=== PATIENT | male | born 1950 | race Hispanic/Latino ===

== ENCOUNTER 2021-04-08 14:05 | Inpatient (IN) | payer OTHER ==
--- OUTSIDE RECORDS SUMMARY | 2021-04-08 14:08 | XMS REPORT | Continuity of Care Document ---
:1950 Author Organization [facility] t Address [address] [place] [address] Care Team Providers Name Role Phone Tonya, Tiago Main Attending Clinician Unavailable Demetrio DACOSTA Attending Clinician Payers Payer Name Policy Type Policy Number Effective Date Expiration Date S ource Problems This patient has no known problems. Allergies, Adverse Reactions, Alerts Allergy Allergy Status Severity Reaction(s) Onset Inactive Treating Comm ents Source Name Type Date Date Clinician No Known DA Active [facility] Allergie 07-19 [facility] 00:00: [address] Medications This patient has no known medications. Procedures This patient has no known procedures. Encounters Start End Encounter Admission Attending Care Care Encounter Source Date/Time Date/Time Type Type Clinicians Facility Department ID 2021-04-06 2021-04-06 [facility] [id number] 15:49:04 16:04:04 Visit Lab [facility] [id number] Jennifer [id number] Lori [phone] [place] [address] Building 2021-04-06 2021-04-06 Office SERGIO Atkinson [id number] 14:38:26 15:24:02 Visit Christine Gallo [id number] Jennifer [id number] Professmelissa [phone] [facility] 044 Building Results This patient has no known results.
[2021-04-08 15:38] LABS: Urine Blood 1+ (Negative); Urine Glucose Negative (Negative); Urine Protein 3+ (Negative); Urine Specific Gravity 1.025 (1.005-1.030)
[2021-04-08 15:42] LABS: Basophils % 0.3 % (0-1.3); Hematocrit 44.7 % (39.6-49.0); Lymphocytes % 5.5 % (15.3-44.8); MPV 8.5 fL (7.6-11.3); RBC Red Blood Cell Count 5.47 M/uL (4.33-5.43)
[2021-04-08 16:00] LABS: Albumin 3.4 g/dL (3.4-5.0); Bilirubin Direct 0.3 mg/dL (0-0.2); Potassium 3.9 mmol/L (3.5-5.1); Protein, Total 8.8 g/dL (6.4-8.2)
[2021-04-08 16:06] LABS: Urine Bacteria >50 /HPF (NONE SEEN); Urine RBC <5 /HPF (NONE SEEN)
--- NOTE | 2021-04-08 16:27 | RAD REPORT ---
EXAM DESCRIPTION: US - Scrotum Testicles - 04/08/2021 4:11 pm CLINICAL HISTORY: Testicular pain COMPARISON: None FINDINGS: Right testicle measures 4.1 x 3.3 x 3.2 centimeters. Echotexture is homogeneous. Normal bl ood flow Left testicle measures 3.9 x 2.6 x 3 centimeters. Echotexture is homogeneous. Normal blood flow The epididymides are normal in size and echotexture. Normal blood flow is seen. Millimeter right spermatocele. Moderate complex right hydrocele. Small left hydrocele. Scrotal skin thickening IMPRESSION: Moderate complex right hydrocele may be secondary to inflammation or infection Scrotal skin thickening
--- NOTE | 2021-04-08 16:42 | RAD REPORT ---
EXAM DESCRIPTION: CT - Abdomen Pelvis W Contrast - 04/08/2021 4:21 pm CLINICAL HISTORY: Abdominal pain/right flank pain COMPARISON: none. TECHNIQUE: Computed axial tomography of the abdomen pelvis was obtained. 100 cc Isovue-300 was admin istered intravenously. Oral contrast was not requested which limits evaluation of bowel. All CT scans are performed using dose optimization technique as appropriate and may include automated exposure control or mA/KV adjustment according to patient size. FINDINGS: The liver, spleen, pancreas, adrenal and right kidney appear unremarkable. Cortical thinni ng left kidney perhaps secondary to prior inflammation There is no evidence of diverticulitis. Spondylosis involves the lumbar spine resulting spinal stenos is. Spondylolysis L5. Slight anterior subluxation of L5 on S1 IMPRESSION: No acute abnormality is displayed.
[2021-04-08] MEDS ORDERED: CEFTRIAXONE/SWI 1gm 1 GM/10 ML SYR ONE (16:54)
[2021-04-08 18:01] LABS: Anisocytosis SLIGHT; Blood Morphology Comment NOTED (NOT SEEN); Platelet Estimate ADEQ; White Blood Cell Scan OK (OK)
--- NOTE | 2021-04-08 19:03 | ER ---
Nurse's Notes [facility] Name: Chay Judge Age: 70 yrs Sex: Male : 1950 Arrival Date: 04/08/2021 Time: 14:12 Bed 13 Private MD: Diagnosis: Urinary tract infection, site not specified;Moderate complex right hydrocele Presentation: 04/08 14:15 Chief complaint: Patient states: Last Vaughn had R testicle swollen, 03/31/2021. Was ca1 supposed to be schedule for US. Last night, the R testicle started hurting real bad, also started having R lower back pain, dark colored, strong odor urine. Reports fever this morning. Coronavirus screen: Client denies travel out of the [place] in the last 14 days. fever, Client presents with at least one sign or symptom that may indicate coronavirus-19. Standard/surgical mask placed on the client. Provider contacted for isolation considerations. Ebola Screen: Patient negative for fever greater than or equal to 101.5 degrees Fahrenheit, and additional compatible Ebola Virus Disease symptoms Patient denies exposure to infectious person. Patient denies travel to an Ebola-affected area in the 21 days before illness onset. No symptoms or risks identified at this time. Initial Sepsis Screen: Does the patient meet any 2 criteria? No. Patient's initial sepsis screen is negative. Does the patient have a suspected source of infection? No. Patient's initial sepsis screen is negative. Risk Assessment: Do you want to hurt yourself or someone else? Patient reports no desire to harm self or others. Onset of symptoms was April 08, 2021. 14:15 Method Of Arrival: Ambulatory ca1 14:15 Acuity: YUSRA 3 ca1 Historical: - Allergies: 14:21 No Known Allergies; ca1 - PMHx: 14:21 Hypertension; Diabetes - NIDDM; CHF; ca1 - PSHx: 14:21 None; ca1 - Immunization history:: Client reports having NOT received the Covid vaccine. Pneumococcal vaccine is up to date, Flu vaccine is up to date. - Social history:: Smoking status: Patient reports the use of cigarette tobacco products, smokes one-half pack cigarettes per day. Screenin:43 Abuse screen: Denies threats or abuse. Denies injuries from another. Nutritional zb screening: No deficits noted. Tuberculosis screening: No symptoms or risk factors identified. Fall Risk None identified. Assessment: 15:00 General: Appears in no apparent distress. uncomfortable, Behavior is calm, cooperative. zb Pain: Complains of pain in right low back and right testicle Quality of pain is described as aching, tender, throbbing. Neuro: Level of Consciousness is awake, alert, obeys commands, Oriented to person, place, time, situation. Cardiovascular: Edema is 2+ to left midcalf, left ankle, right midcalf and right ankle. Respiratory: Airway is patent. GI: Abdomen is obese. : Urine is clear, Swelling noted on scrotum Reports pain in right lower quadrant(s) testicle. Derm: Skin is intact, Skin is normal. Musculoskeletal: Circulation, motion, and sensation intact. Range of motion: intact in all extremities. 16:00 Reassessment: Patient appears in no apparent distress at this time. Patient and/or zb family updated on plan of care and expected duration. Pain level reassessed. Patient is alert, oriented x 3, equal unlabored respirations, skin warm/dry/pink. 17:12 Reassessment: patient falling asleep. desated to [address] on 1L o2 while asleep. zb 18:34 Reassessment: Patient appears in no apparent distress at this time. Patient and/or zb family updated on plan of care and expected duration. Pain level reassessed. Patient is alert, oriented x 3, equal unlabored respirations, skin warm/dry/pink. no issues at this time. 19:00 Reassessment: ECP at bedside discussing care with patient. zb Vital Signs: 14:15 BP 156 / 83; Pulse 88; Resp 16; Temp 100.7(O); Pulse Ox 98% on R/A; Weight 117.03 kg ca1 (R); Height 5 ft. 3 in. (160.02 cm) (R); Pain 9/10; 15:45 BP 141 / 76; Pulse 90; Resp 18; Pulse Ox 95% on R/A; zb 16:30 BP 149 / 66; Pulse 93; Resp 16; Pulse Ox 95% on R/A; zb 17:00 BP 150 / 67; Pulse 92; Resp 16; Pulse Ox 98% on R/A; zb 18:34 BP 139 / 69; Pulse 99; Resp 16; Pulse Ox 95% on R/A; zb 14:15 Body Mass Index 45.70 (117.03 kg, 160.02 cm) ca1 ED Course: 14:12 Patient arrived in ED. bp1 14:20 Triage completed. ca1 14:21 Arm band placed on right wrist. ca1 14:23 Lacho Mason NP is PHCP. pm1 14:23 Vickey Jennings MD is Attending Physician. pm1 15:30 Inserted saline lock: 20 gauge in right antecubital area, using aseptic technique. zb Blood collected. 15:42 Meagan Farrar, YANELIS is Primary Nurse. zb 16:11 US Scrotum Testicles In Process Unspecified. EDMS 16:21 CT Abd/Pelvis - IV Contrast Only In Process Unspecified. EDMS 19:02 Antonio Brown DO is Hospitalizing Provider. pm1 04/09 01:41 Primary Nurse role handed off by Meagan Farrar RN tt3 07:18 Marah Rodriguez RN is Primary Nurse. ll1 07:51 No provider procedures requiring assistance completed. Patient admitted, IV remains in ll1 place. 07:52 Patient has correct armband on for positive identification. Bed in low position. Call ll1 light in reach. Side rails up X 1. Administered Medications: 04/08 16:40 Drug: Rocephin (cefTRIAXone) 1 grams Route: IV; Rate: calculated rate; Site: left zb antecubital; 18:58 Follow up: Response: No adverse reaction; IV Status: Completed infusion zb 18:58 Drug: LevaQUIN (levofloxacin) 750 mg Volume: 150 ml; Route: IVPB; Infused Over: 90 zb mins; Site: left antecubital; 20:00 Follow up: Response: No adverse reaction; IV Status: Completed infusion; IV Intake: zb 150ml Intake: 20:00 IV: 150ml; Total: 150ml. zb Outcome: 19:03 Decision to Hospitalize by Provider. pm1 04/09 07:51 Admitted to Med/surg accompanied by tech, room 216, with chart, Report called to maxime Kowalski RN on . Condition: stable 07:52 Patient left the ED. 1 Signatures: Dispatcher [employer] EDMS Lacho Mason NP INDUSTRIAL COFFEE GRINDER pm1 Trisha Arreola RN RN ca1 Marah Rodriguez, RN RN ll1 Christine Marshall bp1 Mukesh Bello tt3 Meagan Farrar, RN RN zb
--- NOTE | 2021-04-08 19:03 | EDPHYS ---
Physician Documentation [facility] Name: Chay Judge Age: 70 yrs Sex: Male : 1950 Arrival Date: 04/08/2021 Time: 14:12 Bed 13 Private MD: ED Physician Vickey Jennings HPI: 04/08 14:51 This 70 yrs old Male presents to ER via Ambulatory with complaints of Back pm1 Pain, Fever. 14:51 The patient presents with flank pain, of the right low back, swelling, of the right pm1 testicle. Onset: The symptoms/episode began/occurred right scrotal swelling onset 03/31. Modifying factors: The symptoms are alleviated by nothing, the symptoms are aggravated by nothing. Associated signs and symptoms: Pertinent positives: fever onset this AM and right flank pain. Severity of symptoms: in the emergency department the symptoms are actually worse. The patient has not experienced similar symptoms in the past. The patient has been recently seen by a physician: the patient's primary care provider, with similar presenting complaints, US ordered and has appointment scheduled for 04/13. Patient did not have the U/S performed. 15:34 Patient reports trauma to his testicles prior to onset of symptoms. Right pm1 scrotal/testicular area pinched by toilet seat when sitting down prior to onset of swelling and pain. Historical: - Allergies: 14:21 No Known Allergies; ca1 - PMHx: 14:21 Hypertension; Diabetes - NIDDM; CHF; ca1 - PSHx: 14:21 None; ca1 - Immunization history:: Client reports having NOT received the Covid vaccine. Pneumococcal vaccine is up to date, Flu vaccine is up to date. - Social history:: Smoking status: Patient reports the use of cigarette tobacco products, smokes one-half pack cigarettes per day. ROS: 14:51 Eyes: Negative for injury, pain, redness, and discharge, ENT: Negative for injury, pm1 pain, and discharge, Neck: Negative for injury, pain, and swelling, Abdomen/GI: Negative for abdominal pain, nausea, vomiting, diarrhea, and constipation, Back: Negative for injury and pain, MS/Extremity: Negative for injury and deformity, Skin: Negative for injury, rash, and discoloration, Neuro: Negative for headache, weakness, numbness, tingling, and seizure. 14:51 Constitutional: Positive for fever, Negative for poor PO intake. 14:51 Cardiovascular: Negative for chest pain, edema. 14:51 Respiratory: Negative for cough, shortness of breath. 14:51 : Positive for testicular pain swelling right testicle, right flank pain. Exam: 14:51 Constitutional: This is a well developed, well nourished patient who is awake, alert, pm1 and in no acute distress. 14:51 Head/Face: Normocephalic, atraumatic. 14:51 Skin: Warm, dry with normal turgor. Normal color with no rashes, no lesions, and no evidence of cellulitis. 14:51 MS/ Extremity: Pulses equal, no cyanosis. Neurovascular intact. Full, normal range of motion. 14:51 Eyes: Exam is negative for acute changes, Extraocular movements: no acute changes, Conjunctiva: normal, Sclera: no acute changes, icterus, is not appreciated. 14:51 ENT: Mouth: Lips: normal, Oral mucosa: normal, pink and intact, moist. 14:51 Cardiovascular: Rate: normal, Rhythm: regular, Pulses: no pulse deficits are appreciated, Edema: is not appreciated. 14:51 Respiratory: Exam negative for acute changes, respiratory distress, shortness of breath, Breath sounds: are clear throughout. 14:51 Abdomen/GI: Inspection: obese Palpation: abdomen is soft and non-tender. 14:51 Back: pain, that is mild, of the right low back, normal spinal alignment noted. 14:51 : Male external genitalia: penile discharge, is absent, swelling, of the right side of scrotum is noted, No cellulitis present. No abscess. No crepitus. No fluctuance, Nutrition Therapist: Stefania HILARIO. 14:51 Neuro: Exam negative for acute changes, Orientation: is normal, Mentation: is normal, Motor: is normal, moves all fours. Vital Signs: 14:15 BP 156 / 83; Pulse 88; Resp 16; Temp 100.7(O); Pulse Ox 98% on R/A; Weight 117.03 kg ca1 (R); Height 5 ft. 3 in. (160.02 cm) (R); Pain 9/10; 15:45 BP 141 / 76; Pulse 90; Resp 18; Pulse Ox 95% on R/A; zb 16:30 BP 149 / 66; Pulse 93; Resp 16; Pulse Ox 95% on R/A; zb 17:00 BP 150 / 67; Pulse 92; Resp 16; Pulse Ox 98% on R/A; zb 18:34 BP 139 / 69; Pulse 99; Resp 16; Pulse Ox 95% on R/A; zb 14:15 Body Mass Index 45.70 (117.03 kg, 160.02 cm) ca1 MDM: 14:25 Patient medically screened. pm1 14:58 Data reviewed: vital signs. Data interpreted: Pulse oximetry: on room air is 98 %. pm1 Interpretation: normal. 18:16 Counseling: I had a detailed discussion with the patient and/or guardian regarding: the pm1 historical points, exam findings, and any diagnostic results supporting the discharge/admit diagnosis, lab results, radiology results, the need for further work-up and treatment in the hospital. 18:38 Physician consultation: Jose Alfredo Lou MD was contacted at 18:38, regarding consult, pm1 patient's condition, based on discussion and presentation he does not feel that patient requires transfer to another facility or surgical intervention. Patient just requires medical management with antibiotics. 19:01 Physician consultation: Joel STEVEN was called at 19:01, was contacted at 19:01, pm1 regarding admission, patient's condition, and will see patient in ED, shortly, Admit to [facility]. 04/08 14:51 Order name: Basic Metabolic Panel; Complete Time: 16:07 pm1 04/08 14:51 Order name: CBC with Diff; Complete Time: 18:15 pm1 04/08 14:51 Order name: Hepatic Function; Complete Time: 16:07 pm1 04/08 14:51 Order name: Lipase; Complete Time: 16:07 pm1 04/08 14:52 Order name: Urine Microscopic Only; Complete Time: 16:07 pm1 04/08 15:38 Order name: Urine Dipstick-Ancillary; Complete Time: 15:49 EDKY 04/08 16:08 Order name: Blood Culture Adult (2) pm1 04/08 16:09 Order name: Urine Culture EDKY 04/08 18:01 Order name: CBC Smear Scan; Complete Time: 18:15 EDKY 04/08 19:05 Order name: COVID-19 : Document "Date of Symptom Onset" if Symptomatic. tt3 05/29 20:28 Order name: SARS-COV-2 RT PCR; Complete Time: 20:37 EDMS 04/08 23:58 Order name: Glucose, Ancillary Testing EDMS 04/09 00:26 Order name: Procalcitonin EDMS 04/08 14:51 Order name: IV Saline Lock; Complete Time: 15:42 pm1 04/08 14:51 Order name: Labs collected and sent; Complete Time: 15:42 pm1 04/08 14:51 Order name: US Scrotum Testicles; Complete Time: 16:39 pm1 04/08 14:51 Order name: CT Abd/Pelvis - IV Contrast Only; Complete Time: 16:46 pm1 04/08 14:52 Order name: Urine Dipstick-Ancillary (obtain specimen); Complete Time: 15:42 pm1 04/09 04:37 Order name: CBC with Automated Diff EDMS 04/09 04:57 Order name: Comprehensive Metabolic Panel EDKY 04/09 04:57 Order name: Lipid Profile EDKY 04/09 04:57 Order name: C-Reactive Protein EDKY 04/09 04:57 Order name: T4 Free EDMS 04/09 04:57 Order name: Magnesium EDMS 04/09 04:57 Order name: Thyroid Stimulating Hormone EDKY 04/09 04:57 Order name: Hemoglobin A1c EDKY 04/09 07:46 Order name: Glucose, Ancillary Testing EDMS Administered Medications: 16:40 Drug: Rocephin (cefTRIAXone) 1 grams Route: IV; Rate: calculated rate; Site: left zb antecubital; 18:58 Follow up: Response: No adverse reaction; IV Status: Completed infusion zb 18:58 Drug: LevaQUIN (levofloxacin) 750 mg Volume: 150 ml; Route: IVPB; Infused Over: 90 zb mins; Site: left antecubital; 20:00 Follow up: Response: No adverse reaction; IV Status: Completed infusion; IV Intake: zb 150ml Disposition: 04/10 07:18 Co-signature as Attending Physician, Vickey Jennings MD I agree with the assessment and riaz plan of care. Disposition: 04/08/21 19:03 Hospitalization ordered by Antonio Brown for Inpatient Admission. Preliminary diagnosis are Urinary tract infection, site not specified, Moderate complex right hydrocele. - Bed requested for Telemetry/MedSurg (Inpatient). - Status is Inpatient Admission. ll1 - Condition is Stable. - Problem is new. - Symptoms have improved. Signatures: Dispatcher [employer] [facility] Vickey Jennings MD MD cha Garcia, Cindy, RN RN VyLacho dye, READING RECOVERY TEACHER READING RECOVERY TEACHER pm1 Pat Castro eb Trisha Arreola, RN RN ca1 Marah Rodriguez RN RN ll1 Meagan Farrar RN RN zb Corrections: (The following items were deleted from the chart) 04/08 19:41 19:06 CORONAVIRUS ordered. [facility] 20:53 19:03 Hospitalization Ordered by Antonio Brown DO for Inpatient Admission. Preliminary diagnosis is Urinary tract infection, site not specified; Moderate complex right hydrocele. Bed requested for Telemetry/MedSurg (Inpatient). Status is Inpatient Admission. Condition is Stable. Problem is new. Symptoms have improved. pm1 04/09 07:28 04/08 20:53 04/08/2021 19:03 Hospitalization Ordered by Antonio Brown DO for Inpatient eb Admission. Preliminary diagnosis is Urinary tract infection, site not specified; Moderate complex right hydrocele. Bed requested for [facility] ER HOLD. Status is Inpatient Admission. Condition is Stable. Problem is new. Symptoms have improved. 04/09 07:52 07:28 04/08/2021 19:03 Hospitalization Ordered by Antonio Brown DO for Inpatient ll1 Admission. Preliminary diagnosis is Urinary tract infection, site not specified; Moderate complex right hydrocele. Bed requested for Telemetry/MedSurg (Inpatient). Status is Inpatient Admission. Condition is Stable. Problem is new. Symptoms have improved. eb
[2021-04-08] MEDS ORDERED: Levofloxacin 750mg IV 750 MG/150 ML BAG IV ONE (19:15)
--- NOTE | 2021-04-08 20:09 | P.HP ---
Certification for Inpatient Patient admitted to: Inpatient With expected LOS: >2 Midnights Patient will require the following post-hospital care: None Practitioner: I am a practitioner with admitting privileges, knowledge of patient current condition, hospital course, and medical plan of care. Services: Services provided to patient in accordance with Admission requirements found in Title 42 Section 412.3 of the Code of Federal Regulations Patient History Date of Service: 04/08/21 Primary Care Provider: Dr. Washington, Dr. Morrow cardiology Reason for admission: Scrotal cellulitis History of Present Illness: 70-year-old male with history of diabetes mellitus type 2, hypertension, CHF, atrial fibrillation on chronic anticoagulation therapy, obstructive sleep apnea presents emergency department for right flank pain, scrotal swelling. Patient reports that approximately 2 weeks ago he thinks he might have caught his scrotum in the toilet seat. Patient reports he has noticed swelling to the right testicle over the course of the last week, fever started today. Patient evaluated in the emergency department, labs significant for white blood cell count 19 with left shift GFR 57 glucose 123 urinalysis positive nitrate, trace leukocyte greater than 50 bacteria on microscopic analysis no squamous cells present. Ultrasound of the scrotum demonstrates moderate complex right hydrocele maybe secondary to inflammation or infection with scrotal skin thickening, CT abdomen pelvis demonstrates no acute findings. Patient without any abdominal tenderness, CVA tenderness, on exam right testicle is significantly enlarged, mild tenderness to palpation, scrotum does appear edematous/mildly cellulitic, no fluctuance, crepitus, surrounding cellulitis or significant evidence gas producing infection. Case was discussed with neurology while patient was in the emergency department who recommends antibiotic therapy with Levaquin. ED provider wishes to admit for further evaluation and management. - Past Medical/Surgical History -: Diabetes mellitus type 2 -: CHF-unknown EF -: Atrial fibrillation on chronic anticoagulation therapy -: Obstructive sleep apnea -: none Psychosocial/ Personal History: Patient lives with his girlfriend and is retired - Family History Father -: Heart disease Mother -: Other (see notes) (Aneurysm) Sister -: Diabetes - Social History Smoking Status: Current every day smoker Counseled patient to stop smoking for: less than 10 minutes Smoking therapy provided: No (Patient declined) Alcohol use: No CD- Drugs: No Caffeine use: Yes Place of Residence: Home Review of Systems General: Fever, Chills, Malaise Gastrointestinal: Other (Right flank pain) Genitourinary: Other (Scrotal swelling, right testicle), As per HPI Physical Examination - Physical Exam General: Alert, In no apparent distress, Oriented x3 HEENT: Atraumatic, PERRLA, Mucous membr. moist/pink, EOMI, Sclerae nonicteric Neck: Supple, 2+ carotid pulse no bruit, No LAD, Without JVD or thyroid abnormality Respiratory: Clear to auscultation bilaterally, Normal air movement Cardiovascular: Regular rate/rhythm, Normal S1 S2 Gastrointestinal: Normal bowel sounds, No tenderness, No masses, No rebound, No guarding, Other (No CVA tenderness) Musculoskeletal: No tenderness Integumentary: No rashes Neurological: Normal gait, Normal speech, Normal strength at 5/5 x4 extr, Normal tone, Normal affect Lymphatics: No axilla or inguinal lymphadenopathy External genitalia: Edema, Tenderness, Other (Right testicle enlarged, mild tenderness to palpation, some scrotal edema/cellulitis noted) - Studies Laboratory Data (last 24 hrs) 04/08/21 15:29: WBC 19.00 H, Hgb 14.7, Hct 44.7, Plt Count 260 04/08/21 15:29: Sodium 136, Potassium 3.9, BUN 15, Creatinine 1.26, Glucose 123 H, Total Bilirubin 1.0, AST 29, ALT 24, Alkaline Phosphatase 92, Lipase 100 Assessment and Plan - Plan Assessment Leukocytosis, fever, UTI, scrotal edema with moderately complex right hydrocele Atrial fibrillation on chronic anticoagulation therapy Diabetes mellitus type 2 Chronic CHF-unknown EF Hypertension, hyperlipidemia Obstructive sleep apnea Plan Leukocytosis, fever, UTI, scrotal edema with moderately complex right hydrocele: Case was discussed with urology by ED provider, recommendation was for Levaquin. No evidence of gas forming infection at this time. No indication for surgical intervention at this time. Continue with IV Levaquin, trend daily labs, urine and blood cultures obtained. No abdominal or CVA tenderness. Will continue to monitor patient closely, continue Eliquis for DVT prophylaxis. Atrial fibrillation on chronic anticoagulation therapy: Continue Eliquis and other home medications, monitor on telemetry. Stable this time. Diabetes mellitus type 2: A.c. HS Accu-Cheks, sliding scale insulin therapy. A1c with morning labs. Chronic CHF-unknown EF: Continue Lasix 80 mg p.o. b.i.d., no previous echo available for review. Hypertension, hyperlipidemia: Continue home medications, adjust as necessary Obstructive sleep apnea: Provide CPAP at night as needed. Discharge Plan: Home Plan to discharge in: 48 Hours - Advance Directives Does patient have a Living Will: No Does patient have a Durable POA for Healthcare: No - Code Status/Comfort Care Code Status Assessed: Yes (Full code) Critical Care: No Time Spent Managing Pts Care (In Minutes): 55
[2021-04-08] MEDS ORDERED: HYDROCODONE/APAP 7.5/325 MG TAB PO PRN (23:25)
[2021-04-08] MEDS ORDERED: ONDANSETRON 4 MG/2 ML VIAL IV PRN (23:25)
[2021-04-08] MEDS ORDERED: ACETAMINOPHEN 500 MG TAB PO PRN (23:25)
[2021-04-09] MEDS ORDERED: FUROSEMIDE 40 MG TABLET ONE (00:09)
[2021-04-09] MEDS ORDERED: APIXABAN 5 MG TABLET ONE (00:09)
[2021-04-09] MEDS: INSULIN -REGULAR HUMAN 50 UNIT/0.5 ML ML SQ SCH ×2 (00:18→07:30)
[2021-04-09] MEDS: APIXABAN 5 MG TABLET PO SCH ×2 (00:18→08:38)
[2021-04-09] MEDS: FUROSEMIDE 40 MG TABLET PO SCH ×2 (00:18→08:38)
[2021-04-09 01:11] VITALS: O2SAT 94; BMI 45.7
[2021-04-09 04:15] VITALS: BP 128/56
[2021-04-09 04:32] LABS: Absolute Lymphocytes (CBC) 1.5 K/uL (0.7-4.9); Basophils % 0.3 % (0-1.3); Hematocrit 38.5 % (39.6-49.0); Lymphocytes % 10.3 % (15.3-44.8); MPV 8.1 fL (7.6-11.3); RBC Red Blood Cell Count 4.67 M/uL (4.33-5.43)
[2021-04-09 04:54] LABS: Albumin 2.6 g/dL (3.4-5.0); Potassium 3.6 mmol/L (3.5-5.1); Protein, Total 7.2 g/dL (6.4-8.2); Thyroid Stimulating Hormone 3.11 uIU/mL (0.360-3.740)
[2021-04-09] MEDS ORDERED: carvediloL 6.25 MG TAB PO SCH (08:00)
--- NOTE | 2021-04-09 08:34 | P.DS ---
Admission Date: 04/08/21 Discharge Date: 04/09/21 Primary Care Provider: Dr. Washington, Cardiology-Dr. Morrow Disposition: ROUTINE DISCHARGE Discharge Condition: GOOD Reason for Admission: Scrotal cellulitis Consultations: none Procedures: COVID: [Negative] CT Scan: COMPARISON: none. TECHNIQUE: Computed axial tomography of the abdomen pelvis was obtained. 100 cc Isovue-300 was administered intravenously. Oral contrast was not requested which limits evaluation of bowel. All CT scans are performed using dose optimization technique as appropriate and may include automated exposure control or mA/KV adjustment according to patient size. FINDINGS: The liver, spleen, pancreas, adrenal and right kidney appear unremarkable. Cortical thinning left kidney perhaps secondary to prior inflammation There is no evidence of diverticulitis. Spondylosis involves the lumbar spine resulting spinal stenosis. Spondylolysis L5. Slight anterior subluxation of L5 on S1 IMPRESSION: No acute abnormality is displayed. Scrotal US: COMPARISON: None FINDINGS: Right testicle measures 4.1 x 3.3 x 3.2 centimeters. Echotexture is homogeneous. Normal blood flow Left testicle measures 3.9 x 2.6 x 3 centimeters. Echotexture is homogeneous. Normal blood flow The epididymides are normal in size and echotexture. Normal blood flow is seen. Millimeter right spermatocele. Moderate complex right hydrocele. Small left hydrocele. Scrotal skin thickening IMPRESSION: Moderate complex right hydrocele may be secondary to inflammation or infection Scrotal skin thickening Medical Problem List: Leukocytosis, fever, scrotal edema secondary to scrotal cellulitis complicated with moderately complex right hydrocele Atrial fibrillation on chronic anticoagulation therapy Diabetes mellitus type 2 Chronic CHF-unknown EF Hypertension Hyperlipidemia Obstructive sleep apnea Brief History of Present Illness: 70-year-old male with history of diabetes mellitus type 2, hypertension, CHF, atrial fibrillation on chronic anticoagulation therapy, obstructive sleep apnea presents emergency department for right flank pain, scrotal swelling. Patient reports that approximately 2 weeks ago he thinks he might have caught his scrotum in the toilet seat. Patient reports he has noticed swelling to the right testicle over the course of the last week, fever started today. Patient evaluated in the emergency department, labs significant for white blood cell count 19 with left shift GFR 57 glucose 123 urinalysis positive nitrate, trace leukocyte greater than 50 bacteria on microscopic analysis no squamous cells present. Ultrasound of the scrotum demonstrates moderate complex right hydrocele maybe secondary to inflammation or infection with scrotal skin thickening, CT abdomen pelvis demonstrates no acute findings. Patient without any abdominal tenderness, CVA tenderness, on exam right testicle is significantly enlarged, mild tenderness to palpation, scrotum does appear edematous/mildly cellulitic, no fluctuance, crepitus, surrounding cellulitis or significant evidence gas producing infection. Case was discussed with urology. Urology suggested possible outpatient treatment. ER wanted the patient to be admitted for further observation. Hospital Course: Patient presented with pain to the right scrotal region. Patient found to have scrotal cellulitis complicated with moderately complex right hydrocele. Patient was evaluated in the emergency room. Patient was admitted for observation. Case discussed with urology. Patient has improved. No significant erythema, swelling noted. Some induration noted but no evidence of intra-abdominal abnormality. No further intervention required. At discharge patient will continue with Levaquin 500 mg daily for 14 days. The patient will be provided lactobacillus twice daily and a limited supply of tramadol 50 mg 1 pill twice daily as needed for pain. Recommend to elevate testicles when lying or sitting. Patient may apply cold compress to area at times to help with inflammation. Recommend for the patient to follow-up with urology within 1 week to follow-up his hospitalization and co ntinue his care. Education on scrotal cellulitis and hydrocele provided. Patient with atrial fibrillation on chronic anticoagulation therapy. This appears stable. At discharge she will continue with Eliquis 5 mg 1 pill twice daily, Crestor 20 mg daily, and carvedilol 6.25 mg 1 pill twice daily. Recommend follow-up with cardiology as directed. Patient with hypertension. At discharge patient will continue with the current medications of Norvasc 10 mg daily and carvedilol 6.25 mg 1 pill twice daily. Recommend to maintain blood pressure less than 130/80. Further adjustment can be done by his PCP. Patient with chronic CHF. Patient takes Lasix 40 mg 1 pill twice daily. Patient will continue with his home medication. Continue with 1500 cc/day fluid restriction. Continue with recommendations as per his park guard. Patient with diabetes mellitus type 2. At discharge patient will continue with his current medications. Recommend to maintain blood sugar less than 140 fasting and less than 200 after meals. Further adjustment in his medication can be done by his PCP. Recommend to recheck hemoglobin A1c in 3 months to monitor his progress. Patient with obstructive sleep apnea. At discharge patient may continue with CPAP at night. Patient with hyperlipidemia. At discharge patient will continue with Crestor 20 mg daily. Vital Signs/Physical Exam: Temp Pulse Resp BP Pulse Ox 97.2 F 77 22 H 128/56 L 97 04/09/21 07:30 04/09/21 07:30 04/09/21 07:30 04/09/21 07:30 04/09/21 07:30 General: Alert, In no apparent distress, Oriented x3, Cooperative HEENT: Atraumatic Neck: Supple Respiratory: Clear to auscultation bilaterally, Normal air movement Cardiovascular: Irregular heart rate/rhythm ( A. fib rate controlled) Gastrointestinal: Normal bowel sounds, No ascites, No tenderness, No masses, No rebound, No guarding Musculoskeletal: No contractures Integumentary: No rashes, No cyanosis Neurological: Normal speech, Normal strength at 5/5 x4 extr, Normal tone, Normal affect External genitalia: Other (No significant swelling to the scrotal region. No significant erythema noted to the scrotal region. Some induration noted to the scrotal region on the right side. Hydrocele noted. No crepitus noted. No breakdown in skin. Pain improved.) Laboratory Data at Discharge: WBC 14.50 K/uL (4.3-10.9) H D 04/09/21 04:10 Hgb 12.7 g/dL (13.6-17.9) L 04/09/21 04:10 Hct 38.5 % (39.6-49.0) L 04/09/21 04:10 Plt Count 210 K/uL (152-406) 04/09/21 04:10 Sodium 137 mmol/L (136-145) 04/09/21 04:10 Potassium 3.6 mmol/L (3.5-5.1) 04/09/21 04:10 BUN 14 mg/dL (7-18) 04/09/21 04:10 Creatinine 1.20 mg/dL (0.55-1.3) 04/09/21 04:10 Glucose 102 mg/dL (74-106) 04/09/21 04:10 Magnesium 2.0 mg/dL (1.8-2.4) 04/09/21 04:10 Total Bilirubin 1.0 mg/dL (0.2-1.0) 04/09/21 04:10 AST 21 U/L (15-37) 04/09/21 04:10 ALT 16 U/L (12-78) 04/09/21 04:10 Alkaline Phosphatase 67 U/L (45-117) 04/09/21 04:10 Triglycerides 98 mg/dL (<150) 04/09/21 04:10 Cholesterol 59 mg/dL (<200) 04/09/21 04:10 HDL Cholesterol 24 mg/dL (40-60) L 04/09/21 04:10 Cholesterol/HDL Ratio 2.46 04/09/21 04:10 Lipase 100 U/L (73-393) 04/08/21 15:29 Home Medications: Amlodipine [Norvasc*] 10 mg PO DAILY 04/09/21 Apixaban [Eliquis] 5 mg PO BID 04/09/21 Furosemide 40 mg PO BID 04/09/21 Lactobacillus Acidophilus [Acidophilus Lactobacilli] 1 each PO BID #28 capsule 04/09/21 Levofloxacin [Levaquin] 500 mg PO DAILY #14 tablet 04/09/21 Nateglinide [Starlix] 60 mg PO TID 04/09/21 Rosuvastatin Calcium 20 mg PO BEDTIME 04/09/21 carvediloL [Carvedilol] 6.25 mg PO BID 04/09/21 traMADol HCL [Ultram*] 50 mg PO BID PRN #10 tab 04/09/21 New Medications: Lactobacillus Acidophilus [Acidophilus Lactobacilli] 1 each PO BID #28 capsule Levofloxacin [Levaquin] 500 mg PO DAILY #14 tablet traMADol HCL [Ultram*] 50 mg PO BID PRN #10 tab PRN Reason: Pain Physician Discharge Instructions: Patient presented with pain to the right scrotal region. Patient found to have scrotal cellulitis complicated with moderately complex right hydrocele. Patient was evaluated in the emergency room. Patient was admitted for observation. Case discussed with urology. Patient has improved. No significant erythema, swelling noted. Some induration noted but no evidence of intra-abdominal abnormality. No further intervention required. At discharge patient will continue with Levaquin 500 mg daily for 14 days. The patient will be provided lactobacillus twice daily and a limited supply of tramadol 50 mg 1 pill twice daily as needed for pain. Recommend to elevate testicles when lying or sitting. Patient may apply cold compress to area at times to help with inflammation. Recommend for the patient to follow-up with urology within 1 week to follow-up his hospitalization and continue his care. Education on scrotal cellulitis and hydrocele provided. Patient with atrial fibrillation on chronic anticoagulation therapy. This appears stable. At discharge she will continue with Eliquis 5 mg 1 pill twice daily, Crestor 20 mg daily, and carvedilol 6.25 mg 1 pill twice daily. Recommend follow-up with cardiology as directed. Patient with hypertension. At discharge patient will continue with the current medications of Norvasc 10 mg daily and carvedilol 6.25 mg 1 pill twice daily. Recommend to maintain blood pressure less than 130/80. Further adjustment can be done by his PCP. Patient with chronic CHF. Patient takes Lasix 40 mg 1 pill twice daily. Patient will continue with his home medication. Continue with 1500 cc/day fluid restriction. Continue with recommendations as per his park guard. Patient with diabetes mellitus type 2. At discharge patient will continue with his current medications. Recommend to maintain blood sugar less than 140 fasting and less than 200 after meals. Further adjustment in his medication can be done by his PCP. Recommend to recheck hemoglobin A1c in 3 months to monitor his progress. Patient with obstructive sleep apnea. At discharge patient may continue with CPAP at night. Patient with hyperlipidemia. At discharge patient will continue with Crestor 20 mg daily. Diet: AHA Activity: Ad joan Followup: Unknown,U [Primary Care Provider] - Time spent managing pt's care (in minutes): 55
[2021-04-09] MEDS ORDERED: FUROSEMIDE 40 MG TABLET PO SCH (09:00)
[2021-04-09] MEDS ORDERED: AMLODIPINE 10 MG TAB PO SCH (09:00)
[2021-04-09] MEDS ORDERED: POTASSIUM CL SA 10 MEQ TAB PO ONE (09:00)
[2021-04-09] MEDS ORDERED: PNEUMOCOCCAL VACCINE 0.5 ML IMVAC ONE (09:00)
[2021-04-09 09:29] VITALS: TEMP 97.7
[2021-04-09] MEDS ORDERED: Levofloxacin500mg IV 500 MG/100 ML BAG IV SCH (18:00)
[2021-04-09] MEDS ORDERED: ROSUVASTATIN 10 MG TAB PO SCH (21:00)
== END 2021-04-09 11:32 | disposition home or self-care (01) | DRG 728 ==
LOC: ER 14:05 → ERHOLD 19:52 → 2ND 04-09 07:54
PROVIDERS: ADMIT Family Medicine; ATTEND Family Medicine
DX: N49.2 Inflammatory disorders of scrotum (principal); N39.0 Urinary tract infection, site not specified; N43.3 Hydrocele, unspecified; I48.91 Unspecified atrial fibrillation; I11.0 Hypertensive heart disease with heart failure; I50.9 Heart failure, unspecified; G47.33 Obstructive sleep apnea (adult) (pediatric); E11.9 Type 2 diabetes mellitus without complications; E78.5 Hyperlipidemia, unspecified; Z79.01 Long term (current) use of anticoagulants; Z20.822 Contact with and (suspected) exposure to COVID-19
CPT/HCPCS: 36415; 74177; 76870; 80048; 80053; 80061; 80076; 81003; 81015; 82947; 83036; 83690; 83735; 84145; 84439; 84443; 85025; 86140; 87040; 87077; 87086; 87088; 87186; 87205; 94660; 96365; 96366; 96367; 99285; J0696; Q9967; U0003

== ENCOUNTER 2021-05-24 09:49 | Inpatient (IN) | payer OTHER ==
--- OUTSIDE RECORDS SUMMARY | 2021-05-24 09:52 | XMS REPORT | Continuity of Care Document ---
:1950 Author Organization [facility] t Address [address] [place] [address] Care Team Providers Name Role Phone Evelyne Washington MD Attending Clinician Payers Payer Name Policy Type Policy Number Effective Date Expiration Date S ource Problems This patient has no known problems. Allergies, Adverse Reactions, Alerts Allergy Allergy Status Severity Reaction(s) Onset Inactive Treating Comm ents Source Name Type Date Date Clinician No Known DA Active [facility] Allergie 07-19 [facility] 00:00: [address] Medications This patient has no known medications. Procedures This patient has no known procedures. Encounters Start End Encounter Admission Attending Care Care Encounter Source Date/Time Date/Time Type Type Clinicians Facility Department ID 2021-05-19 2021-05-19 Outpatient [facility] [id number] [facility]:00:00 00:00:00 [facility] 2021-05-12 2021-05-12 Telephone SERGIO Washington [id number] 00:00:00 00:00:00 Pat Gallo [id number] Jennifer [id number] Lori [id number] [address] 2021-04-19 2021-04-19 Outpatient [facility] [id number] [facility] 00:00:00 00:00:00 [facility] dominique [facility] Results This patient has no known results.
[2021-05-24] MEDS ORDERED: IBUPROFEN 200 MG TAB PO ONE (10:35)
[2021-05-24] MEDS ORDERED: IBUPROFEN 400 MG TAB ONE (10:35)
--- NOTE | 2021-05-24 11:55 | RAD REPORT ---
EXAM DESCRIPTION: RAD - Chest Pa And Lat (2 Views) - 05/24/2021 11:39 am CLINICAL HISTORY: Cough;Fever COMPARISON: None TECHNIQUE: Frontal and lateral views of the chest were obtained. FINDINGS: The lungs are clear of mass or consolidation. No failure or volume overload. Interstitial markings are increased in the lower lung momin suspected to be baseline. Heart size is normal and central vasculature is within normal limits. No pleural effusion or pneu mothorax seen. Thoracic spine degenerative changes are present. There is bridging ossification spanning numerous lev els of the thoracic spine. This is probably diffuse idiopathic skeletal hyperostosis (DISH), not of a cute significance. Patient has prominent degenerative change at the right AC joint. No aortic abnormality. IMPRESSION: No acute cardiopulmonary process.
[2021-05-24 12:41] LABS: Urine Blood 3+ (Negative); Urine Glucose Negative (Negative); Urine Protein 3+ (Negative); Urine Specific Gravity >=1.030 (1.005-1.030); Urine pH 5.5 (5.0-7.0)
[2021-05-24 12:46] LABS: Absolute Lymphocytes (CBC) 0.7 K/uL (0.7-4.9); Basophils % 0.3 % (0-1.3); Hematocrit 40.9 % (39.6-49.0); Lymphocytes % 6.1 % (15.3-44.8); MPV 8.8 fL (7.6-11.3); RBC Red Blood Cell Count 5.03 M/uL (4.33-5.43)
[2021-05-24 13:11] LABS: Blood Morphology Comment NOT SEEN (NOT SEEN); Platelet Estimate ADEQ
[2021-05-24 13:14] LABS: Albumin 2.4 g/dL (3.4-5.0); Bilirubin Direct 0.3 mg/dL (0-0.2); Bilirubin Total 0.7 mg/dL (0.2-1.0); CKMB Creatine Kinase MB 1.2 ng/mL (1.0-3.6); Potassium 3.4 mmol/L (3.5-5.1); Protein, Total 7.7 g/dL (6.4-8.2); Troponin (Emerg Dept Use Only) 0.02 ng/mL (0.0-0.045)
[2021-05-24] MEDS ORDERED: NA CHLORIDE 0.9% 1,000 ML ONE ×3 (13:15→20:34)
[2021-05-24 13:16] LABS: Urine Bacteria LOADED /HPF (NONE SEEN); Urine RBC >50 /HPF (NONE SEEN)
--- NOTE | 2021-05-24 14:28 | ER ---
Nurse's Notes [facility] Name: Chay Judge Age: 70 yrs Sex: Male : 1950 Arrival Date: 05/24/2021 Time: 09:52 Bed 26 Private MD: Diagnosis: UTI/ Urinary tract infection, site not specified;Acute kidney failure, unspecified;Tubulo-interstitial nephritis, not specified as acute or chronic Presentation: 05/24 10:10 Chief complaint: Patient states: Fever, loss of appetite and CARTER x4 days. Coronavirus jl7 screen: Client denies travel out of the [place] in the last 14 days. fever, headache, Client presents with at least one sign or symptom that may indicate coronavirus-19. Standard/surgical mask placed on the client. Provider contacted for isolation considerations. Ebola Screen: No symptoms or risks identified at this time. Initial Sepsis Screen: Does the patient meet any 2 criteria? No. Patient's initial sepsis screen is negative. Does the patient have a suspected source of infection? No. Patient's initial sepsis screen is negative. Risk Assessment: Do you want to hurt yourself or someone else? Patient reports no desire to harm self or others. Onset of symptoms was May 20, 2021. 10:10 Method Of Arrival: Ambulatory [facility] 10:10 Acuity: YUSRA 3 jl7 Triage Assessment: 10:17 Headache History: The patient has had previous headaches and this one is similar to jl7 previous episodes. General: Appears in no apparent distress. uncomfortable, Behavior is calm, cooperative, appropriate for age. Pain: Complains of pain in carter Pain currently is 6 out of 10 on a pain scale. Pain began 2-3 days ago. Also complains of no other associated symptoms. Neuro: Level of Consciousness is awake, alert, obeys commands, Oriented to person, place, time, situation. Historical: - Allergies: 10:17 No Known Allergies; jl7 - PMHx: 10:17 CHF; Diabetes - NIDDM; Hypertension; Dementia; jl7 - Immunization history:: Adult Immunizations up to date, Client reports receiving the 1st dose of the Covid vaccine. - Social history:: Smoking status: Patient reports the use of cigarette tobacco products. Screenin:57 Abuse screen: Denies threats or abuse. Denies injuries from another. Nutritional ld1 screening: No deficits noted. Tuberculosis screening: No symptoms or risk factors identified. Fall Risk None identified. Assessment: 12:43 General: Appears in no apparent distress. comfortable. Pain: Denies pain. Neuro: Level ld1 of Consciousness is awake, alert, obeys commands, Oriented to person, place, time, situation. Cardiovascular: Capillary refill < 3 seconds Patient's skin is warm and dry. Respiratory: Airway is patent Respiratory effort is even, unlabored, Respiratory pattern is regular, symmetrical. GI: Abdomen is round non-distended. : No signs and/or symptoms were reported regarding the genitourinary system. EENT: No signs and/or symptoms were reported regarding the EENT system. Derm: No signs and/or symptoms reported regarding the dermatologic system. Musculoskeletal: No signs and/or symptoms reported regarding the musculoskeletal system. 12:56 Reassessment: Notified ERP of VS. See [facility] for orders. ld1 15:15 Reassessment: Patient appears in no apparent distress at this time. Patient and/or ld1 family updated on plan of care and expected duration. Pain level reassessed. Patient is alert, oriented x 3, equal unlabored respirations, skin warm/dry/pink. 16:06 Reassessment: Patient appears in no apparent distress at this time. Patient and/or ld1 family updated on plan of care and expected duration. Pain level reassessed. Vital Signs: 10:10 BP 125 / 110; Pulse 84; Resp 23; Temp 102.5(O); Pulse Ox 95% ; Weight 118.39 kg; Height jl7 5 ft. 3 in. (160.02 cm); Pain 6/10; 12:50 Pulse 83; Resp 19; Pulse Ox 95% on R/A; ld1 12:56 BP 89 / 76; Temp 98.2(TE); ld1 14:06 BP 95 / 61; Pulse 74; Resp 21; Pulse Ox 96% on R/A; ld1 15:15 BP 103 / 56; Pulse 71; Resp 19; Temp 97.9(O); Pulse Ox 96% on R/A; Pain 0/10; ld1 10:10 Body Mass Index 46.23 (118.39 kg, 160.02 cm) jl7 ED Course: 09:52 Patient arrived in ED. as 09:54 Pili Nixon FNP-C is [facility]. kb 09:54 Tom Stratton MD is Attending Physician. kb 10:17 Triage completed. jl7 10:17 Arm band placed on right wrist. Patient placed in waiting room, Patient notified of jl7 wait time. 11:29 Caity Boone, RN is Primary Nurse. iw 11:35 Chest Pa And Lat (2 Views) XRAY In Process Unspecified. EDMS 12:57 Patient has correct armband on for positive identification. Call light in reach. Side ld1 rails up X2. panel monitor on. Pulse ox on. NIBP on. Door closed. Noise minimized. Warm blanket given. 13:03 Inserted saline lock: 20 gauge in left antecubital area, using aseptic technique. Blood ld1 collected. 14:26 Deepika Nuñez MD is Hospitalizing Provider. kb 14:34 Abdomen In Process Unspecified. EDMS 19:00 No provider procedures requiring assistance completed. Patient admitted, IV remains in iw place. Administered Medications: 10:15 Drug: Ibuprofen 600 mg Route: PO; iw 12:57 Drug: NS 0.9% 1000 ml Route: IV; Rate: 1 bolus; Site: left antecubital; ld1 14:07 Follow up: Response: No adverse reaction; IV Status: Completed infusion ld1 17:31 Follow up: Response: No adverse reaction; IV Status: Completed infusion ld1 14:18 Drug: Rocephin (cefTRIAXone) 1 grams Route: IV; Rate: 1 calculated rate; Site: left ld1 antecubital; 14:18 Follow up: Response: No adverse reaction; IV Status: Completed infusion ld1 17:31 Follow up: Response: No adverse reaction; IV Status: Completed infusion ld1 Outcome: 14:27 Decision to Hospitalize by Provider. kb 21:28 Patient left the ED. bb Signatures: Dispatcher [employer] EDMS Pili Nixon FNP-C [employer]-Donna Jeffery Brenda RN RN bb Caity Boone, RN RN iw Carter Sim RN RN jl7 Yue Ordaz RN RN ld1 Corrections: (The following items were deleted from the chart) 14:27 12:56 BP 89 / 76; ld1 ld1
--- NOTE | 2021-05-24 14:28 | EDPHYS ---
Physician Documentation [facility] Name: Chay Judge Age: 70 yrs Sex: Male : 1950 Arrival Date: 05/24/2021 Time: 09:52 Bed 26 Private MD: ED Physician Tom Stratton HPI: 05/24 16:10 This 70 yrs old Male presents to ER via Ambulatory with complaints of Fever, kb Headache. 16:10 The patient reports fever, that was measured at 102 degrees Fahrenheit, with an kb emergency department temperature of 102.5 degrees Fahrenheit. Onset: The symptoms/episode began/occurred 4 day(s) ago. Modifying factors: there are no obvious modifying factors. Associated signs and symptoms: Pertinent positives: chills, decreased appetite, headache. Severity of symptoms: At their worst the symptoms were moderate in the emergency department the symptoms are unchanged. The patient has not experienced similar symptoms in the past. The patient has not recently seen a physician. Pt reports fever, chills, fatigue, headache when he has fever, decreased appetite and cough for 4 days. . Historical: - Allergies: 10:17 No Known Allergies; jl7 - PMHx: 10:17 CHF; Diabetes - NIDDM; Hypertension; Dementia; jl7 - Immunization history:: Adult Immunizations up to date, Client reports receiving the 1st dose of the Covid vaccine. - Social history:: Smoking status: Patient reports the use of cigarette tobacco products. ROS: 16:08 Abdomen/GI: Negative for abdominal pain, nausea, vomiting, diarrhea, and constipation. kb 16:08 Constitutional: Positive for chills, fatigue, fever, malaise, poor PO intake, Negative for body aches, weight loss. 16:08 Respiratory: Positive for cough, Negative for dyspnea on exertion, hemoptysis, orthopnea, pleurisy, shortness of breath, sputum production, wheezing. 16:08 Neuro: Positive for headache, Negative for altered mental status, dizziness, gait disturbance, hearing loss, loss of consciousness, numbness, seizure activity, speech changes, syncope, near syncope, tingling, tinnitus, tremor, visual changes, weakness. 16:08 All other systems are negative. Exam: 16:09 Constitutional: This is a well developed, well nourished patient who is awake, alert, kb and in no acute distress. Head/Face: Normocephalic, atraumatic. Cardiovascular: Regular rate and rhythm with a normal S1 and S2. No gallops, murmurs, or rubs. No pulse deficits. Respiratory: Respirations even and unlabored. No increased work of breathing, no retractions or nasal flaring. Abdomen/GI: Soft, non-tender. No distention Skin: Warm, dry with normal turgor. Normal color. MS/ Extremity: Pulses equal, no cyanosis. Neurovascular intact. Full, normal range of motion. Neuro: Awake and alert, GCS 15, oriented to person, place, time, and situation. Moves all extremities. Normal gait. Psych: Awake, alert, with orientation to person, place and time. Behavior, mood, and affect are within normal limits. Vital Signs: 10:10 BP 125 / 110; Pulse 84; Resp 23; Temp 102.5(O); Pulse Ox 95% ; Weight 118.39 kg; Height jl7 5 ft. 3 in. (160.02 cm); Pain 6/10; 12:50 Pulse 83; Resp 19; Pulse Ox 95% on R/A; ld1 12:56 BP 89 / 76; Temp 98.2(TE); ld1 14:06 BP 95 / 61; Pulse 74; Resp 21; Pulse Ox 96% on R/A; ld1 15:15 BP 103 / 56; Pulse 71; Resp 19; Temp 97.9(O); Pulse Ox 96% on R/A; Pain 0/10; ld1 10:10 Body Mass Index 46.23 (118.39 kg, 160.02 cm) jl7 MDM: 10:15 Patient medically screened. 16:07 Data reviewed: vital signs, nurses notes. Data interpreted: Pulse oximetry: on room air kb is 96 %. Interpretation: normal. Counseling: I had a detailed discussion with the patient and/or guardian regarding: the historical points, exam findings, and any diagnostic results supporting the discharge/admit diagnosis, lab results, radiology results, the need for further work-up and treatment in the hospital. Physician consultation: Deepika Nuñez MD was contacted at 16:08, regarding admission, to the telemetry unit. patient's condition, and will see patient in ED. 05/24 10:15 Order name: Flu 05/24 10:15 Order name: Influenza Screen (A ; Complete Time: 11:31 EDMS 05/24 11:45 Order name: SARS-COV-2 RT PCR; Complete Time: 11:50 EDMS 05/24 11:50 Order name: Amylase, Serum kb 05/24 11:50 Order name: Basic Metabolic Panel 05/24 11:50 Order name: Blood Culture Adult (2) kb 05/24 11:50 Order name: CBC with Diff; Complete Time: 13:17 kb 05/24 11:50 Order name: CPK; Complete Time: 13:17 kb 05/24 11:50 Order name: Ckmb; Complete Time: 13:17 kb 05/24 11:50 Order name: LFT's; Complete Time: 13:17 kb 05/24 11:50 Order name: Lactate; Complete Time: 14:42 kb 05/24 11:50 Order name: Lipase; Complete Time: 13:17 kb 05/24 11:50 Order name: Procalcitonin; Complete Time: 15:34 kb 05/24 10:15 Order name: Chest Pa And Lat (2 Views) XRAY; Complete Time: 11:56 kb 05/24 11:50 Order name: Protime (+inr); Complete Time: 15:03 kb 05/24 11:50 Order name: Ptt, Activated; Complete Time: 15:03 kb 05/24 11:50 Order name: Troponin (emerg Dept Use Only); Complete Time: 13:17 kb 05/24 11:51 Order name: Amylase; Complete Time: 13:17 EDMS 05/24 11:51 Order name: Basic Metabolic Panel; Complete Time: 13:17 EDMS 05/24 12:41 Order name: Urine Microscopic Only; Complete Time: 13:17 mt 05/24 12:41 Order name: Urine Culture mt 05/24 12:41 Order name: Urine Dipstick-Ancillary; Complete Time: 12:44 EDMS 05/24 13:11 Order name: Manual Differential; Complete Time: 13:17 EDMS 05/24 14:31 Order name: Abdomen ; Complete Time: 15:03 EDMS 05/24 15:35 Order name: Urinalysis EDAK 05/24 16:21 Order name: CBC with Manual Differential EDMS 05/24 16:21 Order name: Basic Metabolic Panel EDMS 05/24 16:21 Order name: Basic Metabolic Panel [facility] 05/24 11:50 Order name: Cardiac monitoring; Complete Time: 12:43 kb 05/24 11:50 Order name: EKG - Nurse/Tech; Complete Time: 12:43 kb 05/24 11:50 Order name: IV Saline Lock - Large Bore; Complete Time: 12:43 kb 05/24 11:50 Order name: Labs collected and sent; Complete Time: 12:43 kb 05/24 11:50 Order name: O2 Per Protocol; Complete Time: 12:05 kb 05/24 11:50 Order name: O2 Sat Monitoring; Complete Time: 12:05 kb 05/24 11:50 Order name: Urine Dipstick-Ancillary (obtain specimen); Complete Time: 12:43 kb 05/24 14:04 Order name: Vital Signs; Complete Time: 14:07 kb 05/24 15:49 Order name: Heart Healthy EDAK Administered Medications: 10:15 Drug: Ibuprofen 600 mg Route: PO; iw 12:57 Drug: NS 0.9% 1000 ml Route: IV; Rate: 1 bolus; Site: left antecubital; ld1 14:07 Follow up: Response: No adverse reaction; IV Status: Completed infusion ld1 17:31 Follow up: Response: No adverse reaction; IV Status: Completed infusion ld1 14:18 Drug: Rocephin (cefTRIAXone) 1 grams Route: IV; Rate: 1 calculated rate; Site: left ld1 antecubital; 14:18 Follow up: Response: No adverse reaction; IV Status: Completed infusion ld1 17:31 Follow up: Response: No adverse reaction; IV Status: Completed infusion ld1 Disposition: 05/25 06:42 Co-signature as Attending Physician, Tom Stratton MD I agree with the assessment and kdr plan of care. Disposition Summary: 05/24/21 14:27 Hospitalization Ordered Hospitalization Status: Inpatient Admission kb Provider: Deepkia Nuñez Location: Telemetry/[facility] (Inpatient) kb Condition: Stable kb Problem: new kb Symptoms: are unchanged kb Bed/Room Type: Standard kb Room Assignment: 223(05/24/21 20:11) mw Diagnosis - UTI/ Urinary tract infection, site not specified kb - Acute kidney failure, unspecified kb - Tubulo-interstitial nephritis, not specified as acute or chronic kb Forms: - Medication Reconciliation Form kb - SBAR form kb Signatures: Dispatcher [employer] EDMS Pili Nixon, OLESYA-Silvia RILEYP-Judith Cobb RN RN mw Tom Stratton MD MD kdr Williams, Irene RN RN Carter Sim RN RN jl7 Yue Ordaz RN RN ld1 Corrections: (The following items were deleted from the chart) 05/24 10:45 10:15 CORONAVIRUS+MR.LAB.BRZ ordered. EDMS EDMS 14:30 14:27 Unspecified atrial fibrillation - new onset kb kb 14:31 14:19 Abdomen Pelvis W Con+CT.RAD.BRZ ordered. EDMS EDMS 15:49 15:35 Heart Healthy ordered. EDMS EDMS 20:11 14:27 kb
[2021-05-24] MEDS ORDERED: CEFTRIAXONE/SWI 1gm 1 GM/10 ML SYR ONE (14:30)
[2021-05-24 14:55] LABS: Protime INR 1.39
--- NOTE | 2021-05-24 14:57 | RAD REPORT ---
EXAM DESCRIPTION: CT - Abdomen Pelvis Wo Contrast - 05/24/2021 2:35 pm CLINICAL HISTORY: Abdominal pain COMPARISON: March 2021 TECHNIQUE: Computed axial tomography of the abdomen and pelvis was obtained. IV and oral contrast we re not requested. All CT scans are performed using dose optimization technique as appropriate and may include automated exposure control or mA/KV adjustment according to patient size. FINDINGS: The evaluation of solid organs, vessels and bowel is limited secondary to the lack of con trast administration. Stranding surrounds the left kidney and proximal to mid left ureter. A calculus is not seen. No hydro nephrosis. Cortical thinning The liver, spleen, pancreas, adrenals and right kidney appear grossly normal. Small bilateral inguinal hernias contain fat. Spondylolysis L5. There is no evidence of diverticulitis. IMPRESSION: Stranding surrounds left kidney and proximal to mid left ureter probably indicating infl ammation.
[2021-05-24] MEDS ORDERED: ACETAMINOPHEN 500 MG TAB PO PRN (15:32)
[2021-05-24] MEDS ORDERED: ONDANSETRON 4 MG/2 ML VIAL IV PRN (15:46)
[2021-05-24] MEDS ORDERED: HYDROCODONE/APAP 5/325 MG TAB PO PRN (15:46)
--- NOTE | 2021-05-24 15:51 | P.HP ---
Certification for Inpatient With expected LOS: >2 Midnights Patient will require the following post-hospital care: None Practitioner: I am a practitioner with admitting privileges, knowledge of patient current condition, hospital course, and medical plan of care. Services: Services provided to patient in accordance with Admission requirements found in Title 42 Section 412.3 of the Code of Federal Regulations Patient History Date of Service: 05/25/21 Reason for admission: UTI History of Present Illness: Patient is a 70-year-old male with a past medical history significant for CHF, DM 2, hypertension and dementia who presents with complaint of fever, chills and nausea that has been ongoing for the past 3 days. Patient reported that he took Tylenol but fever has been recurrent. Patient reports associated signs and symptoms of diaphoresis, headache, poor appetite and dizziness. Patient denies any other signs or symptoms. Symptoms are aggravated or relieved by nothing. Patient decided to present to the hospital due to worsening symptoms. Allergies No Known Allergies Allergy (Verified 05/24/21 21:38) Home Medications: Amlodipine Besylate 10 mg PO DAILY 05/25/21 Apixaban [Eliquis] 5 mg PO BID 05/25/21 Duloxetine HCl 40 mg PO DAILY 05/25/21 Furosemide 80 mg PO BID 05/25/21 Losartan Potassium 100 mg PO DAILY 05/25/21 Nateglinide 60 mg PO TID 05/25/21 Rosuvastatin Calcium 20 mg PO BEDTIME 05/25/21 Tamsulosin HCl [Flomax] 0.4 mg PO DAILY 05/25/21 carvediloL [Carvedilol] 6.25 mg PO DAILY 05/25/21 - Past Medical/Surgical History Diabetic: Yes -: Diabetes mellitus type 2 -: CHF-unknown EF -: Atrial fibrillation on chronic anticoagulation therapy -: Obstructive sleep apnea -: none Psychosocial/ Personal History: Patient lives with his girlfriend and is retired - Family History Family History: Reviewed- Non-Contributory - Family History Father -: Heart disease, Hypertension, Diabetes Mother -: Diabetes, Other (see notes) Sister -: Diabetes - Social History Smoking Status: Current every day smoker Counseled patient to stop smoking for: less than 10 minutes Smoking therapy provided: Yes Patient receptive to therapy: Yes Alcohol use: No CD- Drugs: No Caffeine use: Yes Place of Residence: Home Review of Systems General: Fever, Chills, Malaise, Other (Diaphoresis ) Eyes: Unremarkable ENT: Unremarkable Respiratory: Unremarkable Cardiovascular: Unremarkable Gastrointestinal: Nausea Genitourinary: Unremarkable Musculoskeletal: Unremarkable Integumentary: Unremarkable Neurological: Other (Headache, dizziness ) Physical Examination - Physical Exam General: Alert, In no apparent distress, Oriented x3 HEENT: Atraumatic, PERRLA, Mucous membr. moist/pink, EOMI, Sclerae nonicteric Neck: Supple, 2+ carotid pulse no bruit, No LAD, Without JVD or thyroid abnormality Respiratory: Clear to auscultation bilaterally, Normal air movement Cardiovascular: Regular rate/rhythm, Normal S1 S2 Capillary refill: Brisk Gastrointestinal: Normal bowel sounds, Soft and benign, No tenderness Musculoskeletal: No tenderness Integumentary: No rashes Neurological: Normal gait, Normal speech, Normal strength at 5/5 x4 extr, Normal tone, Normal affect Lymphatics: No axilla or inguinal lymphadenopathy External genitalia: Deferred Rectal: Deferred - Studies Laboratory Data (last 24 hrs) 05/24/21 14:15: PT 16.0 H, INR 1.39, APTT 30.2 05/24/21 12:35: WBC 11.70 H, Hgb 13.2 L, Hct 40.9, Plt Count 182 05/24/21 12:35: Sodium 132 L, Potassium 3.4 L, BUN 40 H, Creatinine 2.32 H, Glucose 101, Total Bilirubin 0.7, AST 24, ALT 17, Alkaline Phosphatase 81, Amylase 37, Lipase 102 Microbiology Data (last 24 hrs): 05/24/21 10:15 Nasopharnyx Influenza Type A Antigen Screen - Final 05/24/21 10:15 Nasopharnyx Influenza Type B Antigen Screen - Final Assessment and Plan - Plan --UTI POA\Pyelonephritis. Pyelonephritis noted on CT imaging. Continue antibiotics. --Sepsis POA. Blood cultures pending. Continue antibiotics and IV hydration --Chronic systolic CHF. Stable. Continue supportive care. --HLD. Continue statin. --BPH. Continue Flomax. --History of CAD with stents. Continue Eliquis --AFIB. Continue Eliquis --Hypertension. Stable. Continue home medications. --CORY. Likley prerenal secondary to poor PO intake. Continue IV hydration. Will re-assess renal functions in am. --DM2. BS monitoring with sliding scale insulin. --Nicotine dependence. Patient counseled on tobacco cessation. Refuses nicotine patch. --Headache. Tylenol as needed. --DVT prophylaxis with heparin subQ Discharge Plan: Home Plan to discharge in: Greater than 2 days - Advance Directives Does patient have a Living Will: No Does patient have a Durable POA for Healthcare: No - Code Status/Comfort Care Code Status Assessed: Yes Code Status: Full Code Physician Review: Patient Assessed, Agree with Above Assessment and Plan
[2021-05-24] MEDS: NA CHLORIDE 0.9% 1,000 ML IV SCH ×2 (16:00→21:54)
[2021-05-24] MEDS ORDERED: NA CHLORIDE 0.9% 1,000 ML IV ONE (18:35)
[2021-05-24] MEDS ORDERED: VANCOMYCIN/NS 1 gm 1 GM/250 ML BAG IVPB SCH (20:00)
[2021-05-24] MEDS ORDERED: NA CHLORIDE 0.9% 250 ML ONE (20:34)
[2021-05-24] MEDS ORDERED: VANCOMYCIN 1 GM/VIAL ONE (20:34)
[2021-05-24] MEDS ORDERED: HYDROCODONE/APAP 5/325 MG TAB ONE (20:47)
[2021-05-24] MEDS ORDERED: CEFEPIME 1 GM/VIAL IV SCH (21:00)
[2021-05-24 21:39] VITALS: BMI 44.7
[2021-05-24] MEDS: HEPARIN 5000 UNIT/ML 1 ML VIAL SQ SCH (21:54)
[2021-05-24] MEDS: CEFEPIME/SWI 1gm 10 ML IVP SCH (21:55)
[2021-05-25] MEDS ORDERED: GLUCAGON 1 MG/VIAL IM PRN (02:13)
[2021-05-25] MEDS ORDERED: D50W 25 GM/50 ML SYRINGE IV PRN (02:13)
[2021-05-25 04:13] LABS: Absolute Lymphocytes (CBC) 1.2 K/uL (0.7-4.9); Basophils % 0.2 % (0-1.3); Hematocrit 37.3 % (39.6-49.0); Lymphocytes % 11.8 % (15.3-44.8); MPV 8.8 fL (7.6-11.3); RBC Red Blood Cell Count 4.65 M/uL (4.33-5.43)
[2021-05-25 04:52] LABS: Potassium 3.7 mmol/L (3.5-5.1)
[2021-05-25 05:11] LABS: Blood Morphology Comment NOT SEEN (NOT SEEN); Platelet Estimate ADEQ
[2021-05-25] MEDS: NA CHLORIDE 0.9% 1,000 ML IV SCH ×3 (07:21→17:40)
[2021-05-25] MEDS: INSULIN -REGULAR HUMAN 50 UNIT/0.5 ML ML SQ SCH ×4 (07:30→21:00)
[2021-05-25] MEDS ORDERED: POTASSIUM CL SA 10 MEQ TAB PO ONE (09:00)
[2021-05-25] MEDS: HEPARIN 5000 UNIT/ML 1 ML VIAL SQ SCH ×2 (10:04→21:00)
[2021-05-25] MEDS: CEFEPIME/SWI 1gm 10 ML IVP SCH ×2 (10:05→21:44)
--- NOTE | 2021-05-25 16:01 | P.PN ---
Subjective Date of Service: 05/25/21 Chief Complaint: UTI Patient complaining of headache, fever, chills and rigors. Blood cultures growing Gram negative rods. Physical Examination - Vital Signs Temperature: 98.5 F Blood Pressure: 123/57 Pulse: 104 Respirations: 18 Pulse Ox (%): 96 - Physical Exam General: Alert, In no apparent distress HEENT: Mucous membr. moist/pink Neck: JVD not distended Respiratory: Clear to auscultation bilaterally, Normal air movement Cardiovascular: No edema, Regular rate/rhythm, Normal S1 S2 Gastrointestinal: Soft and benign, Non-distended, No tenderness Musculoskeletal: No swelling, No erythema Integumentary: No rashes, No erythema Neurological: Normal strength at 5/5 x4 extr, Cranial nerves 3-12 intact - Studies Microbiology Data (last 24 hrs): 05/24/21 12:30 Blood - Blood Blood Culture Gram Stain - Final 05/24/21 12:30 Blood - Blood Gram Stain - Final 05/24/21 12:35 Blood - Blood Blood Culture Gram Stain - Final 05/24/21 10:15 Nasopharnyx Influenza Type A Antigen Screen - Final 05/24/21 10:15 Nasopharnyx Influenza Type B Antigen Screen - Final Assessment And Plan - Current Problems (Diagnosis) (1) Gram-negative bacteremia Current Visit: Yes Status: Acute (2) UTI (urinary tract infection) Current Visit: Yes Status: Acute (3) Diabetes mellitus type 2 in obese Current Visit: Yes Status: Acute - Plan Continue IV cefepime and vanco Discontinue vancomycin once blood cultures are negative for GPC for 48 hrs. Follow blood cultures for organism identification and antibiotic sensitivity. Repeat blood culture to document bacteremia clearance. Insulin sliding scale for glucose management. Hold home antihypertensives given that patient is normotensive in the context of sepsis.
[2021-05-25] MEDS ORDERED: NA CHLORIDE IVPB SCH (21:00)
[2021-05-25] MEDS ORDERED: VANCOMYCIN/NS 1 gm 2 GM/500 ML BAG IVPB SCH (21:00)
[2021-05-25] MEDS ORDERED: HOME MED 1 EA UNK (Rosuvastatin Calcium [Rosuvastatin Calcium] 20 MG Tablet) PO SCH (21:00)
[2021-05-25] MEDS ORDERED: VANCOMYCIN IVPB SCH (21:00)
[2021-05-25] MEDS: APIXABAN 5 MG TABLET PO SCH (21:45)
[2021-05-25] MEDS: ROSUVASTATIN 10 MG TAB PO SCH (21:45)
[2021-05-26 06:08] LABS: Absolute Lymphocytes (CBC) 0.9 K/uL (0.7-4.9); Basophils % 0.2 % (0-1.3); Hematocrit 35.7 % (39.6-49.0); Lymphocytes % 14.8 % (15.3-44.8); MPV 8.5 fL (7.6-11.3)
[2021-05-26 06:17] LABS: Potassium 3.5 mmol/L (3.5-5.1)
[2021-05-26] MEDS: NA CHLORIDE 0.9% 1,000 ML IV SCH (06:43)
[2021-05-26] MEDS: INSULIN -REGULAR HUMAN 50 UNIT/0.5 ML ML SQ SCH ×4 (07:30→21:00)
[2021-05-26] MEDS ORDERED: POTASSIUM 25 MEQ EFFERV TAB PO ONE (08:05)
[2021-05-26] MEDS: TAMSULOSIN 0.4 MG SR CAP PO SCH (09:03)
[2021-05-26] MEDS: DULOXETINE 20 MG CAP PO SCH (09:03)
[2021-05-26] MEDS: APIXABAN 5 MG TABLET PO SCH ×2 (09:04→22:01)
[2021-05-26] MEDS: CEFEPIME/SWI 1gm 10 ML IVP SCH (09:05)
[2021-05-26] MEDS: Meropenem 1 GM/100 ML BAG IV SCH ×2 (14:21→22:01)
--- NOTE | 2021-05-26 14:37 | P.PN ---
Subjective Date of Service: 05/26/21 Chief Complaint: UTI Patient states he feels much better today. Blood cultures growing Gram negative rods. Urine culture: ESBL E. coli Physical Examination - Vital Signs Temperature: 97.8 F Blood Pressure: 148/67 Pulse: 69 Respirations: 18 Pulse Ox (%): 95 - Physical Exam General: Alert, In no apparent distress, Oriented x3, Obese Neck: JVD not distended Respiratory: Clear to auscultation bilaterally, Normal air movement Cardiovascular: No edema, Regular rate/rhythm, Normal S1 S2 Capillary refill: <2 Seconds Gastrointestinal: Normal bowel sounds, Soft and benign, Non-distended, No tenderness Musculoskeletal: No swelling Integumentary: Other (Bilateral lower extremity venostasis dermatitis) Neurological: Normal strength at 5/5 x4 extr - Studies Microbiology Data (last 24 hrs): 05/24/21 12:35 Clean Catch Urine [place] Count - Final BETWEEN 10,000 & 100,000 CFU/ML 05/24/21 12:35 Clean Catch Urine - Final Escherichia Coli Esbl Gram Neg Arley Escherichia Coli 05/24/21 12:30 Blood - Blood Blood Culture Gram Stain - Final 05/24/21 12:30 Blood - Blood Gram Stain - Final 05/24/21 12:35 Blood - Blood Blood Culture Gram Stain - Final Assessment And Plan - Current Problems (Diagnosis) (1) Gram-negative bacteremia Current Visit: Yes Status: Acute (2) UTI (urinary tract infection) Current Visit: Yes Status: Acute (3) Diabetes mellitus type 2 in obese Current Visit: Yes Status: Acute (4) Morbid obesity Current Visit: Yes Status: Acute - Plan Antibiotics changed to IV meropenem given ESBL E. coli UTI. Infectious disease consulted Discontinue vancomycin. Follow blood cultures for organism identification and antibiotic sensitivity. Repeat blood culture to document bacteremia clearance is pending. Insulin sliding scale for glucose management. Resume home antihypertensives. PICC line for outpatient IV antibiotics. Physician Review: Patient Assessed, Agree with Above Assessment and Plan
[2021-05-26] MEDS: carvediloL 6.25 MG TAB PO SCH (17:29)
[2021-05-26] MEDS: ROSUVASTATIN 10 MG TAB PO SCH (22:01)
[2021-05-27] MEDS: INSULIN -REGULAR HUMAN 50 UNIT/0.5 ML ML SQ SCH ×4 (07:30→20:42)
[2021-05-27] MEDS: DULOXETINE 20 MG CAP PO SCH (08:45)
[2021-05-27] MEDS: carvediloL 6.25 MG TAB PO SCH (08:45)
[2021-05-27] MEDS: LOSARTAN POTASSIUM 50 MG TABLET PO SCH (08:46)
[2021-05-27] MEDS: AMLODIPINE 10 MG TAB PO SCH (08:46)
[2021-05-27] MEDS: Meropenem 1 GM/100 ML BAG IV SCH ×2 (08:46→20:36)
[2021-05-27] MEDS: APIXABAN 5 MG TABLET PO SCH ×2 (08:46→20:37)
[2021-05-27] MEDS: TAMSULOSIN 0.4 MG SR CAP PO SCH (08:46)
[2021-05-27 10:27] LABS: Potassium 4.1 mmol/L (3.5-5.1)
--- NOTE | 2021-05-27 14:50 | P.PN ---
Subjective Date of Service: 05/27/21 Chief Complaint: UTI Patient denies any complain today Blood cultures growing ESBL E. coli. Urine culture: ESBL E. coli Physical Examination - Vital Signs Temperature: 97.9 F Blood Pressure: 133/62 Pulse: 78 Respirations: 18 Pulse Ox (%): 95 - Physical Exam General: In no apparent distress, Oriented x3 HEENT: Mucous membr. moist/pink Neck: JVD not distended Respiratory: Clear to auscultation bilaterally, Normal air movement Cardiovascular: No edema, Regular rate/rhythm, Normal S1 S2 Gastrointestinal: Soft and benign, Non-distended, No tenderness Musculoskeletal: No swelling Integumentary: No rashes Neurological: Normal strength at 5/5 x4 extr - Studies Microbiology Data (last 24 hrs): 05/24/21 12:30 Blood - Blood Aerobic Blood Culture - Final Gram Neg Arley Escherichia Coli Esbl 05/24/21 12:30 Blood - Blood Blood Culture Gram Stain - Final 05/24/21 12:30 Blood - Blood Anaerobic Blood Culture - Final Escherichia Coli Esbl 05/24/21 12:30 Blood - Blood Gram Stain - Final 05/24/21 12:35 Blood - Blood Aerobic Blood Culture - Final Gram Neg Arley Escherichia Coli Esbl 05/24/21 12:35 Blood - Blood Blood Culture Gram Stain - Final Assessment And Plan - Current Problems (Diagnosis) (1) UTI due to extended-spectrum beta lactamase (ESBL) producing Escherichia coli Current Visit: Yes Status: Acute (2) E coli bacteremia Current Visit: Yes Status: Acute (3) Diabetes mellitus type 2 in obese Current Visit: Yes Status: Acute (4) Morbid obesity Current Visit: Yes Status: Acute - Plan Continue IV meropenem. Infectious disease consulted Repeat blood culture: No growth to date Follow blood cultures Insulin sliding scale for glucose management. Continue home antihypertensives. PICC line for outpatient IV antibiotics requested.
[2021-05-27] MEDS: ROSUVASTATIN 10 MG TAB PO SCH (20:37)
[2021-05-28] MEDS: INSULIN -REGULAR HUMAN 50 UNIT/0.5 ML ML SQ SCH ×4 (07:30→20:27)
[2021-05-28] MEDS: Meropenem 1 GM/100 ML BAG IV SCH ×2 (08:22→20:26)
[2021-05-28] MEDS: carvediloL 6.25 MG TAB PO SCH (08:22)
[2021-05-28] MEDS: AMLODIPINE 10 MG TAB PO SCH (08:22)
[2021-05-28] MEDS: TAMSULOSIN 0.4 MG SR CAP PO SCH (08:22)
[2021-05-28] MEDS: LOSARTAN POTASSIUM 50 MG TABLET PO SCH (08:22)
[2021-05-28] MEDS: DULOXETINE 20 MG CAP PO SCH (08:23)
[2021-05-28] MEDS: APIXABAN 5 MG TABLET PO SCH ×2 (08:23→20:27)
--- NOTE | 2021-05-28 15:30 | P.PN ---
Subjective Date of Service: 05/28/21 Chief Complaint: UTI Patient has no complain today. Awaiting PICC line placement. Physical Examination - Vital Signs Temperature: 97.4 F Blood Pressure: 124/66 Pulse: 83 Respirations: 17 Pulse Ox (%): 93 - Physical Exam General: Alert, In no apparent distress, Oriented x3, Obese HEENT: Mucous membr. moist/pink Neck: JVD not distended Respiratory: Clear to auscultation bilaterally, Normal air movement Cardiovascular: No edema, Regular rate/rhythm, Normal S1 S2 Gastrointestinal: Soft and benign, Non-distended Musculoskeletal: No swelling Neurological: Normal strength at 5/5 x4 extr Assessment And Plan - Current Problems (Diagnosis) (1) UTI due to extended-spectrum beta lactamase (ESBL) producing Escherichia coli Current Visit: Yes Status: Acute (2) E coli bacteremia Current Visit: Yes Status: Acute (3) Diabetes mellitus type 2 in obese Current Visit: Yes Status: Acute (4) Morbid obesity Current Visit: Yes Status: Acute - Plan Continue IV meropenem. Infectious disease consulted. Patient to receive at least 2 weeks of IV antibiotics. Repeat blood culture: No growth to date Insulin sliding scale for glucose management. Continue home antihypertensives. PICC line for outpatient IV antibiotics requested.
[2021-05-28] MEDS: ROSUVASTATIN 10 MG TAB PO SCH (20:27)
[2021-05-29 04:13] LABS: Absolute Lymphocytes (CBC) 1.5 K/uL (0.7-4.9); Basophils % 0.4 % (0-1.3); Hematocrit 35.2 % (39.6-49.0); Lymphocytes % 17.9 % (15.3-44.8); MPV 8.1 fL (7.6-11.3)
[2021-05-29 04:23] LABS: Potassium 4.2 mmol/L (3.5-5.1)
[2021-05-29] MEDS: INSULIN -REGULAR HUMAN 50 UNIT/0.5 ML ML SQ SCH ×4 (07:30→20:32)
[2021-05-29] MEDS: APIXABAN 5 MG TABLET PO SCH ×2 (07:59→20:31)
[2021-05-29] MEDS: LOSARTAN POTASSIUM 50 MG TABLET PO SCH (07:59)
[2021-05-29] MEDS: Meropenem 1 GM/100 ML BAG IV SCH ×2 (07:59→20:26)
[2021-05-29] MEDS: TAMSULOSIN 0.4 MG SR CAP PO SCH (07:59)
[2021-05-29] MEDS: DULOXETINE 20 MG CAP PO SCH (07:59)
[2021-05-29] MEDS: AMLODIPINE 10 MG TAB PO SCH (07:59)
[2021-05-29] MEDS: carvediloL 6.25 MG TAB PO SCH (08:00)
[2021-05-29] MEDS ORDERED: SODIUM CHLORIDE 0.9% 10ML INJ IV PRN ×2 (08:00)
[2021-05-29] MEDS: SODIUM CHLORIDE 0.9% 10ML INJ IV SCH ×2 (08:02→21:00)
--- NOTE | 2021-05-29 10:10 | RAD REPORT ---
EXAM DESCRIPTION: RAD - Chest Single View - 05/29/2021 1:26 am CLINICAL HISTORY: The patient is 70 years old and is Male; PICC placement right arm TECHNIQUE: Frontal view of the chest. COMPARISON: No relevant prior studies available. FINDINGS: Lungs: Diffuse interstitial thickening which may represent interstitial edema or pneumon ia. Pleural space: Unremarkable. No pneumothorax. Heart: Unremarkable. Mediastinum: Unremarkable. Bones/joints: Unremarkable. Tubes, lines and devices: Right PICC with tip in the SVC. IMPRESSION: Diffuse interstitial thickening which may represent interstitial edema or pneumonia. Rig ht PICC with tip in the SVC. Electronically signed by: Margarito Nuñez MD 05/29/2021 2:26 AM CDT Due to temporary technical issues with the PACS/Fluency reporting system, reports are being signed by the in house radiologist without review as a courtesy to ensure prompt reporting. The interpreting r adiologist is fully responsible for the content of the report.
--- NOTE | 2021-05-29 10:33 | P.CNS ---
Date of Consult: 05/29/21 Chief Complaint: UTI History of Present Illness: Patient is a 62-year-old male with a past medical history of congestive heart failure, diabetes, hypertension, who has been complaining of fever, chills, nausea, and weakness that has been going on for the past 3 days prior to admission to the hospital. Patient states that he took Tylenol however his symptoms did not subside. Patient reports previous ER visit of the month ago 222 testicular pain, he states he was given an oral antibiotic and sent home. Urine culture performed on 05/24 grew E coli ESBL. Blood culture performed on 05/24 also grew E coli ESBL. Repeat cultures taken on 05/25 show no growth to date. Patient empirically started on meropenem, PICC line placed. Patient currently denies nausea, vomiting, shortness breath. Allergies No Known Allergies Allergy (Verified 05/24/21 21:38) Home Medications: Amlodipine Besylate 10 mg PO DAILY 05/25/21 Apixaban [Eliquis] 5 mg PO BID 05/25/21 Duloxetine HCl 40 mg PO DAILY 05/25/21 Furosemide 80 mg PO BID 05/25/21 Losartan Potassium 100 mg PO DAILY 05/25/21 Nateglinide 60 mg PO TID 05/25/21 Rosuvastatin Calcium 20 mg PO BEDTIME 05/25/21 Tamsulosin HCl [Flomax] 0.4 mg PO DAILY 05/25/21 carvediloL [Carvedilol] 6.25 mg PO DAILY 05/25/21 - Past Medical/Surgical History Diabetic: Yes -: Diabetes mellitus type 2 -: CHF-unknown EF -: Atrial fibrillation on chronic anticoagulation therapy -: Obstructive sleep apnea -: none Psychosocial/ Personal History: Patient lives with his girlfriend and is retired - Family History Father Medical History: Heart disease, Hypertension, Diabetes Mother Medical History: Diabetes, Other (see notes) Sister Medical History: Diabetes - Social History Smoking Status: Current every day smoker Alcohol use: No CD- Drugs: No Caffeine use: Yes Place of Residence: Home Review of Systems 10-point ROS is otherwise unremarkable Physical Examination Temp Pulse Resp BP Pulse Ox 97.4 F 73 18 129/57 L 96 05/29/21 08:00 05/29/21 08:00 05/29/21 08:00 05/29/21 08:00 05/29/21 08:00 General: Alert, In no apparent distress, Obese HEENT: Atraumatic, Normocephalic Neck: Supple Respiratory: Clear to auscultation bilaterally, Normal air movement Cardiovascular: Normal pulses, Regular rate/rhythm Gastrointestinal: Normal bowel sounds, Hypoactive Musculoskeletal: No clubbing, No swelling Laboratory Last Values WBC 11.70 K/uL (4.3-10.9) H 05/24/21 12:35 RBC 5.03 M/uL (4.33-5.43) 05/24/21 12:35 Hgb 13.2 g/dL (13.6-17.9) L 05/24/21 12:35 Hct 40.9 % (39.6-49.0) 05/24/21 12:35 MCV 81.3 fL (80-100) 05/24/21 12:35 MCH 26.3 pg (27.0-35.0) L 05/24/21 12:35 MCHC 32.3 g/dL (32.0-36.0) 05/24/21 12:35 RDW 16.8 % (12.1-15.2) H 05/24/21 12:35 Plt Count 182 K/uL (152-406) 05/24/21 12:35 MPV 8.8 fL (7.6-11.3) 05/24/21 12:35 Neutrophils % 86.1 % (41.7-73.7) H 05/24/21 12:35 Lymphocytes % 6.1 % (15.3-44.8) L 05/24/21 12:35 Monocytes % 7.5 % (3.3-12.3) 05/24/21 12:35 Eosinophils % 0.0 % (0-4.4) 05/24/21 12:35 Basophils % 0.3 % (0-1.3) 05/24/21 12:35 Absolute Neutrophils 10.1 K/uL (1.8-8.0) H 05/24/21 12:35 Segmented Neutrophils 85 % (40-80) H 05/24/21 12:35 Absolute Lymphocytes 0.7 K/uL (0.7-4.9) 05/24/21 12:35 Lymphocytes 4 % (15-42) L 05/24/21 12:35 Monocytes 11 % (0-10) H 05/24/21 12:35 Absolute Monocytes 0.9 K/uL (0.1-1.3) 05/24/21 12:35 Absolute Eosinophils 0.0 K/uL (0-0.5) 05/24/21 12:35 Absolute Basophils 0.0 K/uL (0-0.5) 05/24/21 12:35 Platelet Estimate Adeq 05/24/21 12:35 Morphology Comment Not seen (NOT SEEN) 05/24/21 12:35 PT 16.0 SECONDS (9.5-12.5) H 05/24/21 14:15 INR 1.39 05/24/21 14:15 APTT 30.2 SECONDS (24.3-36.9) 05/24/21 14:15 Sodium 132 mmol/L (136-145) L 05/24/21 12:35 Potassium 3.4 mmol/L (3.5-5.1) L 05/24/21 12:35 Chloride 96 mmol/L (98-107) L 05/24/21 12:35 Carbon Dioxide 25 mmol/L (21-32) 05/24/21 12:35 BUN 40 mg/dL (7-18) H 05/24/21 12:35 Creatinine 2.32 mg/dL (0.55-1.3) H 05/24/21 12:35 Estimated GFR 28 mL/min (=/>90) L 05/24/21 12:35 Glucose 101 mg/dL (74-106) 05/24/21 12:35 Lactic Acid 1.1 mmol/L (0.4-2.0) 05/24/21 14:15 Calcium 8.1 mg/dL (8.5-10.1) L 05/24/21 12:35 Total Bilirubin 0.7 mg/dL (0.2-1.0) 05/24/21 12:35 Direct Bilirubin 0.3 mg/dL (0-0.2) H 05/24/21 12:35 AST 24 U/L (15-37) 05/24/21 12:35 ALT 17 U/L (12-78) 05/24/21 12:35 Alkaline Phosphatase 81 U/L (45-117) 05/24/21 12:35 Creatine Kinase 198 U/L (39-308) 05/24/21 12:35 CK-MB (CK-2) 1.2 ng/mL (1.0-3.6) 05/24/21 12:35 Rapid Troponin I 0.02 ng/mL (0.0-0.045) 05/24/21 12:35 Serum Total Protein 7.7 g/dL (6.4-8.2) 05/24/21 12:35 Albumin 2.4 g/dL (3.4-5.0) L 05/24/21 12:35 Globulin 5.3 g/dL (2.3-3.5) H 05/24/21 12:35 Albumin/Globulin Ratio 0.5 (1.1-1.8) L 05/24/21 12:35 Amylase 37 U/L (25-115) 05/24/21 12:35 Lipase 102 U/L (73-393) 05/24/21 12:35 Procalcitonin 14.50 ng/mL (<0.050) H 05/24/21 14:15 Urine Color Cancelled 05/24/21 15:32 Urine Appearance Cancelled 05/24/21 15:32 Urine pH Cancelled 05/24/21 15:32 Ur Specific [place] Cancelled 05/24/21 15:32 Glucose (UA)(Auto) Cancelled 05/24/21 15:32 Urine Ketones Cancelled 05/24/21 15:32 Urine Blood Cancelled 05/24/21 15:32 Urine Nitrite Cancelled 05/24/21 15:32 Urine Bilirubin Cancelled 05/24/21 15:32 Urine Urobilinogen Cancelled 05/24/21 15:32 Ur Leukocyte Esterase Cancelled 05/24/21 15:32 Urine RBC >50 /HPF (NONE SEEN) H 05/24/21 12:35 Urine WBC Loaded /HPF (<5) H 05/24/21 12:35 Ur Squamous Epith Cells <5 /HPF (NONE SEEN) 05/24/21 12:35 Urine Bacteria Loaded /HPF (NONE SEEN) H 05/24/21 12:35 RBC Casts 0-5 /LPF (NONE SEEN) 05/24/21 12:35 Urine Culture Reflexed Not needed 05/24/21 12:35 Urine Total Protein Cancelled 05/24/21 15:32 SARS-CoV-2 RNA (RT-PCR) Negative (NEGATIVE) 05/24/21 10:19 Conclusions/Impression: Assessment -urosepsis due to ESBL E coli -diabetes mellitus type 2. -anemia -protein caloric malnutrition -congestive heart failure Plan -blood in urine cultures performed on 05/24 grew ESBL E coli. Repeat cultures performed on 05/25 showed no growth. Patient placed on meropenem, continue IV antibiotic therapy for total of 7 days. Due to gram-negative bacteremia patient only need 1 week course of IV antibiotics. Patient started on probiotic, recommend continuing probiotic for duration of antibiotic therapy. -medical management per primary team -plan of care discussed with Dr. Sarmiento Thank you for consultation
--- NOTE | 2021-05-29 16:02 | P.PN ---
Subjective Date of Service: 05/29/21 Chief Complaint: UTI Patient has no complain today. PICC line placement last night. Physical Examination - Vital Signs Temperature: 98.0 F Blood Pressure: 125/56 Pulse: 59 Respirations: 16 Pulse Ox (%): 93 - Physical Exam General: Alert, In no apparent distress, Oriented x3 HEENT: Mucous membr. moist/pink Neck: JVD not distended Respiratory: Clear to auscultation bilaterally, Normal air movement Cardiovascular: No edema, Regular rate/rhythm, Normal S1 S2 Gastrointestinal: Normal bowel sounds, Soft and benign, Non-distended Musculoskeletal: No swelling Integumentary: Other (Bilateral lower extremity hemosiderin stain.) Neurological: Normal strength at 5/5 x4 extr - Studies Microbiology Data (last 24 hrs): 05/24/21 12:35 Blood - Blood Aerobic Blood Culture - Final Gram Neg Arley Escherichia Coli Esbl 05/24/21 12:35 Blood - Blood Blood Culture Gram Stain - Final 05/24/21 12:35 Blood - Blood Anaerobic Blood Culture - Final No growth in 5 days. Assessment And Plan - Current Problems (Diagnosis) (1) UTI due to extended-spectrum beta lactamase (ESBL) producing Escherichia coli Current Visit: Yes Status: Acute (2) E coli bacteremia Current Visit: Yes Status: Acute (3) Diabetes mellitus type 2 in obese Current Visit: Yes Status: Acute (4) Morbid obesity Current Visit: Yes Status: Acute - Plan Continue IV meropenem. Infectious disease input appreciated. Duration of IV antibiotics per infectious disease. Repeat blood culture: No growth to date Insulin sliding scale for glucose management. Continue home antihypertensives. PICC line in for outpatient IV antibiotic.
[2021-05-29] MEDS: ROSUVASTATIN 10 MG TAB PO SCH (20:27)
[2021-05-29] MEDS: LACTOBACILLUS/ACIDOPHILUS TAB PO SCH (20:27)
[2021-05-30] MEDS: INSULIN -REGULAR HUMAN 50 UNIT/0.5 ML ML SQ SCH ×2 (07:30→11:30)
[2021-05-30] MEDS: SODIUM CHLORIDE 0.9% 10ML INJ IV SCH (09:00)
[2021-05-30] MEDS: Meropenem 1 GM/100 ML BAG IV SCH (09:09)
[2021-05-30] MEDS: LACTOBACILLUS/ACIDOPHILUS TAB PO SCH (09:09)
[2021-05-30] MEDS: TAMSULOSIN 0.4 MG SR CAP PO SCH (09:09)
[2021-05-30] MEDS: AMLODIPINE 10 MG TAB PO SCH (09:10)
[2021-05-30] MEDS: APIXABAN 5 MG TABLET PO SCH (09:10)
[2021-05-30] MEDS: carvediloL 6.25 MG TAB PO SCH (09:10)
[2021-05-30] MEDS: LOSARTAN POTASSIUM 50 MG TABLET PO SCH (09:10)
[2021-05-30] MEDS: DULOXETINE 20 MG CAP PO SCH (09:10)
[2021-05-30 09:34] VITALS: O2SAT 98
--- NOTE | 2021-05-30 11:00 | P.PN ---
Subjective Date of Service: 05/30/21 Chief Complaint: UTI Patient seen examined at bedside, doing well no acute complaints. Review of Systems 10-point ROS is otherwise unremarkable Physical Examination - Vital Signs Temperature: 98 F Blood Pressure: 117/58 Pulse: 62 Respirations: 18 Pulse Ox (%): 94 - Studies Microbiology Data (last 24 hrs): 05/24/21 12:35 Blood - Blood Aerobic Blood Culture - Final Gram Neg Arley Escherichia Coli Esbl 05/24/21 12:35 Blood - Blood Blood Culture Gram Stain - Final 05/24/21 12:35 Blood - Blood Anaerobic Blood Culture - Final No growth in 5 days. Assessment And Plan - Plan Physical Exam: General: Alert, In no apparent distress, Obese HEENT: Atraumatic, Normocephalic Neck: Supple Respiratory: Clear to auscultation bilaterally, Normal air movement Cardiovascular: Normal pulses, Regular rate/rhythm Gastrointestinal: Normal bowel sounds, Hypoactive Musculoskeletal: No clubbing, No swelling Conclusions/Impression: Assessment -urosepsis due to ESBL E coli -diabetes mellitus type 2. -anemia -protein caloric malnutrition -congestive heart failure Plan -blood in urine cultures performed on 05/24 grew ESBL E coli. Repeat cultures performed on 05/25 showed no growth. Patient placed on meropenem, continue IV antibiotic therapy for total of 7 days. Due to gram-negative bacteremia patient only need 1 week course of IV antibiotics. Patient started on probiotic, recommend continuing probiotic for duration of antibiotic therapy. -medical management per primary team -plan of care discussed with Dr. Sarmiento Thank you for consultation Physician Review: Patient Assessed, Agree with Above Assessment and Plan
[2021-05-30 12:11] VITALS: BP 140/71; TEMP 97.8
--- NOTE | 2021-05-30 14:39 | P.DS ---
Admission Date: 05/24/21 Discharge Date: 05/30/21 Disposition: [place] [facility] Discharge Condition: GOOD Reason for Admission: UTI Procedures: CXR (05/24): FINDINGS: The lungs are clear of mass or consolidation. No failure or volume overload. Interstitial markings are increased in the lower lung momin suspected to be baseline. Heart size is normal and central vasculature is within normal limits. No pleural effusion or pneumothorax seen. Thoracic spine degenerative changes are present. There is bridging ossification spanning numerous levels of the thoracic spine. This is probably diffuse idiopathic skeletal hyperostosis (DISH), not of acute significance. Patient has prominent degenerative change at the right AC joint. No aortic abnormality. IMPRESSION: No acute cardiopulmonary process. CT abdomen/pelvis (05/24): FINDINGS: The evaluation of solid organs, vessels and bowel is limited secondary to the lack of contrast administration. Stranding surrounds the left kidney and proximal to mid left ureter. A calculus is not seen. No hydronephrosis. Cortical thinning The liver, spleen, pancreas, adrenals and right kidney appear grossly normal. Small bilateral inguinal hernias contain fat. Spondylolysis L5. There is no evidence of diverticulitis. IMPRESSION: Stranding surrounds left kidney and proximal to mid left ureter probably indicating inflammation. CXR (05/29): Diffuse interstitial thickening which may represent interstitial edema or pneumonia. Right PICC with tip in the SVC. Problem list Acute pyelonephritis secondary to ESBL E. coli with bacteremia Diabetes mellitus type 2 Morbid obesity Chronic CHF, unknown EF Chronic atrial fibrillation on chronic anticoagulation therapy Hypertension Hyperlipidemia Brief History of Present Illness: 70-year-old male with a past medical history significant for CHF, DM 2, hypertension and dementia who presents with complaint of fever, chills and nausea that has been ongoing for the past 3 days. Patient reported that he took Tylenol but fever has been recurrent. Patient reports associated signs and symptoms of diaphoresis, headache, poor appetite and dizziness. Patient denies any other signs or symptoms. Symptoms are aggravated or relieved by nothing. Patient decided to present to the hospital due to worsening symptoms Hospital Course: Patient was empirically treated with IV antibiotics. Urine and blood culture grew ESBL E. coli. Infectious disease was consulted and patient was treated with IV meropenem. A PICC line was placed and he is discharged to complete 7 days of antibiotics with IV Invanz. His lasix was initially held on admission, but restarted on day of discharge. Follow-up with PCP in 3-5 days. Vital Signs/Physical Exam: Temp Pulse Resp BP Pulse Ox 97.8 F 80 18 140/71 97 05/30/21 12:00 05/30/21 12:00 05/30/21 12:00 05/30/21 12:00 05/30/21 12:00 General: Alert, In no apparent distress, Oriented x3 HEENT: Sclerae nonicteric Neck: Supple Respiratory: Clear to auscultation bilaterally, Diminished Cardiovascular: Regular rate/rhythm, Edema (trace b/l lower extremities) Gastrointestinal: Soft and benign, Non-distended, No tenderness Musculoskeletal: No erythema, No tenderness Integumentary: No rashes, No significant lesion Neurological: Normal speech, Normal affect Laboratory Data at Discharge: WBC 8.50 K/uL (4.3-10.9) D 05/29/21 03:55 Hgb 11.6 g/dL (13.6-17.9) L 05/29/21 03:55 Hct 35.2 % (39.6-49.0) L 05/29/21 03:55 Plt Count 257 K/uL (152-406) D 05/29/21 03:55 PT 16.0 SECONDS (9.5-12.5) H 05/24/21 14:15 INR 1.39 05/24/21 14:15 APTT 30.2 SECONDS (24.3-36.9) 05/24/21 14:15 Sodium 140 mmol/L (136-145) 05/29/21 03:55 Potassium 4.2 mmol/L (3.5-5.1) 05/29/21 03:55 BUN 17 mg/dL (7-18) 05/29/21 03:55 Creatinine 0.92 mg/dL (0.55-1.3) 05/29/21 03:55 Glucose 92 mg/dL (74-106) 05/29/21 03:55 Magnesium 2.3 mg/dL (1.8-2.4) 05/25/21 03:46 Total Bilirubin 0.7 mg/dL (0.2-1.0) 05/24/21 12:35 AST 24 U/L (15-37) 05/24/21 12:35 ALT 17 U/L (12-78) 05/24/21 12:35 Alkaline Phosphatase 81 U/L (45-117) 05/24/21 12:35 Amylase 37 U/L (25-115) 05/24/21 12:35 Lipase 102 U/L (73-393) 05/24/21 12:35 Home Medications: Amlodipine Besylate 10 mg PO DAILY 05/25/21 Apixaban [Eliquis] 5 mg PO BID 05/25/21 Duloxetine HCl 40 mg PO DAILY 05/25/21 Furosemide 80 mg PO BID 05/25/21 Losartan Potassium 100 mg PO DAILY 05/25/21 Nateglinide 60 mg PO TID 05/25/21 Rosuvastatin Calcium 20 mg PO BEDTIME 05/25/21 Tamsulosin HCl [Flomax] 0.4 mg PO DAILY 05/25/21 carvediloL [Carvedilol] 6.25 mg PO DAILY 05/25/21 Acidophilus/Bulgaricus [Lactinex Tablet Chewable] 1 each PO BID 7 Days #14 tab.chew 05/30/21 New Medications: Acidophilus/Bulgaricus [Lactinex Tablet Chewable] 1 each PO BID 7 Days #14 tab.chew Physician Discharge Instructions: You were found to have a urinary tract infection due to a resistant bacteria. This requires treatment with IV antibiotics. You are discharged to complete a total of 7 days of IV antibiotics. Please follow up with your PCP in 3-5 days. Recommend taking a probiotic while taking antibiotics. Diet: ADA Activity: Ad joan Followup: Pat Washington MD [Primary Care Provider] - (call to schedule appointment) Time spent managing pt's care (in minutes): 40
== END 2021-05-30 12:47 | disposition home health service (06) | DRG 872 ==
LOC: ER 09:49 → ERHOLD 16:06 → 2ND 20:57
PROVIDERS: ADMIT Internal Medicine; ATTEND Hospitalist
PROC: 5A09557 Assistance with Respiratory Ventilation, Greater than 96 Consecutive Hours, Continuous Positive Airway Pressure (ICD-10-PCS; principal; 2021-05-25)
PROC: 02HV33Z Insertion of Infusion Device into Superior Vena Cava, Percutaneous Approach (ICD-10-PCS; 2021-05-29)
DX: A41.51 Sepsis due to Escherichia coli [E. coli] (principal); N10 Acute pyelonephritis; N17.9 Acute kidney failure, unspecified; I50.22 Chronic systolic (congestive) heart failure; Z68.42 Body mass index [BMI] 45.0-49.9, adult; I48.20 Chronic atrial fibrillation, unspecified; E46 Unspecified protein-calorie malnutrition; E66.01 Morbid (severe) obesity due to excess calories; I11.0 Hypertensive heart disease with heart failure; E11.9 Type 2 diabetes mellitus without complications; E78.5 Hyperlipidemia, unspecified; N40.0 Benign prostatic hyperplasia without lower urinary tract symptoms; I25.10 Atherosclerotic heart disease of native coronary artery without angina pectoris; D64.9 Anemia, unspecified; F17.210 Nicotine dependence, cigarettes, uncomplicated; R51.9 Headache, unspecified; Z79.01 Long term (current) use of anticoagulants; Z79.899 Other long term (current) drug therapy; Z95.5 Presence of coronary angioplasty implant and graft; Z71.6 Tobacco abuse counseling; Z20.822 Contact with and (suspected) exposure to COVID-19
CPT/HCPCS: 36415; 36569; 71045; 71046; 74176; 80048; 80076; 81003; 81015; 82150; 82550; 82553; 82947; 83605; 83690; 83735; 84145; 84484; 85025; 85610; 85730; 87040; 87077; 87086; 87088; 87186; 87205; 87804; 93005; 94660; 96361; 96374; 99284; G0103; J0692; J0696; J1644; J2185; J3370; J7030; J7040; J7050; U0003

== ENCOUNTER 2022-05-29 07:09 | Day surgery (SDC) | payer MEDICARE ==
--- NOTE | 2022-05-25 13:40 | RAD REPORT ---
EXAM DESCRIPTION: Dinh Hanna (2 Views)05/25/2022 1:33 pm CLINICAL HISTORY: Preop for genitourinary surgery. Hypertension COMPARISON: 2020 FINDINGS: The lungs appear clear of acute infiltrate. The heart is normal size IMPRESSION: No acute abnormalities displayed
[2022-05-25 14:26] LABS: Absolute Lymphocytes (CBC) 2.4 K/uL (0.7-4.9); Lymphocytes % 24.8 % (15.3-44.8); MCV 81.9 fL (80-100); MPV 8.2 fL (7.6-11.3); RBC Red Blood Cell Count 5.37 M/uL (4.33-5.43)
[2022-05-25 14:27] LABS: Protime INR 1.2
[2022-05-25 14:35] LABS: SARS-CoV-2 Antigen Rapid Res Negative (Negative)
[2022-05-25 15:15] LABS: Potassium 3.7 mmol/L (3.5-5.1)
[2022-05-29] MEDS ORDERED: CEFAZOLIN 2 GM IN 0.9% NACL 0 GM/0 ML BAG ONE (07:35)
[2022-05-29] MEDS ORDERED: NA CHLORIDE 0.9% 1,000 ML ONE (07:35)
[2022-05-29] MEDS ORDERED: FENTANYL CITR 100 MCG/2 ML ONE (08:02)
[2022-05-29] MEDS ORDERED: MIDAZOLAM HCL 2 MG/2 ML INJ ONE (08:02)
[2022-05-29] MEDS ORDERED: propofoL 200 MG/20 ML VIAL IV ONE (08:02)
[2022-05-29] MEDS ORDERED: LIDOCAINE 1% MPF 5 ML VIAL ONE (08:03)
[2022-05-29] MEDS ORDERED: ONDANSETRON 4 MG/2 ML VIAL ONE (08:03)
[2022-05-29 09:25] VITALS: BP 154/78; TEMP 96.5; O2SAT 96
[2022-05-29] MEDS ORDERED: Phenylephrine HCl 10 MG/ML 1 ML VIAL ONE (09:30)
--- NOTE | 2022-05-30 07:24 | EKG ---
Test Date: 2022-05-29 Test Time: 08:33:52 [employer] Teacher: REJI MEASUREMENT RESULTS: Intervals: Rate: 64 MA: QRSD: 108 QT: 366 QTc: 377 [place]: P: MA: QRS: 0 T: 252 INTERPRETIVE STATEMENTS: Atrial fibrillation with a competing junctional pacemaker Inferior infarct, age undetermined Cannot rule out Anterior infarct, age undetermined Abnormal ECG Compared to ECG 05/24/2021 12:15:22 Myocardial infarct finding now present ST (T wave) deviation no longer present Electronically Signed On 05-30-22 07:20:44 CDT by Ky Haro
== END 2022-05-29 09:00 | disposition home or self-care (01) ==
LOC: OR 07:09
PROVIDERS: ATTEND Urology
DX: N40.1 Benign prostatic hyperplasia with lower urinary tract symptoms (principal); I25.10 Atherosclerotic heart disease of native coronary artery without angina pectoris; I10 Essential (primary) hypertension; J44.9 Chronic obstructive pulmonary disease, unspecified; E11.9 Type 2 diabetes mellitus without complications; Z53.09 Procedure and treatment not carried out because of other contraindication; Z20.822 Contact with and (suspected) exposure to COVID-19
CPT/HCPCS: 93005; 87088; 85025; 87086; 80048; 36415; 85610; 82947; 71046; 87811; J7030; J0690; J2250; J2370; J2405; J2704; J3010

== ENCOUNTER 2023-06-18 11:11 | Emergency (ER) | payer MEDICARE ==
--- OUTSIDE RECORDS SUMMARY | 2023-06-18 11:20 | XMS REPORT | Continuity of Care Document ---
:1950 Author Organization [facility] t Address [address] [place] [address] Care Team Providers Name Role Phone Pat Washington MD Primary Care Physician [phone] Gerry Christian Attending Clinician Unavailable Pat Washington MD Attending Clinician [phone] Hunt_A Attending Clinician Unavailable Tin SUMMERS, Mayte Attending Clinician Doctor Unassigned, Dewey Attending Clinician Unavailable Gabriela_L Attending Clinician Unavailable Ajay_R Attending Clinician Unavailable CHACE JOHNSON Attending Clinician Unavailable CHACE JOHNSON Attending Clinician Unavailable Antony Morales MD Attending Clinician PAT WASHINGTON Attending Clinician Unavailable Therapy, [facility] Attending Clinician Unavailable Mike Martin MD Attending Clinician Pob, [facility] Main Attending Clinician Unavailable Chace Johnson MD Attending Clinician Nurse, [facility] Attending Clinician Unavailable CHRISTINE BOATENG Attending Clinician Unavailable Christine Tomlin Attending Clinician Steven Stern Attending Clinician Unavailable 2, [facility] Attending Clinician Unavailable Hunt_A Admitting Clinician Unavailable Ogbechie_L Admitting Clinician Unavailable Conroy_R Admitting Clinician Unavailable Payers Payer Name Policy Type Policy Number Effective Date Expiration Date S marizol [facility] Travel Desiya [id number] 2022 (MEDICARE 00:00:00 REPLACEMENT HMO) [facility] [id number] 2021 MEDICARE GOLD PPO 00:00:00 [place] [id number] [facility] Problems Condition Condition Condition Status Onset Resolution Last Treating Co mments Source Name Details Category Date Date Treatment Clinician Date Type 2 Type 2 Disease Active 2016-11 Univers diabetes diabetes 1-04 ity of mellitus mellitus 00:00: [place] without without 00 Medical complicati complicati Br anch on, on, without without long-term long-term current current use of use of insulin insulin Obesity, Obesity, Disease Active Unive rs Class III, Class III, 7-14 it y of BMI BMI 00:00: [place] 40-49.9 40-49.9 00 Medical (morbid (morbid Branch obesity) obesity) Arthritis Arthritis Disease Active Uni vers of right of right 7-14 ity of knee knee 00:00: [place] 00 Medical Branch Arthritis Arthritis Disease Active Uni vers of left of left 7-14 ity of shoulder shoulder 00:00: [place] region region 00 Medical Branch Renal Renal Disease Active Univers insufficie insufficie -14 it y of ncy ncy 00:00: [place] [facility] Essential Essential Disease Active Uni vers hypertensi hypertensi 5-20 it y of on, benign [place], benign 00:[place] [facility] [place] Anemia Anemia Disease Active Univers 5-20 ity of 00:00: [place] [facility] Vitamin D Vitamin D Disease Active Overview: Univers deficiency deficiency 5-20 Formattin ity of 00:00: g of this note Medical might be Branch different from the original. 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 5-20 ity of 00:00: [place] [address] Medical Branch CAD CAD Disease Active Univers (coronary (coronary 5-20 ity of artery artery 00:00: [place] disease) disease) Medica l Branch Mixed Mixed Disease Active Univers hyperlipid hyperlipid 5-20 it y of emia emia 00:00: [place] [address] Medical Branch CHF CHF Disease Active Univers (congestiv (congestiv 5-20 it y of e heart e heart 00:00: [place] failure) failure) Medica l Branch [id number] Cystitis, Problem Active Comm on chronic [facility] [id number] Acute Problem Active Common lower UTI [facility] [id number] BPH loc w Problem Active Com mon urin [facility] obs/[facility] Allergies, Adverse Reactions, Alerts Allergy Allergy Status Severity Reaction(s) Onset Inactive Treating Comm ents Source Name Type Date Date Clinician No Known DA Active U [facility] Allergie 07-19 [facility] 00:00: [address] NO KNOWN Drug Active Univers ALLERGIE Class ity of S [facility] Social History Social Habit Start Date Stop Date Quantity Comments Source Sex Assigned At Common Sp tanvir - [facility] History of Tobacco Common Spirit - Use [facility] Gender identity Universit y of [facility] Sexual orientation Univer sity of [facility] History of Social 2022-03-06 2022-03-06 Univers ity of function 00:00:00 00:00:00 [facility] Alcohol intake 2021-12-25 2021-12-25 Current University of 00:00:00 00:00:00 non-drinker of [facility] alcohol (finding) Branch Tobacco use and 2021-05-08 2021-05-08 Smokeless tobacco Un iversity of exposure 00:00:00 00:00:00 non-user [facility] Tobacco Comment 2021-05-08 2021-05-08 3-5 cigarettes a Uni versity of 00:00:00 00:00:00 day 05/08/2021. Mohit avalos smoked on and off Branch for 50 years. Smoking Status Start Date Stop Date Source Ex-smoker 2021-05-08 00:00:00 2021-05-08 00:00:00 [facility] Medical Branch Medications Ordered Filled Start Stop Current Ordering Indication Dosage Frequency Signature Comments Components Source Medication Medication Date Date Medication? Clinician (SIG) Name Name TAMSULOSIN Yes [id number] TAKE 1 Univers 0.4 mg 24 5-01 CAPSULE BY ity of hr capsule 00:00: MOUTH [place] EVERY DAY Medical Branch TAMSULOSIN 2022-0 Yes [id number] TAKE 1 Univers 0.4 mg 24 5-01 CAPSULE BY ity of hr capsule 00:00: MOUTH [place] EVERY DAY Medical Branch TAMSULOSIN 2022-0 Yes [id number] TAKE 1 Univers 0.4 mg 24 5-01 CAPSULE BY ity of hr capsule 00:00: MOUTH [place] EVERY DAY Medical Branch TAMSULOSIN 2022-0 Yes [id number] TAKE 1 Univers 0.4 mg 24 5-01 CAPSULE BY ity of hr capsule 00:00: MOUTH [place] EVERY DAY Medical Branch AMLODIPINE 2021-0 Yes [id number] TAKE 1 Un mary 10 mg 9-29 TABLET BY ity of tablet 00:00: MOUTH [place] EVERY DAY Medical Branch LOSARTAN 2021-0 Yes [id number] TAKE 1 Un mary 100 mg 9-29 TABLET BY ity of tablet 00:00: MOUTH [place] EVERY DAY Medical Branch AMLODIPINE 2021-0 Yes [id number] TAKE 1 Un mary 10 mg 9-29 TABLET BY ity of tablet 00:00: MOUTH [place] EVERY DAY Medical Branch LOSARTAN 2-0 Yes [id number] TAKE 1 Un mary 100 mg 9-29 TABLET BY ity of tablet 00:00: MOUTH [place] EVERY DAY Medical Branch AMLODIPINE 2-0 Yes [id number] TAKE 1 Un mary 10 mg 9-29 TABLET BY ity of tablet 00:00: MOUTH [place] EVERY DAY Medical Branch LOSARTAN 2-0 Yes [id number] TAKE 1 Un mary 100 mg 9-29 TABLET BY ity of tablet 00:00: MOUTH [place] EVERY DAY Medical Branch AMLODIPINE 2-0 Yes [id number] TAKE 1 Un mary 10 mg 9-29 TABLET BY ity of tablet 00:00: MOUTH [place] 00 EVERY DAY Medical Branch LOSARTAN 2022-0 Yes [id number] TAKE 1 Un mary 100 mg 9-29 TABLET BY ity of tablet 00:00: MOUTH 00 EVERY DAY Medical Branch AMLODIPINE 2022-0 Yes [id number] TAKE 1 Un mary 10 mg 9-29 TABLET BY ity of tablet 00:00: MOUTH 00 EVERY DAY Medical Branch LOSARTAN 2022-0 Yes [id number] TAKE 1 Un mary 100 mg 9-29 TABLET BY ity of tablet 00:00: MOUTH 00 EVERY DAY Medical Branch AMLODIPINE 2022-0 Yes [id number] TAKE 1 Un mary 10 mg 9-29 TABLET BY ity of tablet 00:00: MOUTH 00 EVERY DAY Medical Branch LOSARTAN 2022-0 Yes [id number] TAKE 1 Un mary 100 mg 9-29 TABLET BY ity of tablet 00:00: MOUTH 00 EVERY DAY Medical Branch AMLODIPINE 2022-0 Yes [id number] TAKE 1 Un mary 10 mg 9-29 TABLET BY ity of tablet 00:00: MOUTH 00 EVERY DAY Medical Branch LOSARTAN 2022-0 Yes [id number] TAKE 1 Un mary 100 mg 9-29 TABLET BY ity of tablet 00:00: MOUTH 00 EVERY DAY Medical Branch AMLODIPINE 2022-0 Yes [id number] TAKE 1 Un mayr 10 mg 9-29 TABLET BY ity of tablet 00:00: MOUTH 00 EVERY DAY Medical Branch LOSARTAN 2022-0 Yes [id number] TAKE 1 Un mary 100 mg 9-29 TABLET BY ity of tablet 00:00: MOUTH 00 EVERY DAY Medical Branch AMLODIPINE 2022-0 Yes [id number] TAKE 1 Un mary 10 mg 9-29 TABLET BY ity of tablet 00:00: MOUTH 00 EVERY DAY Medical Branch LOSARTAN 2022-0 Yes [id number] TAKE 1 Un mary 100 mg 9-29 TABLET BY ity of tablet 00:00: MOUTH 00 EVERY DAY Medical Branch AMLODIPINE 2022-0 Yes [id number] TAKE 1 Un mary 10 mg 9-29 TABLET BY ity of tablet 00:00: MOUTH 00 EVERY DAY Medical Branch LOSARTAN 2022-0 Yes [id number] TAKE 1 Un mary 100 mg 9-29 TABLET BY ity of tablet 00:00: MOUTH 00 EVERY DAY Medical Branch FUROSEMIDE 2022-0 Yes [id number] TAKE 2 Univers 40 mg 9-12 TABLETS BY ity of tablet 00:00: MOUTH 00 TWICE A Medical DAY Branch FUROSEMIDE 2022-0 Yes [id number] TAKE 2 Univers 40 mg 9-12 TABLETS BY ity of tablet 00:00: MOUTH 00 TWICE A Medical DAY Branch FUROSEMIDE 2022-0 Yes [id number] TAKE 2 Univers 40 mg 9-12 TABLETS BY ity of tablet 00:00: MOUTH TWICE A Medical DAY Branch FUROSEMIDE 2022-0 Yes [id number] TAKE 2 Univers 40 mg 9-12 TABLETS BY ity of tablet 00:00: MOUTH TWICE A Medical DAY Branch FUROSEMIDE 2022-0 Yes [id number] TAKE 2 Univers 40 mg 9-12 TABLETS BY ity of tablet 00:00: MOUTH TWICE A Medical DAY Branch FUROSEMIDE 2022-0 Yes [id number] TAKE 2 Univers 40 mg 9-12 TABLETS BY ity of tablet 00:00: MOUTH TWICE A Medical DAY Branch FUROSEMIDE 2022-0 Yes [id number] TAKE 2 Univers 40 mg 9-12 TABLETS BY ity of tablet 00:00: MOUTH TWICE A Medical DAY Branch FUROSEMIDE 2022-0 Yes [id number] TAKE 2 Univers 40 mg 9-12 TABLETS BY ity of tablet 00:00: MOUTH TWICE A Medical DAY Branch FUROSEMIDE 2022-0 Yes [id number] TAKE 2 Univers 40 mg 9-12 TABLETS BY ity of tablet 00:00: MOUTH TWICE A Medical DAY Branch FUROSEMIDE 2022-0 Yes [id number] TAKE 2 Univers 40 mg 9-12 TABLETS BY ity of tablet 00:00: MOUTH TWICE A Medical DAY Branch FUROSEMIDE 2022-0 Yes [id number] TAKE 2 Univers 40 mg 9-12 TABLETS BY ity of tablet 00:00: MOUTH TWICE A Medical DAY Branch LOSARTAN 2022-0 Yes [id number] TAKE 1 Un mary 100 mg 9-02 TABLET BY ity of tablet 00:00: MOUTH EVERY DAY Medical Branch AMLODIPINE 2022-0 Yes [id number] TAKE 1 Un mary 10 mg 9-02 TABLET BY ity of tablet 00:00: MOUTH EVERY DAY Medical Branch LOSARTAN 2022-0 Yes [id number] TAKE 1 Un mary 100 mg 9-02 TABLET BY ity of tablet 00:00: MOUTH EVERY DAY Medical Branch AMLODIPINE 2022-0 Yes [id number] TAKE 1 Un mary 10 mg 9-02 TABLET BY ity of tablet 00:00: MOUTH [place] 00 EVERY DAY Medical Branch LOSARTAN 2021-0 2021- No [id number] TAKE 1 U nivers 100 mg 9-08-09 TABLET BY ity of tablet 00:00: 00:00 MOUTH [place] 00 :00 EVERY DAY Medical Branch AMLODIPINE 2021-0 2- No [id number] TAKE 1 U nivers 10 mg 9-08-09 TABLET BY ity of tablet 00:00: 00:00 MOUTH [place] 00 :00 EVERY DAY Medical Branch AMLODIPINE 2021-0 Yes [id number] TAKE 1 Un mary 10 mg 8-10 TABLET BY ity of tablet 00:00: MOUTH [place] 00 EVERY DAY Medical Branch LOSARTAN 2021-0 Yes [id number] TAKE 1 Un mary 100 mg 8-10 TABLET BY ity of tablet 00:00: MOUTH [place] 00 EVERY DAY Medical Branch AMLODIPINE 2021-0 2021- No [id number] TAKE 1 U nivers 10 mg 8-10 - TABLET BY ity of tablet 00:00: 00:00 MOUTH [place] 00 :00 EVERY DAY Medical Branch LOSARTAN 2021-0 2021- No [id number] TAKE 1 U nivers 100 mg 8-10 - TABLET BY ity of tablet 00:00: 00:00 MOUTH [place] 00 :00 EVERY DAY Medical Branch NATEGLINIDE 2021-0 Yes [id number] TOME 1 Univers 60 mg 8-01 TABLETA ity of tablet 00:00: POR LA [place] 00 BOCA 3 Medical VECES AL Branch TAMI ANTES DE LAS COMIDAS NATEGLINIDE 2021-0 Yes [id number] TOME 1 Univers 60 mg 8-01 TABLETA ity of tablet 00:00: POR LA [place] 00 BOCA 3 Medical VECES AL Branch TAMI ANTES DE LAS COMIDAS NATEGLINIDE 2021-0 Yes [id number] TOME 1 Univers 60 mg 8-01 TABLETA ity of tablet 00:00: POR LA [place] 00 BOCA 3 Medical VECES AL Branch TAMI ANTES DE LAS COMIDAS NATEGLINIDE 2021-0 Yes [id number] TOME 1 Univers 60 mg 8-01 TABLETA ity of tablet 00:00: POR LA [place] 00 BOCA 3 Medical VECES AL Branch TAMI ANTES DE LAS COMIDAS NATEGLINIDE 2022-0 Yes [id number] TOME 1 Univers 60 mg 8-01 TABLETA ity of tablet 00:00: POR LA [place] 00 BOCA 3 Medical VECES AL Branch TAMI ANTES DE LAS COMIDAS NATEGLINIDE 2021-0 Yes [id number] TOME 1 Univers 60 mg 8-01 TABLETA ity of tablet 00:00: POR LA [place] 00 BOCA 3 Medical VECES AL Branch TAMI ANTES DE LAS COMIDAS NATEGLINIDE 2021-0 Yes [id number] TOME 1 Univers 60 mg 8-01 TABLETA ity of tablet 00:00: POR LA [place] 00 BOCA 3 Medical VECES AL Branch TAMI ANTES DE LAS COMIDAS NATEGLINIDE 2021-0 Yes [id number] TOME 1 Univers 60 mg 8-01 TABLETA ity of tablet 00:00: POR LA [place] 00 BOCA 3 Medical VECES AL Branch TAMI ANTES DE LAS COMIDAS NATEGLINIDE 2021-0 Yes [id number] TOME 1 Univers 60 mg 8-01 TABLETA ity of tablet 00:00: POR LA [place] 00 BOCA 3 Medical VECES AL Branch TAMI ANTES DE LAS COMIDAS NATEGLINIDE 2021-0 Yes [id number] TOME 1 Univers 60 mg 8-01 TABLETA ity of tablet 00:00: POR LA [place] 00 BOCA 3 Medical VECES AL Branch TAMI ANTES DE LAS COMIDAS NATEGLINIDE 2021-0 Yes [id number] TOME 1 Univers 60 mg 8-01 TABLETA ity of tablet 00:00: POR LA [place] 00 BOCA 3 Medical VECES AL Branch TAMI ANTES DE LAS COMIDAS NATEGLINIDE 2021-0 Yes [id number] TOME 1 Univers 60 mg 8-01 TABLETA ity of tablet 00:00: POR LA [place] 00 BOCA 3 Medical VECES AL Branch TAMI ANTES DE LAS COMIDAS NATEGLINIDE 2021-0 Yes [id number] TOME 1 Univers 60 mg 8-01 TABLETA ity of tablet 00:00: POR LA [place] 00 BOCA 3 Medical VECES AL Branch TAMI ANTES DE LAS COMIDAS AMLODIPINE 2021-0 Yes [id number] TAKE 1 Un mary 10 mg 7-11 TABLET BY ity of tablet 00:00: MOUTH [place] 00 EVERY DAY Medical Branch LOSARTAN 2021-0 Yes [id number] TAKE 1 Un mary 100 mg 7-11 TABLET BY ity of tablet 00:00: MOUTH [place] 00 EVERY DAY Medical Branch AMLODIPINE 2022-0 2- No [id number] TAKE 1 U nivers 10 mg 7-11 08-10 TABLET BY ity of tablet 00:00: 00:00 MOUTH [place] 00 :00 EVERY DAY Medical Branch LOSARTAN 2022-0 2022- No [id number] TAKE 1 U nivers 100 mg 7-11 08-10 TABLET BY ity of tablet 00:00: 00:00 MOUTH [place] 00 :00 EVERY DAY Medical Branch AMLODIPINE 2-0 2- No [id number] TAKE 1 U nivers 10 mg 7-11 08-10 TABLET BY ity of tablet 00:00: 00:00 MOUTH [place] 00 :00 EVERY DAY Medical Branch LOSARTAN 2022-0 2022- No [id number] TAKE 1 U nivers 100 mg 7-11 08-10 TABLET BY ity of tablet 00:00: 00:00 MOUTH [place] 00 :00 EVERY DAY Medical Branch AMLODIPINE 2-0 2- No [id number] TAKE 1 U nivers 10 mg 6-14 07-11 TABLET BY ity of tablet 00:00: 00:00 MOUTH [place] 00 :00 EVERY DAY Medical Branch LOSARTAN 2-0 2- No [id number] TAKE 1 U nivers 100 mg 6-14 07-11 TABLET BY ity of tablet 00:00: 00:00 MOUTH [place] 00 :00 EVERY DAY Medical Branch CYANOCOBALA Yes Take by Uni vers MIN, 4-26 mouth ity of VITAMIN 12:53: daily. [facility] Medical (VITAMIN Branch B-12 ORAL) CYANOCOBALA Yes Take by Uni vers MIN, 4-26 mouth ity of VITAMIN 12:53: daily. [place] Medical (VITAMIN Branch B-12 ORAL) CYANOCOBALA Yes Take by Uni vers MIN, 4-26 mouth ity of VITAMIN 12:53: daily. [place] Medical (VITAMIN Branch B-12 ORAL) CYANOCOBALA Yes Take by Uni vers MIN, 4-26 mouth ity of VITAMIN 12:53: daily. [place] B-12, 28 Medical (VITAMIN Branch B-12 ORAL) CYANOCOBALA Yes Take by Uni vers MIN, 4-26 mouth ity of VITAMIN 12:53: daily. [place] B- Medical (VITAMIN Branch B-12 ORAL) CYANOCOBALA 0 Yes Take by Uni vers MIN, 4-26 mouth ity of VITAMIN 12:53: daily. [place] B-, Medical (VITAMIN Branch B-12 ORAL) CYANOCOBALA 0 Yes Take by Uni vers MIN, 4-26 mouth ity of VITAMIN 12:53: daily. [place] B, Medical (VITAMIN Branch B-12 ORAL) CYANOCOBALA Yes Take by Uni vers MIN, 4-26 mouth ity of VITAMIN 12:53: daily. [place] B-, 28 Medical (VITAMIN Branch B-12 ORAL) CYANOCOBALA Yes Take by Uni vers MIN, 4-26 mouth ity of VITAMIN 12:53: daily. [place] Medical (VITAMIN Branch B-12 ORAL) CYANOCOBALA 0 Yes Take by Uni vers MIN, 4-26 mouth ity of VITAMIN 12:53: daily. [place] B Medical (VITAMIN Branch B-12 ORAL) CYANOCOBALA 0 Yes Take by Uni vers MIN, 4-26 mouth ity of VITAMIN 12:53: daily. [place] B 28 Medical (VITAMIN Branch B-12 ORAL) CYANOCOBALA 0 Yes Take by Uni vers MIN, 4-26 mouth ity of VITAMIN 12:53: daily. [place] B, 28 Medical (VITAMIN Branch B-12 ORAL) CYANOCOBALA 0 Yes Take by Uni vers MIN, 4-26 mouth ity of VITAMIN 12:53: daily. [place] B-, 28 Medical (VITAMIN Branch B-12 ORAL) CYANOCOBALA 0 Yes Take by Uni vers MIN, 4-26 mouth ity of VITAMIN 12:53: daily. [place] B-, 28 Medical (VITAMIN Branch B-12 ORAL) CYANOCOBALA 0 Yes Take by Uni vers MIN, 4-26 mouth ity of VITAMIN 12:53: daily. [place] B, 28 Medical (VITAMIN Branch B-12 ORAL) CYANOCOBALA 2022-0 Yes Take by Uni vers MIN, 4-26 mouth ity of VITAMIN 12:53: daily. [place] B-12, 28 Medical (VITAMIN [place] B-12 ORAL) apixaban 5 2-0 Yes 5mg Take 5 mg Un mary mg tablet 4-26 by mouth 2 ity of 12:53: (two) [place] 24 times Medical daily. Branch apixaban 5 2-0 Yes 5mg Take 5 mg Un mary mg tablet 4-26 by mouth 2 ity of 12:53: (two) [place] 24 times Medical daily. Branch apixaban 5 2-0 Yes 5mg Take 5 mg Un mary mg tablet 4-26 by mouth 2 ity of 12:53: (two) [place] 24 times Medical daily. Branch apixaban 5 2-0 Yes 5mg Take 5 mg Un mary mg tablet 4-26 by mouth 2 ity of 12:53: (two) [place] 24 times Medical daily. Branch apixaban 5 2-0 Yes 5mg Take 5 mg Un mary mg tablet 4-26 by mouth 2 ity of 12:53: (two) [place] 24 times Medical daily. Branch apixaban 5 2-0 Yes 5mg Take 5 mg Un mary mg tablet 4-26 by mouth 2 ity of 12:53: (two) [place] 24 times Medical daily. Branch apixaban 5 2-0 Yes 5mg Take 5 mg Un mary mg tablet 4-26 by mouth 2 ity of 12:53: (two) [place] 24 times Medical daily. Branch apixaban 5 2-0 Yes 5mg Take 5 mg Un mary mg tablet 4-26 by mouth 2 ity of 12:53: (two) [place] 24 times Medical daily. Branch apixaban 5 2-0 Yes 5mg Take 5 mg Un mary mg tablet 4-26 by mouth 2 ity of 12:53: (two) [place] 24 times Medical daily. Branch apixaban 5 2-0 Yes 5mg Take 5 mg Un mary mg tablet 4-26 by mouth 2 ity of 12:53: (two) [place] 24 times Medical daily. Branch apixaban 5 2-0 Yes 5mg Take 5 mg Un mary mg tablet 4-26 by mouth 2 ity of 12:53: (two) [place] 24 times Medical daily. Branch apixaban 5 2021-0 Yes 5mg Take 5 mg Un mary mg tablet 4-26 by mouth 2 ity of 12:53: (two) [place] 24 times Medical daily. Branch apixaban 5 2021-0 Yes 5mg Take 5 mg Un mary mg tablet 4-26 by mouth 2 ity of 12:53: (two) [place] 24 times Medical daily. Branch apixaban 5 2021-0 Yes 5mg Take 5 mg Un mary mg tablet 4-26 by mouth 2 ity of 12:53: (two) [place] 24 times Medical daily. Branch apixaban 5 2021-0 Yes 5mg Take 5 mg Un mary mg tablet 4-26 by mouth 2 ity of 12:53: (two) [place] 24 times Medical daily. Branch apixaban 5 2021-0 Yes 5mg Take 5 mg Un mary mg tablet 4-26 by mouth 2 ity of 12:53: (two) [place] 24 times Medical daily. Branch carvediloL 2021-0 Yes 6.25mg Take 1 Uni vers 6.25 mg 4-26 tablet by ity of tablet 00:00: mouth [place] 00 daily. Medical Branch DULoxetine 2021-0 Yes [id number] 60mg Take 1 Univers 60 mg 4-26 capsule by ity of capsule 00:00: mouth [place] 00 daily. Medical Branch carvediloL 2021-0 Yes 6.25mg Take 1 Uni vers 6.25 mg 4-26 tablet by ity of tablet 00:00: mouth [place] 00 daily. Medical Branch DULoxetine 2021-0 Yes [id number] 60mg Take 1 Univers 60 mg 4-26 capsule by ity of capsule 00:00: mouth [place] 00 daily. Medical Branch carvediloL 2021-0 Yes 6.25mg Take 1 Uni vers 6.25 mg 4-26 tablet by ity of tablet 00:00: mouth [place] 00 daily. Medical Branch DULoxetine 2021-0 Yes [id number] 60mg Take 1 Univers 60 mg 4-26 capsule by ity of capsule 00:00: mouth [place] 00 daily. Medical Branch carvediloL 2021-0 Yes 6.25mg Take 1 Uni vers 6.25 mg 4-26 tablet by ity of tablet 00:00: mouth [place] 00 daily. Medical Branch DULoxetine 2021-0 Yes [id number] 60mg Take 1 Univers 60 mg 4-26 capsule by ity of capsule 00:00: mouth [place] 00 daily. Medical Branch carvediloL 0 Yes 6.25mg Take 1 Uni vers 6.25 mg 4-26 tablet by ity of tablet 00:00: mouth [place] 00 daily. Medical Branch DULoxetine 0 Yes [id number] 60mg Take 1 Univers 60 mg 4-26 capsule by ity of capsule 00:00: mouth [place] 00 daily. Medical Branch carvediloL 0 Yes 6.25mg Take 1 Uni vers 6.25 mg 4-26 tablet by ity of tablet 00:00: mouth [place] 00 daily. Medical Branch DULoxetine 0 Yes [id number] 60mg Take 1 Univers 60 mg 4-26 capsule by ity of capsule 00:00: mouth [place] 00 daily. Medical Branch carvediloL Yes 6.25mg Take 1 Uni vers 6.25 mg 4-26 tablet by ity of tablet 00:00: mouth [place] 00 daily. Medical Branch DULoxetine Yes [id number] 60mg Take 1 Univers 60 mg 4-26 capsule by ity of capsule 00:00: mouth [place] 00 daily. Medical Branch carvediloL 0 Yes 6.25mg Take 1 Uni vers 6.25 mg 4-26 tablet by ity of tablet 00:00: mouth [place] 00 daily. Medical Branch DULoxetine Yes [id number] 60mg Take 1 Univers 60 mg 4-26 capsule by ity of capsule 00:00: mouth [place] 00 daily. Medical Branch carvediloL 0 Yes 6.25mg Take 1 Uni vers 6.25 mg 4-26 tablet by ity of tablet 00:00: mouth [place] 00 daily. Medical Branch DULoxetine 0 Yes [id number] 60mg Take 1 Univers 60 mg 4-26 capsule by ity of capsule 00:00: mouth [place] 00 daily. Medical Branch carvediloL 0 Yes 6.25mg Take 1 Uni vers 6.25 mg 4-26 tablet by ity of tablet 00:00: mouth [place] 00 daily. Medical Branch DULoxetine 0 Yes [id number] 60mg Take 1 Univers 60 mg 4-26 capsule by ity of capsule 00:00: mouth [place] 00 daily. Medical Branch carvediloL 0 Yes 6.25mg Take 1 Uni vers 6.25 mg 4-26 tablet by ity of tablet 00:00: mouth [place] 00 daily. Medical Branch DULoxetine 0 Yes [id number] 60mg Take 1 Univers 60 mg 4-26 capsule by ity of capsule 00:00: mouth [place] 00 daily. Medical Branch carvediloL 0 Yes 6.25mg Take 1 Uni vers 6.25 mg 4-26 tablet by ity of tablet 00:00: mouth [place] 00 daily. Medical Branch DULoxetine Yes [id number] 60mg Take 1 Univers 60 mg 4-26 capsule by ity of capsule 00:00: mouth [place] 00 daily. Medical Branch carvediloL Yes 6.25mg Take 1 Uni vers 6.25 mg 4-26 tablet by ity of tablet 00:00: mouth [place] 00 daily. Medical Branch DULoxetine Yes [id number] 60mg Take 1 Univers 60 mg 4-26 capsule by ity of capsule 00:00: mouth [place] 00 daily. Medical Branch carvediloL 0 Yes 6.25mg Take 1 Uni vers 6.25 mg 4-26 tablet by ity of tablet 00:00: mouth [place] 00 daily. Medical Branch DULoxetine Yes [id number] 60mg Take 1 Univers 60 mg 4-26 capsule by ity of capsule 00:00: mouth [place] 00 daily. Medical Branch carvediloL Yes 6.25mg Take 1 Uni vers 6.25 mg 4-26 tablet by ity of tablet 00:00: mouth [place] 00 daily. Medical Branch DULoxetine 0 Yes [id number] 60mg Take 1 Univers 60 mg 4-26 capsule by ity of capsule 00:00: mouth [place] 00 daily. Medical Branch carvediloL 0 Yes 6.25mg Take 1 Uni vers 6.25 mg 4-26 tablet by ity of tablet 00:00: mouth [place] 00 daily. Medical Branch DULoxetine 0 Yes [id number] 60mg Take 1 Univers 60 mg 4-26 capsule by ity of capsule 00:00: mouth [place] 00 daily. Medical Branch Bactrim DS Bactrim DS 2021-0 2022- No 1{table BID Bactrim DS 800-160 MG 800-160 MG 3-20 t} 800-160 MG 00:00: 00:00 00 :00 tamsulosin 2021-0 Yes [id number] .4mg Take 1 Univers 0.4 mg 24 2-14 capsule by ity of hr capsule 00:00: mouth daily. Medical Branch blood sugar 2021-0 Yes [id number] Check Univers diagnostic 2-14 sugars 2 ity o f strip 00:00: times a day. Dx Medical Code Branch E11.9. Freestyle. Lancets Yes [id number] Check Univ ers Misc 2-14 sugars 2 ity of 00:00: times a day. Dx Medical Code Branch E11.9. Freestyle. tamsulosin 2021- Yes [id number] .4mg Take 1 Univers 0.4 mg 24 2-14 capsule by ity of hr capsule 00:00: mouth daily. Medical Branch blood sugar Yes [id number] Check Univers diagnostic 2-14 sugars 2 ity o f strip 00:00: times a day. Dx Medical Code Branch E11.9. Freestyle. Lancets Yes [id number] Check Univ ers Misc 2-14 sugars 2 ity of 00:00: times a day. Dx Medical Code Branch E11.9. Freestyle. tamsulosin 2021- Yes [id number] .4mg Take 1 Univers 0.4 mg 24 2-14 capsule by ity of hr capsule 00:00: mouth daily. Medical Branch blood sugar Yes [id number] Check Univers diagnostic 2-14 sugars 2 ity o f strip 00:00: times a day. Dx Medical Code Branch E11.9. Freestyle. Lancets 2021-0 Yes [id number] Check Univ ers Misc 2-14 sugars 2 ity of 00:00: times a day. Dx Medical Code Branch E11.9. Freestyle. tamsulosin 2021- Yes [id number] .4mg Take 1 Univers 0.4 mg 24 2-14 capsule by ity of hr capsule 00:00: mouth daily. Medical Branch blood sugar 2021-0 Yes [id number] Check [facility] diagnostic 2-14 sugars 2 ity o f strip 00:00: times a day. Dx Medical Code Branch E11.9. Freestyle. Lancets Yes [id number] Check [facility] ers Misc 2-14 sugars 2 ity of 00:00: times a day. Dx Medical Code Branch E11.9. Freestyle. tamsulosin Yes [id number] .4mg Take 1 [facility] 0.4 mg 24 2-14 capsule by ity of hr capsule 00:00: mouth 00 daily. Medical Branch blood sugar Yes [id number] Check [facility] diagnostic 2-14 sugars 2 ity o f strip 00:00: times a day. Dx Medical Code Branch E11.9. Freestyle. Lancets Yes [id number] Check [facility] ers Misc 2-14 sugars 2 ity of 00:00: times a day. Dx Medical Code Branch E11.9. Freestyle. tamsulosin Yes [id number] .4mg Take 1 [facility] 0.4 mg 24 2-14 capsule by ity of hr capsule 00:00: mouth daily. Medical Branch blood sugar Yes [id number] Check [facility] diagnostic 2-14 sugars 2 ity o f strip 00:00: times a day. Dx Medical Code Branch E11.9. Freestyle. Lancets Yes [id number] Check [facility] ers Misc 2-14 sugars 2 ity of 00:00: times a day. Dx Medical Code Branch E11.9. Freestyle. tamsulosin Yes [id number] .4mg Take 1 [facility] 0.4 mg 24 2-14 capsule by ity of hr capsule 00:00: mouth daily. Medical Branch blood sugar Yes [id number] Check [facility] diagnostic 2-14 sugars 2 ity o f strip 00:00: times a day. Dx Medical Code Branch E11.9. Freestyle. Lancets Yes [id number] Check [facility] ers Misc 2-14 sugars 2 ity of 00:00: times a day. Dx Medical Code Branch E11.9. Freestyle. tamsulosin Yes [id number] .4mg Take 1 [facility] 0.4 mg 24 2-14 capsule by ity of hr capsule 00:00: mouth daily. Medical Branch blood sugar Yes [id number] Check [facility] diagnostic 2-14 sugars 2 ity o f strip 00:00: times a day. Dx Medical Code Branch E11.9. Freestyle. Lancets Yes [id number] Check [facility] ers Misc 2-14 sugars 2 ity of 00:00: times a day. Dx Medical Code Branch E11.9. Freestyle. tamsulosin Yes [id number] .4mg Take 1 [facility] 0.4 mg 24 2-14 capsule by ity of hr capsule 00:00: mouth daily. Medical Branch blood sugar Yes [id number] Check [facility] diagnostic 2-14 sugars 2 ity o f strip 00:00: times a day. Dx Medical Code Branch E11.9. Freestyle. Lancets Yes [id number] Check [facility] ers Misc 2-14 sugars 2 ity of 00:00: times a day. Dx Medical Code Branch E11.9. Freestyle. tamsulosin Yes [id number] .4mg Take 1 [facility] 0.4 mg 24 2-14 capsule by ity of hr capsule 00:00: mouth daily. Medical Branch blood sugar Yes [id number] Check [facility] diagnostic 2-14 sugars 2 ity o f strip 00:00: times a day. Dx Medical Code Branch E11.9. Freestyle. Lancets Yes [id number] Check [facility] ers Misc 2-14 sugars 2 ity of 00:00: times a day. Dx Medical Code Branch E11.9. Freestyle. tamsulosin Yes [id number] .4mg Take 1 [facility] 0.4 mg 24 2-14 capsule by ity of hr capsule 00:00: mouth daily. Medical Branch blood sugar Yes [id number] Check [facility] diagnostic 2-14 sugars 2 ity o f strip 00:00: times a day. Dx Medical Code Branch E11.9. Freestyle. Lancets Yes [id number] Check [facility] ers Misc 2-14 sugars 2 ity of 00:00: times a day. Dx Medical Code Branch E11.9. Freestyle. tamsulosin Yes [id number] .4mg Take 1 [facility] 0.4 mg 24 2-14 capsule by ity of hr capsule 00:00: mouth [place] 00 daily. Medical Branch blood sugar 0 Yes [id number] Check [facility] diagnostic 2-14 sugars 2 ity o f strip 00:00: times a day. Dx Medical Code Branch E11.9. Freestyle. Lancets 0 Yes [id number] Check [facility] ers Misc 2-14 sugars 2 ity of 00:00: times a day. Dx Medical Code Branch E11.9. Freestyle. blood sugar Yes [id number] Check [facility] diagnostic 2-14 sugars 2 ity o f strip 00:00: times a day. Dx Medical Code Branch E11.9. Freestyle. Lancets 0 Yes [id number] Check [facility] ers Misc 2-14 sugars 2 ity of 00:00: times a day. Dx Medical Code Branch E11.9. Freestyle. blood sugar 0 Yes [id number] Check [facility] diagnostic 2-14 sugars 2 ity o f strip 00:00: times a day. Dx Medical Code Branch E11.9. Freestyle. Lancets 0 Yes [id number] Check [facility] ers Misc 2-14 sugars 2 ity of 00:00: times a day. Dx Medical Code Branch E11.9. Freestyle. blood sugar 0 Yes [id number] Check [facility] diagnostic 2-14 sugars 2 ity o f strip 00:00: times a day. Dx Medical Code Branch E11.9. Freestyle. Lancets 0 Yes [id number] Check [facility] ers Misc 2-14 sugars 2 ity of 00:00: times a day. Dx Medical Code Branch E11.9. Freestyle. blood sugar 2021-0 Yes [id number] Check [facility] diagnostic 2-14 sugars 2 ity o f strip 00:00: times a day. Dx Medical Code Branch E11.9. Freestyle. Lancets 0 Yes [id number] Check [facility] ers Misc 2-14 sugars 2 ity of 00:00: times a day. Dx Medical Code Branch E11.9. Freestyle. tamsulosin 2022- No [id number] .4mg Take 1 [facility] 0.4 mg 24 12-25 capsule by ity of hr capsule 00:00: 00:00 mouth [place] 00 :00 daily. Medical Branch rosuvastati 0 Yes [id number] TOME 1 Univers n 20 mg 1-31 TABLETA ity of tablet 00:00: POR [place] [facility] Medical ACOSTARSE Branch rosuvastati Yes [id number] TOME 1 Univers n 20 mg 1-31 TABLETA ity of tablet 00:00: P[facility] Medical ACOSTARSE Branch rosuvastati Yes [id number] TOME 1 Univers n 20 mg 1-31 TABLETA ity of tablet 00:00: P[facility] Medical ACOSTARSE Branch rosuvastati Yes [id number] TOME 1 Univers n 20 mg 1-31 TABLETA ity of tablet 00:00: P[facility] Medical ACOSTARSE Branch rosuvastati 0 Yes [id number] TOME 1 Univers n 20 mg 1-31 TABLETA ity of tablet 00:00: P[facility] Medical ACOSTARSE Branch rosuvastati 0 Yes [id number] TOME 1 Univers n 20 mg 1-31 TABLETA ity of tablet 00:00: P[facility] Medical ACOSTARSE Branch rosuvastati 0 Yes [id number] TOME 1 Univers n 20 mg 1-31 TABLETA ity of tablet 00:00: POR [facility] Medical ACOSTARSE Branch rosuvastati 0 Yes [id number] TOME 1 Univers n 20 mg 1-31 TABLETA ity of tablet 00:00: POR [facility] Medical ACOSTARSE Branch rosuvastati 0 Yes [id number] TOME 1 Univers n 20 mg 1-31 TABLETA ity of tablet 00:00: POR [facility] Medical ACOSTARSE Branch rosuvastati 2022-0 Yes [id number] TOME 1 Univers n 20 mg 1-31 TABLETA ity of tablet 00:00: POR LA [place] 00 [facility] Medical ACOSTARSE Branch rosuvastati 2021-0 Yes [id number] TOME 1 Univers n 20 mg 1-31 TABLETA ity of tablet 00:00: POR LA [place] 00 [facility] Medical ACOSTARSE Branch rosuvastati 2021-0 Yes [id number] TOME 1 Univers n 20 mg 1-31 TABLETA ity of tablet 00:00: POR LA [place] 00 [facility] Medical ACOSTARSE Branch rosuvastati 2021-0 Yes [id number] TOME 1 Univers n 20 mg 1-31 TABLETA ity of tablet 00:00: POR LA [place] 00 [facility] Medical ACOSTARSE Branch rosuvastati 2021-0 Yes [id number] TOME 1 Univers n 20 mg 1-31 TABLETA ity of tablet 00:00: POR LA [place] 00 [facility] Medical ACOSTARSE Branch rosuvastati 2021-0 Yes [id number] TOME 1 Univers n 20 mg 1-31 TABLETA ity of tablet 00:00: POR LA [place] 00 [facility] Medical ACOSTARSE Branch rosuvastati 2021-0 Yes [id number] TOME 1 Univers n 20 mg 1-31 TABLETA ity of tablet 00:00: POR LA [place] 00 [facility] Medical ACOSTARSE Branch FUROSEMIDE 2020- Yes [id number] TAKE 2 Univers 40 mg 2-20 TABLETS BY ity of tablet 00:00: MOUTH [place] 00 TWICE A Medical DAY Branch FUROSEMIDE 2020-1 Yes [id number] TAKE 2 Univers 40 mg 2-20 TABLETS BY ity of tablet 00:00: MOUTH [place] 00 TWICE A Medical DAY Branch FUROSEMIDE 2020-1 Yes [id number] TAKE 2 Univers 40 mg 2-20 TABLETS BY ity of tablet 00:00: MOUTH [place] 00 TWICE A Medical DAY Branch FUROSEMIDE 202-1 2022- No [id number] TAKE 2 Univers 40 mg 2-20 09-12 TABLETS BY ity of tablet 00:00: 00:00 MOUTH [place] 00 :00 TWICE A Medical DAY Branch FUROSEMIDE 2020-1 2- No [id number] TAKE 2 Univers 40 mg 2-20 09-12 TABLETS BY ity of tablet 00:00: 00:00 MOUTH [place] 00 :00 TWICE A Medical DAY Branch FUROSEMIDE 2020-112- No [id number] TAKE 2 Univers 40 mg 2-20 09-12 TABLETS BY ity of tablet 00:00: 00:00 MOUTH [place] 00 :00 TWICE A Medical DAY Branch Lancing Yes Check [facility] Device 7-28 blood ity of (EASY MINI 00:00: sugar [place] EJECT 00 twice a Medical LANCING day. E11.9 Branch DEVICE) Misc Lancing Yes Check [facility] Device 7-28 blood ity of (EASY MINI 00:00: sugar [place] EJECT 00 twice a Medical LANCING day. E11.9 Branch DEVICE) Misc Lancing Yes Check [facility] Device 7-28 blood ity of (EASY MINI 00:00: sugar [place] EJECT 00 twice a Medical LANCING day. E11.9 Branch DEVICE) Misc Lancing Yes Check [facility] Device 7-28 blood ity of (EASY MINI 00:00: sugar [place] EJECT 00 twice a Medical LANCING day. E11.9 Branch DEVICE) Misc Lancing Yes Check [facility] Device 7-28 blood ity of (EASY MINI 00:00: sugar [place] EJECT 00 twice a Medical LANCING day. E11.9 Branch DEVICE) Misc Lancing Yes Check [facility] Device 7-28 blood ity of (EASY MINI 00:00: sugar [place] EJECT 00 twice a Medical LANCING day. E11.9 Branch DEVICE) Misc Lancing Yes Check [facility] Device 7-28 blood ity of (EASY MINI 00:00: sugar [place] EJECT 00 twice a Medical LANCING day. E11.9 Branch DEVICE) Misc Lancing Yes Check [facility] Device 7-28 blood ity of (EASY MINI 00:00: sugar [place] EJECT 00 twice a Medical LANCING day. E11.9 Branch DEVICE) Misc Lancing Yes Check [facility] Device 7-28 blood ity of (EASY MINI 00:00: sugar [place] EJECT 00 twice a Medical LANCING day. E11.9 Branch DEVICE) Misc Lancing Yes Check [facility] Device 7-28 blood ity of (EASY MINI 00:00: sugar [place] EJECT 00 twice a Medical LANCING day. E11.9 Branch DEVICE) Misc Lancing Yes Check [facility] Device 7-28 blood ity of (EASY MINI 00:00: sugar [place] EJECT 00 twice a Medical LANCING day. E11.9 Branch DEVICE) Misc Lancing 0 Yes Check [facility] Device 7-28 blood ity of (EASY MINI 00:00: sugar [place] EJECT 00 twice a Medical LANCING day. E11.9 Branch DEVICE) Misc Lancing Yes Check [facility] Device 7-28 blood ity of (EASY MINI 00:00: sugar [place] EJECT 00 twice a Medical LANCING day. E11.9 Branch DEVICE) Misc Lancing Yes Check [facility] Device 7-28 blood ity of (EASY MINI 00:00: sugar [place] EJECT 00 twice a Medical LANCING day. E11.9 Branch DEVICE) Misc Lancing Yes Check [facility] Device 7-28 blood ity of (EASY MINI 00:00: sugar [place] EJECT 00 twice a Medical LANCING day. E11.9 Branch DEVICE) Misc Lancing Yes Check [facility] Device 7-28 blood ity of (EASY MINI 00:00: sugar [place] EJECT 00 twice a Medical LANCING day. E11.9 Branch DEVICE) [facility] Blood-Gluco 2020-0 Yes [id number] Check Univers se Meter 7-27 sugars 2 ity of Kit 00:00: times a day. Dx Medical Code Branch E11.9. Brand per insurance. Blood-Gluco 2020-0 Yes [id number] Check Univers se Meter 7-27 sugars 2 ity of Kit 00:00: times a day. Dx Medical Code Branch E11.9. Brand per insurance. Blood-Gluco 1-0 Yes [id number] Check [facility] se Meter 7-27 sugars 2 ity of Kit 00:00: times a day. Dx Medical Code Branch E11.9. Brand per insurance. Blood-Gluco 2021-0 Yes [id number] Check [facility] se Meter 7-27 sugars 2 ity of Kit 00:00: times a day. Dx Medical Code Branch E11.9. Brand per insurance. Blood-Gluco 2021-0 Yes [id number] Check [facility] se Meter 7-27 sugars 2 ity of Kit 00:00: times a day. Dx Medical Code Branch E11.9. Brand per insurance. Blood-Gluco 2021-0 Yes [id number] Check [facility] se Meter 7-27 sugars 2 ity of Kit 00:00: times a day. Dx Medical Code Branch E11.9. Brand per insurance. Blood-Gluco 2021-0 Yes [id number] Check [facility] se Meter 7-27 sugars 2 ity of Kit 00:00: times a day. Dx Medical Code Branch E11.9. Brand per insurance. Blood-Gluco 2021-0 Yes [id number] Check [facility] se Meter 7-27 sugars 2 ity of Kit 00:00: times a day. Dx Medical Code Branch E11.9. Brand per insurance. Blood-Gluco 2021-0 Yes [id number] Check [facility] se Meter 7-27 sugars 2 ity of Kit 00:00: times a day. Dx Medical Code Branch E11.9. Brand per insurance. Blood-Gluco 2021-0 Yes [id number] Check [facility] se Meter 7-27 sugars 2 ity of Kit 00:00: times a day. Dx Medical Code Branch E11.9. Brand per insurance. Blood-Gluco 2021-0 Yes [id number] Check [facility] se Meter 7-27 sugars 2 ity of Kit 00:00: times a day. Dx Medical Code Branch E11.9. Brand per insurance. Blood-Gluco 2021-0 Yes [id number] Check [facility] se Meter 7-27 sugars 2 ity of Kit 00:00: times a day. Dx Medical Code Branch E11.9. Brand per insurance. Blood-Gluco 2021-0 Yes [id number] Check [facility] se Meter 7-27 sugars 2 ity of Kit 00:00: times a day. Dx Medical Code Branch E11.9. Brand per insurance. Blood-Gluco 2021-0 Yes [id number] Check [facility] se Meter 7-27 sugars 2 ity of Kit 00:00: times a day. Dx Medical Code Branch E11.9. Brand per insurance. Blood-Gluco 2021-0 Yes [id number] Check [facility] se Meter 7-27 sugars 2 ity of Kit 00:00: times a day. Dx Medical Code Branch E11.9. Brand per insurance. Blood-Gluco 2021-0 Yes [id number] Check [facility] se Meter 7-27 sugars 2 ity of Kit 00:00: times a . Dx Medical Code Branch E11.9. Brand per insurance. Tamsulosin Tamsulosin 2022- No 1{capsu QD Tamsulosin HCl 0.4 MG HCl 0.4 MG 05-19 le} HCl 0.4 MG 00:00: 00:00 00 :00 Tamsulosin Tamsulosin 2022- No 1{capsu QD Tamsulosin HCl 0.4 MG HCl 0.4 MG 05-19 le} HCl 0.4 MG 00:00: 00:00 00 :00 Tamsulosin Tamsulosin 2022- No 1{capsu QD Tamsulosin HCl 0.4 MG HCl 0.4 MG 05-19 le} HCl 0.4 MG 00:00: 00:00 00 :00 Tamsulosin Tamsulosin 2022- No 1{capsu QD Tamsulosin HCl 0.4 MG HCl 0.4 MG 05-19 le} HCl 0.4 MG 00:00: 00:00 00 :00 Tamsulosin Tamsulosin 2022- No 1{capsu QD Tamsulosin HCl 0.4 MG HCl 0.4 MG 05-19 le} HCl 0.4 MG 00:00: 00:00 00 :00 Tamsulosin Tamsulosin 2022- No 1{capsu QD Tamsulosin HCl 0.4 MG HCl 0.4 MG 05-19 le} HCl 0.4 MG 00:00: 00:00 00 :00 Tamsulosin Tamsulosin 2021- No 1{capsu QD Tamsulosin HCl 0.4 MG HCl 0.4 MG 05-19 le} HCl 0.4 MG 00:00: 00:00 00 :00 Tamsulosin Tamsulosin 2021- No 1{capsu QD Tamsulosin HCl 0.4 MG HCl 0.4 MG 05-19 le} HCl 0.4 MG 00:00: 00:00 00 :00 NATEGLINIDE 2021- No [id number] TOME 1 Univers 60 mg 04-11 TABLETA ity of tablet 00:00: 00:00 POR LA [place] 00 :00 BOCA 3 Medical VECES AL Branch TAMI ANTES DE LAS COMIDAS NATEGLINIDE 2021- No [id number] TOME 1 Univers 60 mg 04-11 TABLETA ity of tablet 00:00: 00:00 POR LA [place] 00 :00 BOCA 3 Medical VECES AL Branch TAMI ANTES DE LAS COMIDAS NATEGLINIDE 2021- No [id number] TOME 1 Univers 60 mg 04-11 TABLETA ity of tablet 00:00: 00:00 POR LA [place] 00 :00 BOCA 3 Medical VECES AL Branch TAMI ANTES DE LAS COMIDAS traMADol traMADol No 1{table QD traMADol HCl 50 MG HCl 50 MG t_as_ne HCl 50 MG eded} Floranex - Floranex - No Floranex - Carvedilol Carvedilol No 1{table BID Carvedilol 6.25 MG 6.25 MG t_with_ 6.25 MG food} Losartan Losartan No 1{table QD Losartan Potassium Potassium t} Potassium 100 MG 100 MG 100 MG Rosuvastati Rosuvastati No 1{table QD Rosuvastat n Calcium n Calcium t} in Calcium 20 MG 20 MG 20 MG Furosemide Furosemide No 1{table QD Furosemide 40 MG 40 MG t} 40 MG Floranex - Floranex - No Floranex - traMADol traMADol No 1{table QD traMADol HCl 50 MG HCl 50 MG t_as_ne HCl 50 MG eded} Nateglinide Nateglinide No 1{table TID Nateglinid 60 MG 60 MG t_befor e 60 MG e_meals } Eliquis 5 Eliquis 5 No Eliquis 5 MG MG MG Rosuvastati Rosuvastati No 1{table QD Rosuvastat n Calcium n Calcium t} in Calcium 20 MG 20 MG 20 MG Carvedilol Carvedilol No 1{table BID Carvedilol 6.25 MG 6.25 MG t_with_ 6.25 MG food} Losartan Losartan No 1{table QD Losartan Potassium Potassium t} Potassium 100 MG 100 MG 100 MG levoFLOXaci levoFLOXaci No 1{table QD levoFLOXac n 500 MG n 500 MG t} in 500 MG amLODIPine amLODIPine No 1{table QD amLODIPine Besylate 10 Besylate 10 t} Besylate MG MG 10 MG Eliquis 5 Eliquis 5 No Eliquis 5 MG MG MG amLODIPine amLODIPine No 1{table QD amLODIPine Besylate 10 Besylate 10 t} Besylate MG MG 10 MG Losartan Losartan No 1{table QD Losartan Potassium Potassium t} Potassium 100 MG 100 MG 100 MG Rosuvastati Rosuvastati No 1{table QD Rosuvastat n Calcium n Calcium t} in Calcium 20 MG 20 MG 20 MG Nateglinide Nateglinide No 1{table TID Nateglinid 60 MG 60 MG t_befor e 60 MG e_meals } Furosemide Furosemide No 1{table QD Furosemide 40 MG 40 MG t} 40 MG DULoxetine DULoxetine No 1{capsu QD DULoxetine HCl 60 MG HCl 60 MG le} HCl 60 MG Carvedilol Carvedilol No 1{table BID Carvedilol 6.25 MG 6.25 MG t_with_ 6.25 MG food} Floranex - Floranex - No Floranex - traMADol traMADol No 1{table QD traMADol HCl 50 MG HCl 50 MG t_as_ne HCl 50 MG eded} Eliquis 5 Eliquis 5 No Eliquis 5 MG MG MG amLODIPine amLODIPine No 1{table QD amLODIPine Besylate 10 Besylate 10 t} Besylate MG MG 10 MG Losartan Losartan No 1{table QD Losartan Potassium Potassium t} Potassium 100 MG 100 MG 100 MG Rosuvastati Rosuvastati No 1{table QD Rosuvastat n Calcium n Calcium t} in Calcium 20 MG 20 MG 20 MG Nateglinide Nateglinide No 1{table TID Nateglinid 60 MG 60 MG t_befor e 60 MG e_meals } Furosemide Furosemide No 1{table QD Furosemide 40 MG 40 MG t} 40 MG DULoxetine DULoxetine No 1{capsu QD DULoxetine HCl 60 MG HCl 60 MG le} HCl 60 MG Carvedilol Carvedilol No 1{table BID Carvedilol 6.25 MG 6.25 MG t_with_ 6.25 MG food} Floranex - Floranex - No Floranex - traMADol traMADol No 1{table QD traMADol HCl 50 MG HCl 50 MG t_as_ne HCl 50 MG eded} Eliquis 5 Eliquis 5 No Eliquis 5 MG MG MG amLODIPine amLODIPine No 1{table QD amLODIPine Besylate 10 Besylate 10 t} Besylate MG MG 10 MG Losartan Losartan No 1{table QD Losartan Potassium Potassium t} Potassium 100 MG 100 MG 100 MG Rosuvastati Rosuvastati No 1{table QD Rosuvastat n Calcium n Calcium t} in Calcium 20 MG 20 MG 20 MG Nateglinide Nateglinide No 1{table TID Nateglinid 60 MG 60 MG t_befor e 60 MG e_meals } Furosemide Furosemide No 1{table QD Furosemide 40 MG 40 MG t} 40 MG DULoxetine DULoxetine No 1{capsu QD DULoxetine HCl 60 MG HCl 60 MG le} HCl 60 MG Carvedilol Carvedilol No 1{table BID Carvedilol 6.25 MG 6.25 MG t_with_ 6.25 MG food} Floranex - Floranex - No Floranex - traMADol traMADol No 1{table QD traMADol HCl 50 MG HCl 50 MG t_as_ne HCl 50 MG eded} amLODIPine amLODIPine No 1{table QD amLODIPine Besylate 10 Besylate 10 t} Besylate MG MG 10 MG Furosemide Furosemide No 1{table QD Furosemide 40 MG 40 MG t} 40 MG Losartan Losartan No 1{table QD Losartan Potassium Potassium t} Potassium 100 MG 100 MG 100 MG Eliquis 5 Eliquis 5 No Eliquis 5 MG MG MG levoFLOXaci levoFLOXaci No 1{table QD levoFLOXac n 500 MG n 500 MG t} in 500 MG traMADol traMADol No 1{table QD traMADol HCl 50 MG HCl 50 MG t_as_ne HCl 50 MG eded} Nateglinide Nateglinide No 1{table TID Nateglinid 60 MG 60 MG t_befor e 60 MG e_meals } Carvedilol Carvedilol No 1{table BID Carvedilol 6.25 MG 6.25 MG t_with_ 6.25 MG food} Floranex - Floranex - No Floranex - Rosuvastati Rosuvastati No 1{table QD Rosuvastat n Calcium n Calcium t} in Calcium 20 MG 20 MG 20 MG levoFLOXaci levoFLOXaci No 1{table QD levoFLOXac n 500 MG n 500 MG t} in 500 MG Losartan Losartan No 1{table QD Losartan Potassium Potassium t} Potassium 100 MG 100 MG 100 MG Furosemide Furosemide No 1{table QD Furosemide 40 MG 40 MG t} 40 MG traMADol traMADol No 1{table QD traMADol HCl 50 MG HCl 50 MG t_as_ne HCl 50 MG eded} amLODIPine amLODIPine No 1{table QD amLODIPine Besylate 10 Besylate 10 t} Besylate MG MG 10 MG Carvedilol Carvedilol No 1{table BID Carvedilol 6.25 MG 6.25 MG t_with_ 6.25 MG food} Floranex - Floranex - No Floranex - Rosuvastati Rosuvastati No 1{table QD Rosuvastat n Calcium n Calcium t} in Calcium 20 MG 20 MG 20 MG Eliquis 5 Eliquis 5 No Eliquis 5 MG MG MG Nateglinide Nateglinide No 1{table TID Nateglinid 60 MG 60 MG t_befor e 60 MG e_meals } Floranex - Floranex - No Floranex - amLODIPine amLODIPine No 1{table QD amLODIPine Besylate 10 Besylate 10 t} Besylate MG MG 10 MG levoFLOXaci levoFLOXaci No 1{table QD levoFLOXac n 500 MG n 500 MG t} in 500 MG Furosemide Furosemide No 1{table QD Furosemide 40 MG 40 MG t} 40 MG Eliquis 5 Eliquis 5 No Eliquis 5 MG MG MG traMADol traMADol No 1{table QD traMADol HCl 50 MG HCl 50 MG t_as_ne HCl 50 MG eded} Carvedilol Carvedilol No 1{table BID Carvedilol 6.25 MG 6.25 MG t_with_ 6.25 MG food} Nateglinide Nateglinide No 1{table TID Nateglinid 60 MG 60 MG t_befor e 60 MG e_meals } Losartan Losartan No 1{table QD Losartan Potassium Potassium t} Potassium 100 MG 100 MG 100 MG Rosuvastati Rosuvastati No 1{table QD Rosuvastat n Calcium n Calcium t} in Calcium 20 MG 20 MG 20 MG Floranex - Floranex - No Floranex - amLODIPine amLODIPine No 1{table QD amLODIPine Besylate 10 Besylate 10 t} Besylate MG MG 10 MG Carvedilol Carvedilol No 1{table BID Carvedilol 6.25 MG 6.25 MG t_with_ 6.25 MG food} Eliquis 5 Eliquis 5 No Eliquis 5 MG MG MG Rosuvastati Rosuvastati No 1{table QD Rosuvastat n Calcium n Calcium t} in Calcium 20 MG 20 MG 20 MG Furosemide Furosemide No 1{table QD Furosemide 40 MG 40 MG t} 40 MG levoFLOXaci levoFLOXaci No 1{table QD levoFLOXac n 500 MG n 500 MG t} in 500 MG Losartan Losartan No 1{table QD Losartan Potassium Potassium t} Potassium 100 MG 100 MG 100 MG Nateglinide Nateglinide No 1{table TID Nateglinid 60 MG 60 MG t_befor e 60 MG e_meals } traMADol traMADol No 1{table QD traMADol HCl 50 MG HCl 50 MG t_as_ne HCl 50 MG eded} Nateglinide Nateglinide No 1{table TID Nateglinid 60 MG 60 MG t_befor e 60 MG e_meals } levoFLOXaci levoFLOXaci No 1{table QD levoFLOXac n 500 MG n 500 MG t} in 500 MG Eliquis 5 Eliquis 5 No Eliquis 5 MG MG MG amLODIPine amLODIPine No 1{table QD amLODIPine Besylate 10 Besylate 10 t} Besylate MG MG 10 MG Furosemide Furosemide No 1{table QD Furosemide 40 MG 40 MG t} 40 MG Immunizations Ordered Filled Immunization Date Status Comments [facility] e Immunization Name Name Influenza Virus 2021-08-22 Completed [facility] Vaccine,quad 00:00:[facility] [place] [facility] 65+ Influenza Virus 2021-08-22 Completed [facility]it y of Vaccine,quad 00:00:00 [place] [facility] 65+ Influenza Virus 2021-08-22 Completed [facility]it y of Vaccine,quad 00:00:00 [place] [facility] 65+ Influenza Virus 2021-08-22 Completed [facility]it y of Vaccine,quad 00:00:00 [place] [facility] 65+ Influenza Virus 2021-08-22 Completed [facility]it y of Vaccine,quad 00:00:00 [place] [facility] 65+ Influenza Virus 2021-08-22 Completed [facility]it y of Vaccine,quad 00:00:00 [place] [facility] 65+ Influenza Virus 2021-08-22 Completed [facility]it y of Vaccine,quad 00:00:00 [place] [facility] 65+ Influenza Virus 2021-08-22 Completed [facility]it y of Vaccine,quad 00:00:00 [place] [facility] 65+ Influenza Virus 2021-08-22 Completed [facility]it y of Vaccine,quad 00:00:00 [place] [facility] 65+ Influenza Virus 2021-08-22 Completed [facility]it y of Vaccine,quad 00:00:00 [place] [facility] 65+ Influenza Virus 2021-08-22 Completed [facility]it y of Vaccine,quad 00:00:00 [place] [facility] 65+ Influenza Virus 2021-08-22 Completed [facility]it y of Vaccine,quad 00:00:00 [place] [facility] 65+ Influenza Virus 2021-08-22 Completed Universit y of Vaccine,quad 00:00:00 [place] [facility] 65+ Influenza Virus 2021-08-22 Completed Universit y of Vaccine,quad 00:00:00 [place] [facility] 65+ Influenza Virus 2021-08-22 Completed Universit y of Vaccine,quad 00:00:00 [place] [facility] 65+ Influenza Virus 2021-08-22 Completed Universit y of Vaccine,quad 00:00:00 [place] [facility] 65+ SARS-COV-2 COVID-19 2021-05-06 Completed Unive rsity of PFIZER VACCINE 00:00:00 [facility] SARS-COV-2 COVID-19 2021-05-06 Completed Unive rsity of PFIZER VACCINE 00:00:00 [facility] [place] SARS-COV-2 COVID-19 2021-05-06 Completed Unive rsity of PFIZER VACCINE 00:00:00 [facility] [place] SARS-COV-2 COVID-19 2021-05-06 Completed Unive rsity of PFIZER VACCINE 00:00:00 [facility] [place] SARS-COV-2 COVID-19 2021-05-06 Completed Unive rsity of PFIZER VACCINE 00:00:00 [facility] [place] SARS-COV-2 COVID-19 2021-05-06 Completed Unive rsity of PFIZER VACCINE 00:00:00 [facility] SARS-COV-2 COVID-19 2021-05-06 Completed Unive rsity of PFIZER VACCINE 00:00:00 [facility] [facility] SARS-COV-2 COVID-19 2021-05-06 Completed Unive rsity of PFIZER VACCINE 00:00:00 [facility] SARS-COV-2 COVID-19 2021-05-06 Completed Unive rsity of PFIZER VACCINE 00:00:00 [facility] SARS-COV-2 COVID-19 2021-05-06 Completed Unive rsity of PFIZER VACCINE 00:00:00 [facility] SARS-COV-2 COVID-19 2021-05-06 Completed Unive rsity of PFIZER VACCINE 00:00:00 [facility] SARS-COV-2 COVID-19 2021-05-06 Completed Unive rsity of PFIZER VACCINE 00:00:00 [facility] SARS-COV-2 COVID-19 2021-05-06 Completed Unive rsity of PFIZER VACCINE 00:00:00 [facility] SARS-COV-2 COVID-19 2021-05-06 Completed Unive rsity of PFIZER VACCINE 00:00:00 [facility] SARS-COV-2 COVID-19 2021-05-06 Completed Unive rsity of PFIZER VACCINE 00:00:00 [facility] SARS-COV-2 COVID-19 2021-05-06 Completed Unive rsity of PFIZER VACCINE 00:00:00 [facility] Influenza High Dose 2020-09-13 Completed Unive rsity of Quad 00:00:00 [facility] Influenza High Dose 2020-09-13 Completed Unive rsity of Quad 00:00:00 [facility] Influenza High Dose 2020-09-13 Completed Unive rsity of Quad 00:00:00 [facility] Influenza High Dose 2020-09-13 Completed Unive rsity of Quad 00:00:00 [facility] Influenza High Dose 2020-09-13 Completed Unive rsity of Quad 00:00:00 [facility] Influenza High Dose 2020-09-13 Completed Unive rsity of Quad 00:00:00 [facility] Influenza High Dose 2020-09-13 Completed Unive rsity of Quad 00:00:00 [facility] Influenza High Dose 2020-09-13 Completed Unive rsity of Quad 00:00:00 [facility] Influenza High Dose 2020-09-13 Completed Unive rsity of Quad 00:00:00 [facility] Influenza High Dose 2020-09-13 Completed Unive rsity of Quad 00:00:00 [facility] Influenza High Dose 2020-09-13 Completed Unive rsity of Quad 00:00:00 [facility] Influenza High Dose 2020-09-13 Completed Unive rsity of Quad 00:00:00 [facility] Influenza High Dose 2020-09-13 Completed Unive rsity of Quad 00:00:00 [facility] Influenza High Dose 2020-09-13 Completed Unive rsity of Quad 00:00:00 [facility] Influenza High Dose 2020-09-13 Completed Unive rsity of Quad 00:00:00 [facility] Influenza High Dose 2020-09-13 Completed Unive rsity of Quad 00:00:00 [facility] Influenza High Dose 2019 Completed Unive rsity of 00:00:00 [facility] Influenza High Dose 2019 Completed Unive rsity of 00:00:00 [facility] Influenza High Dose 2019 Completed Unive rsity of 00:00:00 [facility] Influenza High Dose 2019 Completed Unive rsity of 00:00:00 [facility] Influenza High Dose 2019 Completed Unive rsity of 00:00:00 [facility] Influenza High Dose 2019 Completed Unive rsity of 00:00:00 [facility] Influenza High Dose 2019 Completed Unive rsity of 00:00:00 [facility] Influenza High Dose 2019 Completed Unive rsity of 00:00:00 [facility] Influenza High Dose 2019 Completed Unive rsity of 00:00:00 [facility] Influenza High Dose 2019 Completed Unive rsity of 00:00:00 [facility] Influenza High Dose 2019 Completed Unive rsity of 00:00:00 [facility] Influenza High Dose 2019 Completed Unive rsity of 00:00:00 [facility] Influenza High Dose 2019 Completed Unive rsity of 00:00:00 [facility] Influenza High Dose 2019 Completed Unive rsity of 00:00:00 [facility] Influenza High Dose 2019 Completed Unive rsity of 00:00:00 [facility] Influenza High Dose 2019 Completed Unive rsity of 00:00:00 [facility] Pneumococcal 2019-07-23 Completed University o f Polysaccharide, 00:00:00 [place] [facility] PPSV23 (PNEUMOVAX) Branch Pneumococcal 2019-07-23 Completed University o f Polysaccharide, 00:00:00 [place] [facility] PPSV23 (PNEUMOVAX) Branch Pneumococcal 2019-07-23 Completed University o f Polysaccharide, 00:00:00 [place] [facility] PPSV23 (PNEUMOVAX) Branch Pneumococcal 2019-07-23 Completed University o f Polysaccharide, 00:00:00 [place] [facility] PPSV23 (PNEUMOVAX) Branch Pneumococcal 2019-07-23 Completed University o f Polysaccharide, 00:00:00 [place] [facility] PPSV23 (PNEUMOVAX) Branch Pneumococcal 2019-07-23 Completed University o f Polysaccharide, 00:00:00 [place] [facility] PPSV23 (PNEUMOVAX) Branch Pneumococcal 2019-07-23 Completed University o f Polysaccharide, 00:00:00 [place] [facility] PPSV23 (PNEUMOVAX) Branch Pneumococcal 2019-07-23 Completed University o f Polysaccharide, 00:00:00 [place] [facility] PPSV23 (PNEUMOVAX) Branch Pneumococcal 2019-07-23 Completed University o f Polysaccharide, 00:00:00 [place] [facility] PPSV23 (PNEUMOVAX) Branch Pneumococcal 2019-07-23 Completed University o f Polysaccharide, 00:00:00 [place] [facility] PPSV23 (PNEUMOVAX) Branch Pneumococcal 2019-07-23 Completed University o f Polysaccharide, 00:00:00 [place] [facility] PPSV23 (PNEUMOVAX) Branch Pneumococcal 2019-07-23 Completed University o f Polysaccharide, 00:00:00 [place] [facility] PPSV23 (PNEUMOVAX) Branch Pneumococcal 2019-07-23 Completed University o f Polysaccharide, 00:00:00 [place] [facility] PPSV23 (PNEUMOVAX) Branch Pneumococcal 2019-07-23 Completed University o f Polysaccharide, 00:00:00 [place] [facility] PPSV23 (PNEUMOVAX) Branch Pneumococcal 2019-07-23 Completed University o f Polysaccharide, 00:00:00 [place] [facility] PPSV23 (PNEUMOVAX) Branch Pneumococcal 2019-07-23 Completed University o f Polysaccharide, 00:00:00 [facility] ica PPSV23 (PNEUMOVAX) Branch Influenza High Dose 2019-02-19 Completed Unive rsity of 00:00:00 [facility] Influenza High Dose 2019-02-19 Completed Unive rsity of 00:00:00 [facility] Influenza High Dose 2019-02-19 Completed Unive rsity of 00:00:00 [facility] Influenza High Dose 2019-02-19 Completed Unive rsity of 00:00:00 [facility] Influenza High Dose 2019-02-19 Completed Unive rsity of 00:00:00 [facility] Influenza High Dose 2019-02-19 Completed Unive rsity of 00:00:00 [facility] Influenza High Dose 2019-02-19 Completed Unive rsity of 00:00:00 [facility] Influenza High Dose 2019-02-19 Completed Unive rsity of 00:00:00 [facility] Influenza High Dose 2019-02-19 Completed Unive rsity of 00:00:00 [facility] Influenza High Dose 2019-02-19 Completed Unive rsity of 00:00:00 [facility] Influenza High Dose 2019-02-19 Completed Unive rsity of 00:00:00 [facility] Influenza High Dose 2019-02-19 Completed Unive rsity of 00:00:00 [facility] Influenza High Dose 2019-02-19 Completed Unive rsity of 00:00:00 [facility] Influenza High Dose 2019-02-19 Completed Unive rsity of 00:00:00 [facility] Influenza High Dose 2019-02-19 Completed Unive rsity of 00:00:00 [facility] Influenza High Dose 2019-02-19 Completed Unive rsity of 00:00:00 [facility] Pneumococcal 13 2018-04-23 Completed Universit y of Conjugate, PCV13 00:00:00 [facility] dical (Prevnar 13) Branch TDAP 2018-04-23 Completed University of 00:00:00 [facility] Pneumococcal 13 2018-04-23 Completed Universit y of Conjugate, PCV13 00:00:00 [facility] dical (Prevnar 13) Branch TDAP 2018-04-23 Completed University of 00:00:00 [facility] Pneumococcal 13 2018-04-23 Completed Universit y of Conjugate, PCV13 00:00:00 [facility] dical (Prevnar 13) Branch [facility] 2018-04-23 Completed University of 00:00:00 [facility] Pneumococcal 13 2018-04-23 Completed Universit y of Conjugate, PCV13 00:00:00 [place] [facility] (Prevnar 13) Branch [facility] 2018-04-23 Completed University of 00:00:00 [facility] Pneumococcal 13 2018-04-23 Completed Universit y of Conjugate, PCV13 00:00:00 [facility] dical (Prevnar 13) Branch [facility] 2018-04-23 Completed University of 00:00:00 [facility] Pneumococcal 13 2018-04-23 Completed Universit y of Conjugate, PCV13 00:00:00 [place] [facility] (Prevnar 13) Branch [facility] 2018-04-23 Completed University of 00:00:00 [facility] Pneumococcal 13 2018-04-23 Completed Universit y of Conjugate, PCV13 00:00:00 [facility] dical (Prevnar 13) Branch [facility] 2018-04-23 Completed University of 00:00:00 [facility] Pneumococcal 13 2018-04-23 Completed Universit y of Conjugate, PCV13 00:00:00 [facility] dical (Prevnar 13) Branch [facility] 2018-04-23 Completed University of 00:00:00 [facility] Pneumococcal 13 2018-04-23 Completed Universit y of Conjugate, PCV13 00:00:00 [facility] dical (Prevnar 13) Branch [facility] 2018-04-23 Completed University of 00:00:00 [facility] Pneumococcal 13 2018-04-23 Completed Universit y of Conjugate, PCV13 00:00:00 [facility] dical (Prevnar 13) Branch [facility] 2018-04-23 Completed University of 00:00:00 [facility] Pneumococcal 13 2018-04-23 Completed Universit y of Conjugate, PCV13 00:00:00 [place] [facility] (Prevnar 13) Branch [facility] 2018-04-23 Completed University of 00:00:00 [facility] Pneumococcal 13 2018-04-23 Completed Universit y of Conjugate, PCV13 00:00:00 [facility] dical (Prevnar 13) Branch [facility] 2018-04-23 Completed University of 00:00:00 [facility] Pneumococcal 13 2018-04-23 Completed Universit y of Conjugate, PCV13 00:00:00 [facility] dical (Prevnar 13) Branch [facility] 2018-04-23 Completed University of 00:00:00 [facility] Pneumococcal 13 2018-04-23 Completed Universit y of Conjugate, PCV13 00:00:00 [facility] dical (Prevnar 13) Branch TDAP 2018-04-23 Completed University of 00:00:00 [facility] Pneumococcal 13 2018-04-23 Completed Universit y of Conjugate, PCV13 00:00:00 [facility] dical (Prevnar 13) Branch AP 2018-04-23 Completed University of 00:00:00 [facility] Pneumococcal 13 2018-04-23 Completed Universit y of Conjugate, PCV13 00:00:00 [facility] dical (Prevnar 13) Branch [facility] 2018-04-23 Completed University of 00:00:00 [facility] Influenza Virus 2017-09-13 Completed Universit y of Vaccine Quad IM 3+ 00:00:00 [facility] Influenza Virus 2017-09-13 Completed Universit y of Vaccine [place] IM 3+ 00:00:00 [facility] Influenza Virus 2017-09-13 Completed Universit y of Vaccine [place] IM 3+ 00:00:00 [facility] Influenza Virus 2017-09-13 Completed Universit y of Vaccine [place] IM 3+ 00:00:00 [facility] Influenza Virus 2017-09-13 Completed Universit y of Vaccine [place] IM 3+ 00:00:00 [facility] Influenza Virus 2017-09-13 Completed Universit y of Vaccine [place] IM 3+ 00:00:00 [facility] Influenza Virus 2017-09-13 Completed Universit y of Vaccine [place] IM 3+ 00:00:00 [facility] Influenza Virus 2017-09-13 Completed Universit y of Vaccine [place] IM 3+ 00:00:00 [facility] Influenza Virus 2017-09-13 Completed Universit y of Vaccine [place] IM 3+ 00:00:00 [facility] Influenza Virus 2017-09-13 Completed Universit y of Vaccine [place] IM 3+ 00:00:00 [facility] Influenza Virus 2017-09-13 Completed Universit y of Vaccine [place] IM 3+ 00:00:00 [facility] Influenza Virus 2017-09-13 Completed Universit y of Vaccine [place] IM 3+ 00:00:00 [facility] Influenza Virus 2017-09-13 Completed Universit y of Vaccine [place] IM 3+ 00:00:00 [facility] Influenza Virus 2017-09-13 Completed Universit y of Vaccine [place] IM 3+ 00:00:00 [facility] Influenza Virus 2017-09-13 Completed Universit y of Vaccine [place] IM 3+ 00:00:00 [facility] Influenza Virus 2017-09-13 Completed Universit y of Vaccine [place] IM 3+ 00:00:00 [facility] Influenza Virus 2016-11-19 Completed Universit y of Vaccine [place] IM 3+ 00:00:00 [facility] Influenza Virus 2016-11-19 Completed Universit y of Vaccine [place] IM 3+ 00:00:00 [facility] Influenza Virus 2016-11-19 Completed Universit y of Vaccine Quad IM 3+ 00:00:00 [facility] Influenza Virus 2016-11-19 Completed Universit y of Vaccine [place] IM 3+ 00:00:00 [facility] Influenza Virus 2016-11-19 Completed Universit y of Vaccine [place] IM 3+ 00:00:00 [facility] Influenza Virus 2016-11-19 Completed Universit y of Vaccine [place] IM 3+ 00:00:00 [facility] Influenza Virus 2016-11-19 Completed Universit y of Vaccine [place] IM 3+ 00:00:00 [facility] Influenza Virus 2016-11-19 Completed Universit y of Vaccine Quad IM 3+ 00:00:00 [facility] Influenza Virus 2016-11-19 Completed Universit y of Vaccine [place] IM 3+ 00:00:00 [facility] Influenza Virus 2016-11-19 Completed Universit y of Vaccine [place] IM 3+ 00:00:00 [facility] Influenza Virus 2016-11-19 Completed Universit y of Vaccine [place] IM 3+ 00:00:00 [facility] Influenza Virus 2016-11-19 Completed Universit y of Vaccine [place] IM 3+ 00:00:00 [facility] Influenza Virus 2016-11-19 Completed Universit y of Vaccine Quad IM 3+ 00:00:00 [facility] Influenza Virus 2016-11-19 Completed Universit y of Vaccine Quad IM 3+ 00:00:00 [facility] Influenza Virus 2016-11-19 Completed Universit y of Vaccine [place] IM 3+ 00:00:00 [facility] Influenza Virus 2016-11-19 Completed Universit y of Vaccine Quad IM 3+ 00:00:00 [facility] Influenza Virus 2015-08-18 Completed Universit y of Vaccine Quad IM 3+ 00:00:00 [facility] Influenza Virus 2015-08-18 Completed Universit y of Vaccine Quad IM 3+ 00:00:00 [facility] Influenza Virus 2015-08-18 Completed Universit y of Vaccine Quad IM 3+ 00:00:00 [facility] Influenza Virus 2015-08-18 Completed Universit y of Vaccine Quad IM 3+ 00:00:00 [facility] Influenza Virus 2015-08-18 Completed Universit y of Vaccine Quad IM 3+ 00:00:00 [facility] Influenza Virus 2015-08-18 Completed Universit y of Vaccine Quad IM 3+ 00:00:00 [facility] Influenza Virus 2015-08-18 Completed Universit y of Vaccine Quad IM 3+ 00:00:00 [facility] Influenza Virus 2015-08-18 Completed Universit y of Vaccine Quad IM 3+ 00:00:00 [facility] Influenza Virus 2015-08-18 Completed Universit y of Vaccine Quad IM 3+ 00:00:00 [facility] Influenza Virus 2015-08-18 Completed Universit y of Vaccine Quad IM 3+ 00:00:00 [facility] Influenza Virus 2015-08-18 Completed Universit y of Vaccine Quad IM 3+ 00:00:00 [facility] Influenza Virus 2015-08-18 Completed Universit y of Vaccine Quad IM 3+ 00:00:00 [facility] Influenza Virus 2015-08-18 Completed Universit y of Vaccine Quad IM 3+ 00:00:00 [facility] Influenza Virus 2015-08-18 Completed Universit y of Vaccine Quad IM 3+ 00:00:00 [facility] Influenza Virus 2015-08-18 Completed Universit y of Vaccine Quad IM 3+ 00:00:00 [facility] Influenza Virus 2015-08-18 Completed Universit y of Vaccine Quad IM 3+ 00:00:00 [facility] Influenza Virus 2007-10-21 Completed Universit y of Vaccine 00:00:00 [facility] Influenza Virus 2007-10-21 Completed Universit y of Vaccine 00:00:00 [facility] Influenza Virus 2007-10-21 Completed Universit y of Vaccine 00:00:00 [facility] Influenza Virus 2007-10-21 Completed Universit y of Vaccine 00:00:00 [facility] Influenza Virus 2007-10-21 Completed Universit y of Vaccine 00:00:00 [facility] Influenza Virus 2007-10-21 Completed Universit y of Vaccine 00:00:00 [facility] Influenza Virus 2007-10-21 Completed Universit y of Vaccine 00:00:00 [facility] Influenza Virus 2007-10-21 Completed Universit y of Vaccine 00:00:00 [facility] Influenza Virus 2007-10-21 Completed Universit y of Vaccine 00:00:00 [facility] Influenza Virus 2007-10-21 Completed Universit y of Vaccine 00:00:00 [facility] Influenza Virus 2007-10-21 Completed Universit y of Vaccine 00:00:00 [facility] Influenza Virus 2007-10-21 Completed Universit y of Vaccine 00:00:00 [facility] Influenza Virus 2007-10-21 Completed Universit y of Vaccine 00:00:00 [facility] Influenza Virus 2007-10-21 Completed Universit y of Vaccine 00:00:00 [facility] Influenza Virus 2007-10-21 Completed Universit y of Vaccine 00:00:00 [facility] Influenza Virus 2007-10-21 Completed Universit y of Vaccine 00:00:00 [facility] Vital Signs Vital Name Observation Time Observation Value Comments Source height 2022-04-05 08:15:00 63 [in_i] [facility] weight 2022-04-05 08:15:00 269.6 [lb_av] [facility] temperature 2022-04-05 08:15:00 97.7 [degF] [facility] bmi 2022-04-05 08:15:00 47.75 kg/m2 [facility] oximetry 2022-04-05 08:15:00 99 % [facility] respiratory rate 2022-04-05 08:15:00 16 /min Comm on [facility] blood pressure 2022-04-05 08:15:00 147 mm[Hg] [facility] - systolic [facility] blood pressure 2022-04-05 08:15:00 82 mm[Hg] Common [facility] - diastolic [facility] height 2022-01-10 08:00:00 63 [in_i] Common S [facility] weight 2022-01-10 08:00:00 265 [lb_av] [facility] temperature 2022-01-10 08:00:00 97.7 [degF] [facility] bmi 2022-01-10 08:00:00 46.94 kg/m2 Common S [facility] oximetry 2022-01-10 08:00:00 98 % Common [facility] respiratory rate 2022-01-10 08:00:00 18 /min Comm on [facility] blood pressure 2022-01-10 08:00:00 145 mm[Hg] Common [facility] - systolic [facility] blood pressure 2022-01-10 08:00:00 68 mm[Hg] [facility] - [facility] height 2021-05-19 11:20:00 63 [in_i] Common [facility] weight 2021-05-19 11:20:00 254.8 [lb_av] [facility] temperature 2021-05-19 11:20:00 94 [degF] Common S [facility] bmi 2021-05-19 11:20:00 45.13 kg/m2 [facility] oximetry 2021-05-19 11:20:00 95 % Common S [facility] blood pressure 2021-05-19 11:20:00 157 mm[Hg] [facility] - systolic [facility] blood pressure 2021-05-19 11:20:00 70 mm[Hg] [facility] - diastolic [facility] height 2021-04-19 11:20:00 63 [in_i] Common [facility] weight 2021-04-19 11:20:00 254.8 [lb_av] [facility] temperature 2021-04-19 11:20:00 94 [degF] Common S pirit [facility] bmi 2021-04-19 11:20:00 45.13 kg/m2 Common S pirit - [facility] oximetry 2021-04-19 11:20:00 98 % Common S pirit - [facility] blood pressure 2021-04-19 11:20:00 146 mm[Hg] [facility] - systolic [facility] blood pressure 2021-04-19 11:20:00 66 mm[Hg] Common [facility] - diastolic [facility] Procedures Procedure Date / Time Performing Clinician Source Performed AUTHORIZATION FOR 2022-10-30 06:01:00 Doctor Unassigned, No [facility] RELEASE OF PHI Name Medical Branch Encounters Start End Encounter Admission Attending Care Care Encounter Source Date/Time Date/Time Type Type Clinicians Facility Department ID 2022-09-18 Outpatient [facility], STLMLC STLMLC [id number] Common 11:26:02 Gerry [facility] 2022-04-04 Outpatient Christian, STLMLC STLMLC [id number] Common 10:08:01 Gerry [facility] 2022-01-10 Outpatient STLMLC STLMLC [id number] Common 07:43:00 [facility] 2021-12-06 Outpatient STLMLC STLMLC [id number] Common 13:12:33 [id number] [facility] 2023-06-13 2023-06-13 [place], [facility] [id number] Univers 00:00:00 00:00:00 Pat [place] [id number] [id number] [phone] [place] 2023-05-06 2023-05-06 [place], [facility] [id number] [facility] 00:00:00 00:00:00 Pat [place] [id number] ity of [facility] [id number] [id number] [address] 2023-04-01 2023-04-01 [place], [facility] [id number] Univers 00:00:00 00:00:00 Pat [place] [id number] ity of [facility] [id number] [id number] N[place] dical NAL [address] [facility] 2023-03-09 2023-03-09 [facility] [id number] Univers 00:00:00 00:00:00 Pat [place] [id number] ity of [facility] [id number] [phone] N[place] dical NAL 231 [facility] 2023-01-21 2023-01-21 Outpatient [facility] [id number] [facility] 00:00:00 00:00:00 [id number] [facility] 2023-01-21 2023-01-21 Outpatient Hunt_A [facility] [id number] Devoted 00:00:00 00:00:00 [id number] Medica l Group 2022-11-01 2022-11-01 [facility]phone [facility] 1.2.840.114 [id number] Univers 00:00:00 00:00:00 Mayte ROSA 350.1.13.10 ity of [facility] [place] [phone] [facility] 044 [facility] 2022-10-30 2022-10-30 Orders Doctor PATRICIA 1.2.840.114 [id number] Univers 00:00:00 00:00:00 Only Unassigned, BUDDY 350.1.13.10 ity of [place] [facility] 4.2.7.2.686 [place]ember[place] as [phone] [address] 2022-10-19 2022-10-19 Telephone [facility] 1.2.840.114 [id number] Univers 00:00:00 00:00:00 Ognatalieu ANGLELAURYN 350.1.13.10 ity of [facility] 4.2.7.2.[place] [phone] Nv dical NAL 044 [facility] 2022-09-27 2022-09-27 Outpatient Ogbechie_L [facility] 1146 [id number] Devoted 00:00:00 00:00:00 [id number] Medica l Group 2022-09-26 2022-09-26 Outpatient Conroy_R [facility] [id number] Devoted 00:00:00 00:00:00 [id number] Medica l Group 2022-09-25 2022-09-25 Refill [facility] 1.2.840.114 [id number] Univers 00:00:00 00:00:00 Pat A [place] 350.1.13.10 ity of [facility] 4.2.[place].2.[place] [phone] Nv dical NAL [address] [place] [address] 2022-08-17 2022-08-17 Outpatient Conroy_R [facility] [id number] - Devoted 00:00:00 00:00:00 Medica l Group 2022-08-09 2022-08-09 [facility] 1.2.840.114 [id number] Univers 00:00:00 00:00:00 Pat A [place] 350.1.13.10 ity of [facility] 4.2.[place] [phone] Nv dical NAL [address] [place] [address] 2022-07-23 2022-07-23 [facility] 1.2.840.114 [id number] Univers 00:00:00 00:00:00 Pat A [place] 350.1.13.10 ity of [facility] 4.2.[place].2.[place] [phone] Nv dical NAL [address] [place] [address] 2022-07-13 2022-07-13 [facility] [place] 1.2.840.114 [id number] Univers 00:00:00 00:00:00 Pat A [place] 350.1.13.10 ity of [facility] 4.2.7.2.[place] [phone] [address] 2022-07-04 2022-07-04 Outpatient R CHACE JOHNSON [facility] [id number] Univers 09:00:00 09:00:00 CHACE JOHNSON ity of [facility] 2022-06-20 2022-06-20 Outpatient DMG DM [id number] Devoted 00:00:00 00:00:00 [id number] Medica l Group 2022-06-17 2022-06-17 [facility] 1.2.840.114 [id number] Univers 00:00:00 00:00:00 Pat ROSA 350.1.13.10 ity of [place].2.[place] [phone] [address] 2022-06-10 2022-06-10 [facility] 1.2.840.114 [id number] Univers 00:00:00 00:00:00 Antony ROSA 350.1.13.10 i ty of [place].2.[place] [phone] [address] 2022-06-05 2022-06-05 [facility] [id number] Univers 10:40:00 10:40:00 PAT duron [facility] 2022-05-31 2022-05-31 Telephone [facility] 1.2.840.114 [id number] Univers 00:00:00 00:00:00 Pat ROSA 350.1.13.10 ity of [place] [phone] [address] 2022-05-31 2022-05-31 Orders Doctor GOMEZ 1.2.840.114 [id number] Univers 00:00:00 00:00:00 Only Unassigned, BUDDY 350.1.13.10 ity of [place] [facility] 4.2.7.2.686 [place] as [phone] [address] 2022-05-29 2022-05-29 (TEL) STLMLC STLMLC [id number] Co mmon 00:00:00 00:00:00 [facility] 2022-05-29 2022-05-29 (TEL) STLMLC STLMLC [id number] Co mmon 00:00:00 00:00:00 [facility] 2022-05-25 2022-05-25 Outpatient DMG [facility] [id number] Devoted 03:20:00 03:20:00 [id number] Medica l Group 2022-05-20 2022-05-20 Refill [facility] 1.2.840.114 [id number] Univers 00:00:00 00:00:00 Pat ROSA 350.1.13.10 ity of [facility] 4.2.7.2.[place] [phone] Nv dical [address] 2022-05-11 2022-05-11 Telephone [facility] 1.2.840.114 [id number] Univers 00:00:00 00:00:00 Pat ROSA 350.1.13.10 ity of [place].7.2.[place] [phone] Nv dic[address] 2022-05-11 2022-05-11 Telephone [facility] 1.2.840.114 [id number] Univers 00:00:00 00:00:00 Pat ROSA 350.1.13.10 ity of [facility] 4.2.7.2.[place] [phone] Nv dical NAL [address] [place] [address] 2022-05-10 2022-05-10 Orders Doctor PATRICIA 1.2.840.114 [id number] Univers 00:00:00 00:00:00 Only Unassigned, BUDDY 350.1.13.10 ity of [place] [facility] 4.2.7.2.686 [place] as [phone] [address] 2022-04-24 2022-04-24 [facility] 1.2.840.114 [id number] Univers 00:00:00 00:00:00 Antony ROSA 350.1.13.10 i ty of [facility] 4.2.7.2.[place] [phone] [address] 2022-04-24 2022-04-24 [facility] 1.2.840.114 [id number] Univers 00:00:00 00:00:00 Pat ROSA 350.1.13.10 ity of [place].2.[place] [phone] [address] 2022-04-10 2022-04-10 Jasmine [facility] 1.2.840.114 [id number] Univers 00:00:00 00:00:00 Pat ROSA 350.1.13.10 ity of [place].7.2.[place] [phone] [address] 2022-04-05 2022-04-05 [facility] [id number] Co mmon 00:00:00 00:00:00 VISIT EST Spir it PT LEVEL 3 - CHI [facility] 2022-03-28 2022-03-28 [facility] 1.2.840.114 [id number] Univers 00:00:00 00:00:00 Pat ROSA 350.1.13.10 ity of [place]2.[place] [phone] [address] 2022-03-28 2022-03-28 Ferny [facility] 1.2.840.114 [id number] Univers 00:00:00 00:00:00 Pat ROSA 350.1.13.10 ity of [place]2.[place] [phone] [address] 2022-03-26 2022-03-26 Outpatient R FELIX [facility] [id number] Univers 08:40:00 08:40:00 [facility] 2022-03-19 2022-03-19 Outpatient R [facility] [id number] Univers 09:00:00 09:00:00 [facility] 2022-03-06 2022-03-06 Outpatient R [facility] [id number] Univers 13:00:00 13:08:33 PAT [facility] 2022-03-06 2022-03-06 Office [facility] 1.2.840.114 [id number] Univers 13:00:00 13:08:33 Visit Pat ROSA 350.1.13.10 ity [facility] 4[place]2.7.2.[place] [phone] [address] 2022-03-05 2022-03-05 Outpatient DMG [facility] [id number] Devoted 09:00:00 09:00:00 [id number] Medica l Group 2022-02-28 2022-02-28 [facility] 1.2.840.114 [id number] Univers 00:00:00 00:00:00 Antony ROSA 350.1.13.10 i ty of [place]2.[place] [phone] [address] 2022-02-28 2022-02-28 [facility] 1.2.840.114 [id number] Univers 00:00:00 00:00:00 Pat ROSA 350.1.13.10 ity of [facility] 4.2.7.2.[place] [phone] [address] 2022-02-21 2022-02-21 (TEL) STLMLC STLMLC [id number] Co mmon 00:00:00 00:00:00 [facility] 2022-01-14 2022-01-14 (TEL) STLMLC STLMLC [id number] Co mmon 00:00:00 00:00:00 [facility] 2022-01-10 2022-01-10 OFFICE [facility] [id number] Co mmon 00:00:00 00:00:00 VISIT Spirit ESTAB PT - CHI LEVEL 4 [facility] 2021-12-25 2021-12-25 [facility] [id number] Univers 10:00:00 11:18:15 [facility] 2021-12-25 2021-12-25 Office [facility] 1.2.840.114 [id number] Univers 10:00:00 11:18:15 Visit Pat ROSA 350.1.13.10 ity of [place] [phone] [facility] 231 [facility] 2021-12-25 2021-12-25 [facility] [id number] [id number] Univers 10:00:00 10:00:00 [facility] 2021-12-25 2021-12-25 Orders Doctor PATRICIA 1.2.840.114 [id number] Univers 00:00:00 00:00:00 Only Unassigned, BUDDY 350.1.13.10 [facility] 4.2.7.2.686 [place] as [phone] [address] 2021-12-04 2021-12-04 Telephone [facility] 1.2.840.114 [id number] Univers 00:00:00 00:00:00 Pat ROSA 350.1.13.10 ity of [facility] 4.2.7.2.[place] [phone] Nv dical [facility] 044 [facility] 2021-12-04 2021-12-04 (TEL) [facility] [id number] Co mmon 00:00:00 00:00:00 Spirit - [facility] 2021-10-29 2021-10-29 Refill [place] 1.2.840.114 [id number] Univers 00:00:00 00:00:00 Pat ROSA 350.1.13.10 ity of [place] [phone] [facility] 231 [facility] 2021-10-22 2021-10-22 Refill PATRICIA [place] 1.2.840.114 [id number] Univers 00:00:00 00:00:00 Pat GOODWIN 350.1.13.10 ity of [facility] 4.2.7.2.686 [place] as [phone] [facility] 0[address] [place] 2021-10-12 2021-10-12 Telephone [facility] 1.2.840.114 [id number] Univers 00:00:00 00:00:00 Antony ROSA 350.1.13.10 i ty of [place].2.[place] [phone] [facility] 044 [facility] 2021-10-12 2021-10-12 Orders Doctor GOMEZ 1.2.840.114 [id number] Univers 00:00:00 00:00:00 Only Unassigned, BUDDY 350.1.13.10 it[place] of [place] [facility] 4.2.7.2.686 [place] as [phone] [facility] 00[address] [place] 2021-09-28 2021-09-28 Orders Doctor PATRICIA 1.2.840.114 [id number] Univers 00:00:00 00:00:00 Only Unassigned, BUDDY 350.1.13.10 ity of [place] [facility]OSPITAL 4.2.7.2.686 [place] as [phone] [address] 2021-09-26 2021-09-26 Telephone [facility] 1.2.840.114 [id number] Univers 00:00:00 00:00:00 Pat ROSA 350.1.13.10 ity of [place].2.[place] [phone] [facility] 231 [facility] 2021-09-18 2021-09-18 Telephone [facility] 1.2.840.114 [id number] Univers 00:00:00 00:00:00 Pat ROSA 350.1.13.10 ity of [place] 4.2.7.2.[place] [phone] Nv dical NAL 044 [facility] 2021-09-18 2021-09-18 Orders Doctor PATRICIA 1.2.840.114 [id number] Univers 00:00:00 00:00:00 Only Unassigned, BUDDY 350.1.13.10 ity of [place] [facility]OSPITAL 4.2.7.2.686 [place] as [phone] [facility] 00[address] [place] 2021-09-15 2021-09-15 Refill [facility] 1.2.840.114 [id number] Univers 00:00:00 00:00:00 Pat ROSA 350.1.13.10 ity of [place].2.[place] [phone] [facility] NAL 231 [facility] 2021-09-04 2021-09-04 Telephone [facility] 1.2.840.114 [id number] Univers 00:00:00 00:00:00 Pat ROSA 350.1.13.10 ity of [place].7.2.[place] [phone] Nv dical NAL 044 [facility] 2021-09-02 2021-09-02 Outpatient R [facility] [id number] Univers 10:00:00 10:00:00 ity of [facility] 2021-09-02 2021-09-02 Nurse Therapy, Adc Covid Infusion [facility] 1.2.840.114 [id number] Univers 08:11:52 09:11:52 Visit Mike Martin 350.1.13.10 ity of [place]2.7.2.[place] Surgical [phone] [facility] 0[address] [place] 2021-09-02 2021-09-02 Orders Doctor GOMEZ 1.2.840.114 [id number] Univers 00:00:00 00:00:00 Only Unassigned, BUDDY 350.1.13.10 ity of [place] [facility]OSPITAL 4.2.7.2.686 [place] as [phone] [address] 2021-08-29 2021-08-29 Telephone [facility] 1.2.840.114 [id number] Univers 00:00:00 00:00:00 Pat Rosa 350.1.13.10 ity of [place].2.[place] [phone] [facility] 231 [facility] 2021-08-28 2021-08-28 Outpatient [facility] [id number] Univers 08:40:00 08:40:00 PAT [facility] 2021-08-28 2021-08-28 Outpatient [facility] [id number] Univers 08:40:00 08:40:[facility] 2021-08-25 2021-08-25 Telephone [place] 1.2.840.114 [id number] Univers 00:00:00 00:00:00 Pat Rosa 350.1.13.10 ity of [place].2.[place] [phone] [facility] 044 [facility] 2021-08-24 2021-08-24 Telephone [facility] 1.2.840.114 [id number] Univers 00:00:00 00:00:00 Pat Rosa 350.1.13.10 ity of [place].7.2.[place] [phone] Nv dical [facility] 231 [facility] 2021-08-22 2021-08-22 [employer] Tonya, Leigh Lab Main [facility] 1.2.8 40.114 [id number] Univers 12:17:44 12:32:44 Visit Pat [place] 350.1. 13.10 ity of [place] 4.2.7.2.[place] [phone] [facility]v [facility] 353 [facility] 2021-08-22 2021-08-22 Office [place] 1.2.840.114 [id number] Univers 10:21:33 12:05:33 Visit Pat ROSA 350.1.13.10 ity of [facility] 4.2.7.2.[place] [phone] Nv dical [facility] 231 [facility] 2021-08-22 2021-08-22 Outpatient [facility] [id number] [facility] 10:20:00 12:05:33 PAT ity of [facility] 2021-08-22 2021-08-22 Orders Doctor PATRICIA 1.2.840.114 [id number] Univers 00:00:00 00:00:00 Only Unassigned, BUDDY 350.1.13.10 ity of [place] [facility] 4.2.7.2.686 [place] as [phone] [address] 2021-08-17 2021-08-17 [facility] 1.2.840.114 8 [id number] Univers 00:00:00 00:00:00 Antony Rosa 350.1.13.10 i ty of [place] 4[place]2.7.2.[place] [phone] [facility]v [facility] 044 [facility] 2021-08-07 2021-08-07 Telephone [facility] 1.2.840.114 [id number] Univers 00:00:00 00:00:00 Pat Rosa 350.1.13.10 ity of [place].7.2.[place] [phone] Nv dical [facility] 044 [facility] 2021-08-03 2021-08-03 Telephone [facility] 1.2.840.114 [id number] Univers 00:00:00 00:00:00 Pat Rosa 350.1.13.10 ity of [place].7.2.[place] [phone] Nv dical nal 231 [facility] 2021-07-30 2021-07-30 Orders Doctor GOMEZ 1.2.840.114 [id number] Univers 00:00:00 00:00:00 Only Unassigned, BUDDY 350.1.13.10 ity of [place] HOSPITAL 4.2.7.2.686 [place] as [phone] [facility] [address] [place] 2021-07-28 2021-07-28 Refill PATRICIA [place] 1.2.840.114 [id number] Univers 00:00:00 00:00:00 Pat GOODWIN 350.1.13.10 ity of HOSPITAL 4.2.7.2.686 [place] as [phone] [facility] 0[address] [place] 2021-07-28 2021-07-28 Telephone [facility] 1.2.840.114 [id number] Univers 00:00:00 00:00:00 Pat [place] 350.1.13.10 ity of [place].7.2.[place] [phone] Nv dicvalor health 231 [facility] 2021-07-27 2021-07-27 [place] 1.2.840.114 [id number] Univers 00:00:00 00:00:00 Pat [place] 350.1.13.10 ity of [place] 4.2.7.2.[place] [phone] Nv dical nal 044 [facility] 2021-07-12 2021-07-12 [place] 1.2.840.114 [id number] Univers 00:00:00 00:00:00 Pat [place] 350.1.13.10 ity of [place] 4[place]2.7.2.[place] [phone] Nv dical nal 044 [facility] 2021-07-11 2021-07-11 Orders Doctor PATRICIA 1.2.840.114 [id number] Univers 00:00:00 00:00:00 Only Unassigned, BUDDY 350.1.13.10 ity of [place] [facility]OSPITAL 4.2.7.2.686 [place] as [phone] [facility] 00[address] [place] 2021-07-03 2021-07-03 Telephone [facility] 1.2.840.114 8 [id number] Univers 00:00:00 00:00:00 Pat A [place] 350.1.13.10 ity of [place] 4[place]2.7.2.[place] [phone] Nv dical nal 044 [facility] 2021-07-03 2021-07-03 Telephone [facility] 1.2.840.114 [id number] Univers 00:00:00 00:00:00 Pat [place] 350.1.13.10 ity of [place] 4.[place].2.[place] [phone] Nv dical nal 044 [facility] 2021-06-29 2021-06-29 [place] 1.2.840.114 [id number] [facility] 00:00:00 00:00:00 Pat [place] 350.1.13.10 ity of [place] 4.[place].7.2.[place] [phone] Nv dicdc nal 231 [facility] 2021-06-29 2021-06-29 [place] 1.2.840.114 [id number] [facility] 00:00:00 00:00:00 Pat Rosa 350.1.13.10 ity of [place] 4[place].7.2.[place] [phone] Nv dical nal 231 [facility] 2021-06-28 2021-06-28 Outpatient R CHACE JOHNSON [facility] [id number] Univers 10:00:00 10:00:00 CHACE JOHNSON ity of [facility] 2021-06-28 2021-06-28 Office Elizabeth [facility] 1.2.801.342 [id number] Univers 09:24:35 09:44:35 Visit Chace Rosa 350.1.13.10 ity of [place].7.2.[place] [phone] Nv dical nal 085 [facility] 2021-06-27 2021-06-27 Nurse Nurse, Leigh [facility] 1.2.840.114 [id number] Univers 10:42:04 12:51:50 Visit Pat [place] 350.1. 13.10 ity of [place] 4.2.7.2.[place] [phone] Nv dical nal 044 [facility] 2021-06-27 2021-06-27 Outpatient R [facility] [id number] Univers 10:00:00 10:00:00 ity of [facility] 2021-06-26 2021-06-26 Orders Doctor PATRICIA 1.2.840.114 [id number] Univers 00:00:00 00:00:00 Only Unassigned, BUDDY 350.1.13.10 it[place] of [place] [facility] 4.2.7.2.686 [place] as [phone] [address] 2021-06-26 2021-06-26 Orders Doctor PATRICIA 1.2.840.114 [id number] Univers 00:00:00 00:00:00 Only Unassigned, BUDDY 350.1.13.10 it[place] of [place] [facility]OS[facility] 4.2.7.2.686 [place] as [phone] [address] 2021-06-22 2021-06-22 Telemedici [facility] 1.2.840.114 [id number] Univers 14:58:03 17:09:36 ne Visit Pat Rosa 350.1.13.10 ity of [place].2.[place] [phone] [facility] dicvalor [facility] 231 [facility] 2021-06-22 2021-06-22 Outpatient [facility] [id number] Univers 15:00:00 15:00:00 PAT duron of [facility] 2021-06-15 2021-06-15 Telephone [facility] 1.2.840.114 [id number] Univers 00:00:00 00:00:00 Antony Rosa 350.1.13.10 i ty of [place].2.[place] [phone] Nv dicdc nal 044 [facility] 2021-06-13 2021-06-13 Outpatient R [facility] [id number] Univers 14:30:00 14:30:00 CHRISTINE duron o f [facility] 2021-06-13 2021-06-13 Office [facility] 1.2.840.114 [id number] Univers 13:28:05 13:58:14 Visit Christine Rosa 350.1.13.10 ity of [place] [phone] [facility] 044 [facility] 2021-06-08 2021-06-08 Orders Doctor PATRICIA 1.2.840.114 [id number] Univers 00:00:00 00:00:00 Only Unassigned, BUDDY 350.1.13.10 it[place] of [place] [facility] 4.2.7.2.686 [place] as [phone] [address] 2021-06-07 2021-06-07 [facility] 1.2.840.114 [id number] Univers 00:00:00 00:00:00 Pat Rosa 350.1.13.10 ity of [place] [phone] [facility] 231 [facility] 2021-06-02 2021-06-02 [facility] 1.2.840.114 [id number] Univers 00:00:00 00:00:00 Pat Rosa 350.1.13.10 ity of [place].2.[place] [phone] [facility] 231 [facility] 2021-05-30 2021-05-30 Orders Doctor PATRICIA 1.2.840.114 [id number] Univers 00:00:00 00:00:00 Only Unassigned, BUDDY 350.1.13.10 [place] of [place] [facility] 4.2.7.2.686 [place] as [phone] [address] 2021-05-24 2021-05-24 [place] 1.2.840.114 [id number] Univers 00:00:00 00:00:00 Pat A [place] 350.1.13.10 ity of [place].7.2.[place] [phone] Nv dic[facility]or [facility] 044 [facility] 2021-05-19 2021-05-19 OFFICE [facility] [id number] Co mmon 00:00:00 00:00:00 VISIT EST Spir it PT LEVEL 3 - [facility] 2021-05-12 2021-05-12 Telephone [facility] 1.2.840.114 [id number] [facility] 00:00:00 00:00:00 Pat Rosa 350.1.13.10 ity of [place].2.[place] [phone] Nv dicvalor health 231 [facility] 2021-05-12 2021-05-12 Telephone [facility] 1.2.840.114 8 [id number] 00:00:00 00:00:00 Pat Rosa 350.1.13.10 [place] 4.2.7.2.686 Professio [phone] [address] 2021-05-08 2021-05-08 Office [facility] 1.2.840.114 [id number] Univers 09:00:51 12:57:56 Visit Pat Rosa 350.1.13.10 [id number] [phone] [address] 2021-05-08 2021-05-08 [facility] 1.2.840.114 [id number] Univers 09:00:19 12:29:44 Visit Pat Rosa 350.1.13.10 [id number] [phone] [address] 2021-05-08 2021-05-08 Outpatient R FELIX [facility] [id number] Univers 10:00:00 10:00:00 PAT duron of [facility] 2021-05-08 2021-05-08 Orders Doctor PATRICIA 1.2.840.114 [id number] Univers 00:00:00 00:00:00 Only Unassigned, BUDDY [id number] [facility] [place] [facility] 4.2.7.2.686 [place] as [phone] [address] 2021-04-26 2021-04-26 Telephone [facility] 1.2.840.114 [id number] Univers 00:00:00 00:00:00 Pat A [place] [id number] [id number] [phone] [address] 2021-04-25 2021-04-25 Telephone [facility] 1.2.840.114 [id number] Univers 00:00:00 00:00:00 Pat A [place] [id number] [id number] [phone] [address] 2021-04-19 2021-04-19 Orders Doctor PATRICIA 1.2.840.114 [id number] Univers 00:00:00 00:00:00 Only Unassigned, BUDDY [id number] [facility] [place] [facility] 4.2.7.2.686 [place] as [phone] [address] 2021-04-19 2021-04-19 OFFICE [facility] [id number] Co mmon 00:00:00 00:00:00 VISIT [facility] it PT LEVEL 3 - [facility] 2021-04-13 2021-04-13 Outpatient Zane BOATENG [facility] [id number] Univers 09:30:00 09:30:00 CHRISTINE kumar [facility] 2021-04-10 2021-04-10 [facility] 1.2.840.114 [id number] Univers 00:00:00 00:00:00 Pat Evelyne [place] [id number] [place] [phone] [place] dical nal 231 [facility] 2021-04-06 2021-04-06 [employer] Tonya, [facility] 1.2.8 40.114 [id number] Univers 15:49:04 16:04:04 Visit Christine Boateng Cleo 350.1.13.10 [id number] [phone] [place] [facility] 353 [facility] 2021-04-06 2021-04-06 Outpatient R [facility] [id number] Univers 15:30:00 15:30:00 CHRISTINE kumar [facility] 2021-04-06 2021-04-06 Office [facility] 1.2.840.114 [id number] Univers 14:38:26 15:24:02 Visit Christine Rosa [id number] [place] [phone] [facility] 044 [facility] 2021-04-05 2021-04-05 Outpatient R [facility] [id number] Univers 15:30:00 15:30:00 CHRISTINEMaria Ines kumar [facility] 2021-04-04 2021-04-04 Telephone [facility] 1.2.840.114 [id number] Univers 00:00:00 00:00:00 Pat Rosa 350.1.13.10 [place] [phone] [facility] 231 [facility] 2021-03-22 2021-03-22 Telephone [facility] 1.2.840.114 [id number] Univers 00:00:00 00:00:00 Pat Rosa [id number] [id number] [phone] N[place] dical [facility] 044 [facility] 2021-03-13 2021-03-13 Refill [place], [facility] 1.2.840.114 [id number] Univers 00:00:00 00:00:00 Pat Rosa [id number] [place] [phone] [address] 2021-03-03 2021-03-03 Telephone [place], [facility] 1.2.840.114 [id number] Univers 00:00:00 00:00:00 Pat Rosa [id number] [place] [phone] [address] 2021-03-02 2021-03-02 Orders Doctor PATRICIA 1.2.840.114 [id number] Univers 00:00:00 00:00:00 Only Unassigned, BUDDY [id number] ity [place] [facility] 4.2.7.2.686 [place] [phone] [facility] [address] [place] 2021-02-10 2021-02-10 Pre Visit PATRICIA Stern 1.2.840.114 [id number] Univers 00:00:00 00:00:00 Outreach Steven GOODWIN [id number] i ty of [facility] 4.2.7.2.686 [place] [phone] [facility] [address] [place] 2020-12-01 2020-12-01 Telephone [facility] 1.2.840.114 [id number] Univers 00:00:00 00:00:00 Pat Rosa [id number] [place] [phone] [address] 2020-11-30 2020-11-30 [facility] 1.2.840.114 [id number] Univers 00:00:00 00:00:00 Pat Rosa 350.1.13.10 [place] [phone] [address] 2020-11-29 2020-11-29 Orders Doctor PATRICIA 1.2.840.114 [id number] Univers 00:00:00 00:00:00 Only Unassigned, BUDDY [id number] [place] [facility] 4.2.7.2.686 [place] [phone] [address] 2020-11-27 2020-11-27 [facility] 1.2.840.114 [id number] Univers 00:00:00 00:00:00 Pat Rosa 350.1.13.10 [place] [phone] [address] 2020-11-09 2020-11-09 Telephone Felix [facility] 1.2.840.114 [id number] Univers 00:00:00 00:00:00 Pat Rosa 350.1.13.10 [place] [phone] [address] 2020-11-05 2020-11-05 [facility] 1.2.840.114 [id number] Univers 00:00:00 00:00:00 Pat Rosa 350.1.13.10 [place] [phone] [address] 2020-10-26 2020-10-26 [employer] 2, Adc Lab [facility] 1.2.840.114 [id number] Univers 08:33:02 08:48:02 Visit Pat [place] 350.1. 13.10 [place] [phone] [address] 2020-10-26 2020-10-26 Outpatient R FELIX [facility] [id number] Univers 08:30:00 08:30:00 PAT itmaria ines of [facility] 2020-10-24 2020-10-24 [facility] 1.2.840.114 [id number] Univers 00:00:00 00:00:00 Pat Rosa 350.1.13.10 [place] [phone] [facility] 231 [facility] 2020-10-24 2020-10-24 Telephone [facility] 1.2.840.114 [id number] Univers 00:00:00 00:00:00 Pat Rosa 350.1.13.10 [place] [phone] [address] 2020-09-13 2020-09-13 Outpatient [facility] [id number] Univers 16:40:00 16:40:00 PAT ity of [facility] 2020-09-13 2020-09-13 Telemedici [facility] 1.2.840.114 [id number] Univers 08:10:34 08:30:34 ne Visit Pat Rosa 350.1.13.10 [place] [phone] [address] 2020-09-02 2020-09-02 Telephone [facility] 1.2.840.114 [id number] Univers 00:00:00 00:00:00 Pat Rosa 350.1.13.10 [place] [phone] [address] 2020-09-01 2020-09-01 Orders Doctor PATRICIA 1.2.840.114 [id number] Univers 00:00:00 00:00:00 Only Unassigned, BUDDY 350.1.13.10 [place] [facility] 4.2.7.2.686 [place] [phone] [address] 2020-08-25 2020-08-25 Telephone [facility] 1.2.840.114 [id number] Univers 00:00:00 00:00:00 Pat A [place] 350.1.13.10 [place] [phone] [place] dical nal 231 [facility] 2020-08-24 2020-08-24 Orders Doctor PATRICIA 1.2.840.114 [id number] [facility] 00:00:00 00:00:00 Only Unassigned, BUDDY 350.1.13.10 [place] [facility] 4.2.7.2.686 [place] [phone] [address] 2020-08-23 2020-08-23 Telephone [facility] 1.2.840.114 [id number] Univers 00:00:00 00:00:00 Pat Rosa 350.1.13.10 [place] [phone] [facility] 231 [facility] 2020-08-23 2020-08-23 Telephone [facility] 1.2.840.114 [id number] Univers 00:00:00 00:00:00 Pat Rosa 350.1.13.10 [place] [phone] N[place] dical nal 231 [facility] 2020-08-22 2020-08-22 Telephone [facility] 1.2.840.114 [id number] Univers 00:00:00 00:00:00 Pat Rosa 350.1.13.10 [place] [phone] N[place] dical nal 231 [facility] 2020-07-27 2020-07-27 [place] 1.2.840.114 [id number] Univers 00:00:00 00:00:00 Pat [place] 350.1.13.10 [place] [phone] N[place] dical nal 044 [facility] 2020-07-19 2020-07-19 Telephone [facility] 1.2.840.114 [id number] Univers 00:00:00 00:00:00 Pat A [place] 350.1.13.10 it[place] [phone] [address] 2020-07-05 2020-07-05 [place] 1.2.840.114 [id number] Univers 00:00:00 00:00:00 Pat A [place] 350.1.13.10 [place] [phone] [address] 2020-07-04 2020-07-04 Orders Doctor PATRICIA 1.2.840.114 [id number] Univers 00:00:00 00:00:00 Only Unassigned, BUDDY 350.1.13.10 [place] [facility] 4.2.7.2.686 [place] [phone] [address] 2020-06-22 2020-06-22 Outpatient R CHACE JOHNSON [facility] [id number] Univers 09:30:00 09:30:00 CHACE JOHNSON ity of [facility] 2020-06-22 2020-06-22 Orders Doctor PATRICIA 1.2.840.114 [id number] Univers 00:00:00 00:00:00 Only Unassigned, BUDDY 350.1.13.10 [place] [facility] 4.2.7.2.686 [place] [phone] [address] 2020-05-27 2020-05-27 [facility] 1.2.840.114 [id number] [facility] 00:00:00 00:00:00 Pat A [place] 350.1.13.10 [place] [phone] [address] 2020-04-21 2020-04-21 Orders Doctor PATRICIA 1.2.840.114 [id number] Univers 00:00:00 00:00:00 Only Unassigned, BUDDY 350.1.13.10 [place] [facility] 4.2.7.2.686 [place] [phone] [address] 2020-04-15 2020-04-15 Telephone [facility] 1.2.840.114 [id number] Univers 00:00:00 00:00:00 Chace Rosa 350.1.13.10 [place] [phone] [facility] 085 [facility] 2020-04-09 2020-04-09 Outpatient R [facility] [id number] Univers 12:00:00 12:00:00 ity of [facility] 2020-04-09 2020-04-09 Orders Doctor PATRICIA 1.2.840.114 [id number] Univers 00:00:00 00:00:00 Only Unassigned, BUDDY 350.1.13.10 [place] [facility] 4.2.7.2.686 [place] [phone] [address] 2020-02-29 2020-02-29 [facility]medici [facility] 1.2.840.114 [id number] Univers 08:01:08 19:37:06 ne Visit Pat Rosa 350.1.13.10 ity [facility] [place] [phone] [address] 2020-02-29 2020-02-29 [facility] [id number] Univers 14:20:00 14:20:00 [facility] 2020-01-05 2020-01-05 [facility] [id number] Univers 12:20:00 12:20:00 [facility] 2020-01-01 2020-01-01 [facility] 1.2.840.114 [id number] Univers 00:00:00 00:00:00 Pat Rosa 350.1.13.10 [place] [phone] [address] 2019-11-23 2019-11-23 [facility] 1.2.840.114 [id number] Univers 00:00:00 00:00:00 Pat Evelyne [place] 350.1.13.10 [place] [phone] [address] 2019-11-16 2019-11-16 [facility]ill [facility] 1.2.840.114 [id number] Univers 00:00:00 00:00:00 Pat A Health 350.1.13.10 ity of [place] 4.2.7.2.686 [place] Professio [phone] [address] Office [facility] 2019-07-23 2019-07-23 [employer] 2, Adc Lab [facility] 1.2.840.114 [id number] Univers 10:03:31 10:18:31 Visit Pat [place] 350.1. 13.10 [place] [phone] [facility] 353 [facility] 2019-07-23 2019-07-23 Orders Doctor PATRICIA 1.2.840.114 [id number] Univers 00:00:00 00:00:00 Only Unassigned, BUDDY 350.1.13.10 [place] [facility] 4.2.7.2.686 [place] [phone] [address] 2019-07-16 2019-07-16 [facility]phone [facility] 1.2.840.114 [id number] Univers 00:00:00 00:00:00 Pat Rosa 350.1.13.10 [place] [phone] [facility] 044 [facility] 2019-07-10 2019-07-10 Telephone Felix [facility] 1.2.840.114 [id number] Univers 00:00:00 00:00:00 Pat A Health 350.1.13.10 ity of [place] 4.2.7.2.686 [place] Professio [phone] [address] [facility] 2019-07-02 2019-07-02 Telephone [facility] 1.2.840.114 7 [id number] Univers 00:00:00 00:00:00 Pat A [place] 350.1.13.10 [place] [phone] [facility] 044 [facility] 2019-06-24 2019-06-24 Telephone [facility] 1.2.840.114 [id number] Univers 00:00:00 00:00:00 Pat A [place] 350.1.13.10 [place] [phone] [facility] 231 [facility] 2019-06-24 2019-06-24 Telephone [facility] 1.2.840.114 [id number] Univers 00:00:00 00:00:00 Pat A [place] 350.1.13.10 [place] [phone] [facility] 044 [facility] 2019-06-17 2019-06-17 Office [facility] 1.2.372.880 [id number] [facility] 09:19:41 09:42:21 Visit Chace Rosa 350.1.13.10 it[place] [phone] [facility] 085 [facility] 2019-06-17 2019-06-17 Orders Doctor PATRICIA 1.2.840.114 [id number] Univers 00:00:00 00:00:00 Only Unassigned, BUDDY 350.1.13.10 [place] [facility] 4.2.7.2.686 [place] [phone] [address] 2019-06-10 2019-06-10 Telephone [facility] 1.2.840.114 [id number] Univers 00:00:00 00:00:00 Pat A [place] 350.1.13.10 [place] Prof[place]nie[place] [phone] Nv dical nal [address] Results This patient has no known results.
--- NOTE | 2023-06-18 11:54 | RAD REPORT ---
EXAM DESCRIPTION: RAD - Tib Fib Left - 06/18/2023 11:46 am CLINICAL HISTORY: Pain;Swelling COMPARISON: No comparisons FINDINGS: Significant soft tissue swelling and edema is seen involving the left leg, greatest in pre tibial region. No soft tissue gas seen. No fracture or underlying evidence of osteomyelitis. Prominen t calcaneal spurs.
[2023-06-18 11:57] LABS: Absolute Lymphocytes (CBC) 1.7 K/uL (0.7-4.9); Hematocrit 41.4 % (39.6-49.0); Lymphocytes % 17.6 % (15.3-44.8); MCV 84.8 fL (80-100); MPV 7.4 fL (7.6-11.3); Platelets 202 thou/uL (152-406); RBC Red Blood Cell Count 4.88 M/uL (4.33-5.43)
--- NOTE | 2023-06-18 11:57 | RAD REPORT ---
EXAM DESCRIPTION: RAD - Tib Fib Right - 06/18/2023 11:47 am CLINICAL HISTORY: Pain;Swelling COMPARISON: No comparisons FINDINGS: There is a large amount of soft tissue swelling involving the right leg. Prominent swellin g seen in the pretibial soft tissues. No soft tissue gas is present. No radiopaque foreign body. No e vidence of underlying osteomyelitis.
[2023-06-18 12:13] LABS: Albumin 2.7 g/dL (3.4-5.0); Bilirubin Total 0.4 mg/dL (0.2-1.0); Potassium 3.8 mEq/L (3.5-5.1)
--- NOTE | 2023-06-18 12:38 | EDPHYS ---
Physician Documentation [facility] Name: Chay Judge Age: 72 yrs Sex: Male : 1950 Arrival Date: 06/18/2023 Time: 11:11 Bed 15 Private MD: ED Physician Tom Stratton HPI: 06/18 14:21 This 72 yrs old Male presents to ER via Ambulatory with complaints of Abscess, kdr Leg Pain. Historical: - Allergies: 11:33 No Known Allergies; kc6 - PMHx: 11:33 CHF; Diabetes - NIDDM; Hypertension; Dementia; Sleep apnea; TIA; kc6 - PSHx: 11:33 Appendectomy; kc6 - Immunization history:: Client reports receiving the 2nd dose of the Covid vaccine, Flu vaccine is not up to date. - Social history:: Smoking status: Patient/guardian denies using tobacco, Stopped _ months ago 3. ROS: 14:23 Constitutional: Negative for fever, chills, and weight loss, Eyes: Negative for injury, kdr pain, redness, and discharge, ENT: Negative for injury, pain, and discharge, Neck: Negative for injury, pain, and swelling, Cardiovascular: Negative for chest pain, palpitations, and edema, Respiratory: Negative for shortness of breath, cough, wheezing, and pleuritic chest pain, Abdomen/GI: Negative for abdominal pain, nausea, vomiting, diarrhea, and constipation, Back: Negative for injury and pain, : Negative for injury, bleeding, discharge, and swelling, MS/Extremity: Negative for injury and deformity, Neuro: Negative for headache, weakness, numbness, tingling, and seizure activity. Psych: Negative for depression, anxiety, suicide ideation, homicidal ideation, and hallucinations, Allergy/Immunology: Negative for hives, rash, and allergies, Endocrine: Negative for neck swelling, polydipsia, polyuria, polyphagia, and marked weight changes, Hematologic/Lymphatic: Negative for swollen nodes, abnormal bleeding, and unusual bruising. 14:23 Skin: Positive for cellulitis, of the right leg and left leg, Patient has extensive venous stasis disease, swelling and erythema to his bilateral lower extremities from mid calf down. Patient family state that his main concern is his ulcerated areas that are more painful and not improving. Patient denies any systemic signs or symptoms associated with possible sepsis or worsening cellulitis. Patient had something similar several years ago and was put on a course of antibiotics which resolved the issue. Recently he was seen at an urgent care where they did not prescribe any antibiotics and so he continues to have the pain and ulcerated areas without improvement. Patient is nontoxic and not urgent on a presentation. Exam: 14:23 Constitutional: This is a well developed, well nourished patient who is awake, alert, kdr and in no acute distress. Head/Face: Normocephalic, atraumatic. Eyes: Pupils equal round and reactive to light, extra-ocular motions intact. Lids and lashes normal. Conjunctiva and sclera are non-icteric and not injected. Cornea within normal limits. Periorbital areas with no swelling, redness, or edema. Neck: Trachea midline, no thyromegaly or masses palpated, and no cervical lymphadenopathy. Supple, full range of motion without nuchal rigidity, or vertebral point tenderness. No Meningismus. 14:23 Skin: cellulitis, that is moderate, that is severe, confluent, induration, that is moderate is noted, located on the right leg and left leg. Vital Signs: 11:32 BP 157 / 76; Pulse 84; Resp 19 S; Temp 98.4(O); Pulse Ox 96% on R/A; Weight 122.47 kg kc6 (R); Height 5 ft. 3 in. (R); 12:23 BP 134 / 78; Pulse 78; Resp 18 S; Pulse Ox 96% on R/A; kc6 11:32 Body Mass Index 47.83 (122.47 kg, 160.02 cm) kc6 MDM: 12:37 Patient medically screened. kdr 14:23 Data reviewed: vital signs, nurses notes, lab test result(s), radiologic studies. kdr 06/18 11:32 Order name: CBC with Diff; Complete Time: 12:30 kdr 06/18 11:32 Order name: CMP; Complete Time: 12:30 kdr 06/18 11:32 Order name: Tib Fib Left XRAY; Complete Time: 12:30 kdr 06/18 11:32 Order name: Tib Fib Right XRAY; Complete Time: 12:30 kdr Administered Medications: 12:44 Drug: Cephalexin PO 500 mg Route: PO; kc6 12:44 Drug: Trimethoprim-Sulfamethoxazole PO (160 mg-800 mg (DS) 1 tablet Route: PO; kc6 Disposition Summary: 06/18/23 12:37 Discharge Ordered Location: Home kdr Problem: an ongoing problem kdr Symptoms: have improved kdr Condition: Stable kdr Diagnosis - Cellulitis of left lower limb kdr - Cellulitis of right lower limb kdr - Diabetes mellitus kdr Followup: kdr - With: Private Physician - When: 2 - 3 days - Reason: If symptoms return, Further diagnostic work-up, Recheck today's complaints, Continuance of care, Re-evaluation by your physician Discharge Instructions: - Discharge Summary Sheet kdr - Cellulitis, Adult, Rcup-nl-Smxh kdr - How to Change Your Wound Dressing, Wslg-rb-Kvnl kdr Forms: - Medication Reconciliation Form kdr - Thank You Letter kdr - Antibiotic Education kdr - Patient Portal Instructions kdr Prescriptions: - Cephalexin 500 mg Oral Capsule - take 1 capsule by ORAL route every 6 hours for 10 days; 40 capsule; Refills: 0, kdr Product Selection Permitted - Bactrim DS 800-160 mg Oral Tablet - take 1 tablet by ORAL route every 12 hours for 10 days; 20 tablet; Refills: 0, kdr Product Selection Permitted Signatures: Dispatcher [employer] Tom Powell MD MD kdr Effie Ramon RN RN kc6
--- NOTE | 2023-06-18 12:38 | ER ---
Nurse's Notes [facility] Name: Chay Judge Age: 72 yrs Sex: Male : 1950 Arrival Date: 06/18/2023 Time: 11:11 Bed 15 Private MD: Diagnosis: Cellulitis of left lower limb;Cellulitis of right lower limb;Diabetes mellitus Presentation: 06/18 11:32 Chief complaint: Patient states: diabetic leg ulcers to the BLE with worsening pain. kc Coronavirus screen: At this time, the client does not indicate any symptoms associated with coronavirus-19. Ebola Screen: No symptoms or risks identified at this time. Initial Sepsis Screen: Does the patient meet any 2 criteria? No. Patient's initial sepsis screen is negative. Does the patient have a suspected source of infection? No. Patient's initial sepsis screen is negative. Risk Assessment: Do you want to hurt yourself or someone else? Patient reports no desire to harm self or others. Onset of symptoms was June 18, 2023. 11:32 Method Of Arrival: Ambulatory [facility] 11:32 Acuity: YUSRA 3 kc6 Triage Assessment: 11:33 General: Appears in no apparent distress. comfortable, obese, unkempt, Behavior is kc6 calm, cooperative, appropriate for age. Pain: Complains of pain in right leg and left leg Pain does not radiate. EENT: No signs and/or symptoms were reported regarding the EENT system. Neuro: Level of Consciousness is awake, alert, obeys commands, Oriented to person, place, time, situation, Appropriate for age. Cardiovascular: Denies chest pain, shortness of breath, Capillary refill < 3 seconds Edema is 3+ to left midcalf, left ankle, right midcalf and right ankle pitting to left midcalf, left ankle, right midcalf and right ankle. Respiratory: Airway is patent Trachea midline Respiratory effort is even, unlabored, Respiratory pattern is regular, symmetrical. GI: No signs and/or symptoms were reported involving the gastrointestinal system. : No signs and/or symptoms were reported regarding the genitourinary system. Derm: Skin is pink, warm \T\ dry. DEWAYNE lower extremity ulcers present. covered in gauze and bing wrap. Musculoskeletal: No signs and/or symptoms reported regarding the musculoskeletal system. Circulation, motion, and sensation intact. Capillary refill < 3 seconds, Range of motion: intact in all extremities. Historical: - Allergies: 11:33 No Known Allergies; kc6 - PMHx: 11:33 CHF; Diabetes - NIDDM; Hypertension; Dementia; Sleep apnea; TIA; kc6 - PSHx: 11:33 Appendectomy; kc6 - Immunization history:: Client reports receiving the 2nd dose of the Covid vaccine, Flu vaccine is not up to date. - Social history:: Smoking status: Patient/guardian denies using tobacco, Stopped _ months ago 3. Screenin:36 [facility] ED Fall Risk Assessment (Adult) History of falling in the last 3 months, kc6 including since admission No falls in past 3 months (0 pts) Confusion or Disorientation No (0 pts) Intoxicated or Sedated No (0 pts) Impaired Gait No (0 pts) Mobility Assist Device Used No (0 pt) Altered Elimination No (0 pt) Score/Fall Risk Level 0 - 2 = Low Risk. Abuse screen: Denies threats or abuse. Denies injuries from another. Nutritional screening: No deficits noted. Tuberculosis screening: No symptoms or risk factors identified. Assessment: 11:36 Reassessment: please see triage assessment. kc6 12:23 Reassessment: Patient appears in no apparent distress at this time. No changes from [facility] previously documented assessment. Patient and/or family updated on plan of care and expected duration. Pain level reassessed. Patient is alert, oriented x 3, equal unlabored respirations, skin warm/dry/pink. Vital Signs: 11:32 BP 157 / 76; Pulse 84; Resp 19 S; Temp 98.4(O); Pulse Ox 96% on R/A; Weight 122.47 kg kc6 (R); Height 5 ft. 3 in. (R); 12:23 BP 134 / 78; Pulse 78; Resp 18 S; Pulse Ox 96% on R/A; kc6 11:32 Body Mass Index 47.83 (122.47 kg, 160.02 cm) 6 ED Course: 11:13 Patient arrived in ED. rg4 11:23 Tom Stratton MD is Attending Physician. kdr 11:32 Effie Ramon RN is Primary Nurse. kc6 11:33 Triage completed. kc6 11:33 Arm band placed on. kc6 11:36 Patient has correct armband on for positive identification. Bed in low position. Call kc6 light in reach. Side rails up X2. Adult w/ patient. 11:48 Tib Fib Left XRAY In Process Unspecified. EDMS 11:48 Tib Fib Right XRAY In Process Unspecified. EDMS 12:00 Dressings:. Wound care: to diabetic leg ulcers located on right leg and left leg was kc6 cleaned with soap and water, dressed with 4X4s, BING Wrap, Patient tolerated well. 13:13 No provider procedures requiring assistance completed. IV discontinued, intact, kc6 bleeding controlled, No redness/swelling at site. Pressure dressing applied. Administered Medications: 12:44 Drug: Cephalexin PO 500 mg Route: PO; kc6 12:44 Drug: Trimethoprim-Sulfamethoxazole PO (160 mg-800 mg (DS) 1 tablet Route: PO; kc6 Medication: 13:13 VIS not applicable for this client. kc6 Outcome: 12:37 Discharge ordered by . kdr 13:13 Discharged to home ambulatory, with friend. kc6 13:13 Condition: improved 13:13 Discharge instructions given to patient, Instructed on discharge instructions, follow up and referral plans. medication usage, wound care, Demonstrated understanding of instructions, follow-up care, medications, wound care, Prescriptions given X 2. 13:13 Patient left the ED. kc6 Signatures: Dispatcher [employer] Tom Powell MD MD kdr Garcia, Rubi rg4 Effie Ramon RN RN kc6
[2023-06-18] MEDS ORDERED: CEPHALEXIN 250 MG CAP ONE (12:50)
[2023-06-18] MEDS ORDERED: SMZ./TMP. 800/160 MG TABLET ONE (12:50)
[2023-06-18 13:18] VITALS: TEMP 98.4; O2SAT 96
[2023-06-18 13:19] VITALS: BP 134/78
== END 2023-06-18 13:13 | disposition home or self-care (01) ==
LOC: ER 11:11
DX: L03.116 Cellulitis of left lower limb (principal); L03.115 Cellulitis of right lower limb; E11.9 Type 2 diabetes mellitus without complications; I10 Essential (primary) hypertension; I50.9 Heart failure, unspecified; F03.90 Unspecified dementia, unspecified severity, without behavioral disturbance, psychotic disturbance, mood disturbance, and anxiety
CPT/HCPCS: 36415; 80053; 85025